=== PATIENT | male | born 1990 | race African-American/Black ===

== ENCOUNTER 2016-11-01 23:07 | Emergency (ER) | payer BC ==
[2016-11-02] MEDS ORDERED: Metoclopramide IV* 5 MG/ML 2 ML VIAL IV ONE (00:18)
[2016-11-02] MEDS ORDERED: Morphine INJ* 4 MG/ML 1 ML SYRINGE IV ONE (00:18)
[2016-11-02] MEDS ORDERED: NS 0.9% 1000 ML* 1,000 ML IV ONE (00:18)
[2016-11-02] MEDS ORDERED: LORazepam INJ* 2 MG/ML 1 ML VIAL IV PUSH ONE (00:19)
[2016-11-02 00:33] LABS: Hematocrit 48 % (42-52); Hemoglobin 15.9 g/dl (14.0-18.0); Mean Corpuscular HGB Conc 33 g/dl (31-36); Mean Corpuscular Hemoglobin 29 pg (27-31); Mean Corpuscular Volume 89 fL (80-94); Mean Platelet Volume 9 um3 (7.4-10.4); Red Blood Count 5.39 10^6/ul (4.0-5.4); Red Cell Distribution Width 14 % (10.5-15); White Blood Count 8.7 10^3/ul (3.5-10.8)
--- NOTE | 2016-11-02 00:52 | ED ---
Ray Marino SooYoung, scribed for Jose Bourne MD on 11/02/16 at 0019 . GI/ HPI - HPI Summary HPI Summary: A 25 y/o M presents to ED with c/o vomiting onset approx 2029. Associated sx: chills. Pert PMHx: cyclical vomiting syndrome, dx 04/27/2016. Last seen in ED on 04/29/2016. Mother states, pt has been previously given Ativan and Reglan which helped. PCP is Dr. Lopes. - History of Current Complaint Chief Complaint: EDNauseaVomitDiarrh Time Seen by Provider: 11/02/16 00:13 Stated Complaint: VOMITING Hx Obtained From: Patient, Family/Inspector [employer] Onset/Duration: Started Hours Ago - approx 2029, Still Present Timing: Intermittent Pain Intensity: 7 - out of 10 Associated Signs and Symptoms: Positive: Chills - Allergy/Home Medications Allergies/Adverse Reactions: Allergies Allergy/AdvReac Type Severity Reaction Status Date / Time No Known Allergies Allergy Verified 04/29/16 10:18 PMH/Surg Hx/FS Hx/Imm Hx Previously Healthy: No Endocrine/Hematology History: Denies: Hx Diabetes, Hx Thyroid Disease Cardiovascular History: Denies: Hx Congestive Heart Failure, Hx Hypertension Respiratory History: Reports: Hx Asthma Denies: Hx Chronic Obstructive Pulmonary Disease (COPD) GI History: Denies: Hx Ulcer History: Denies: Hx Renal Disease Psychiatric History: Reports: Hx Attention Deficit Hyperactivity Disorder Infectious Disease History: Denies: Hx Hepatitis, Hx Human Immunodeficiency Virus (HIV), Traveled Outside the [place] in Last 30 Days - Family History Known Family History: Positive: Unknown Family History: Pt is adopted. - Social History Occupation: Employed Full-time Lives: With Family Alcohol Use: Occasionally Alcohol Amount: "a few drinks once or twice a month" "I just drank too much last time" Hx Substance Use: Yes Substance Use Type: Reports: Sedatives Substance Use Comment - Amount & Last Used: pt tested positive for barbiturate Hx Tobacco Use: Yes Smoking Status (MU): Current Some Day Smoker Type: Cigarettes Amount Used/How Often: a couple per day Review of Systems Positive: Chills Positive: Vomiting All Other Systems Reviewed And Are Negative: Yes Physical Exam Triage Information Reviewed: Yes Vital Signs On Initial Exam: Initial Vitals Temp Pulse Resp BP Pulse Ox 96.7 F 53 18 153/89 100 11/01/16 23:13 11/01/16 23:13 11/01/16 23:13 11/01/16 23:13 11/01/16 23:13 Vital Signs Reviewed: Yes Appearance: Positive: Well-Appearing, Pain Distress - mild discomfort Skin: Positive: Warm Head/Face: Positive: Normal Head/Face Inspection Eyes: Positive: PAOLO ENT: Positive: Hearing grossly normal Neck: Positive: Supple Respiratory/Lung Sounds: Positive: Clear to Auscultation, Breath Sounds Present Cardiovascular: Positive: RRR Abdomen Description: Positive: Nontender, Soft. Negative: Distended, Guarding Bowel Sounds: Positive: Present Neurological: Positive: Sensory/Motor Intact, Alert, Oriented to Person Place, Time, Normal Gait Psychiatric: Positive: Affect/Mood Appropriate Diagnostics - Vital Signs Vital Signs Temp Pulse Resp BP Pulse Ox 11/01/16 23:13 96.7 F 53 18 153/89 100 - Laboratory Lab Results: Lab Results 11/02/16 Range/Units 00:24 WBC 8.7 (3.5-10.8) 10^3/ul RBC 5.39 (4.0-5.4) 10^6/ul Hgb 15.9 (14.0-18.0) g/dl Hct 48 (42-52) % MCV 89 (80-94) fL MCH 29 (27-31) pg MCHC 33 (31-36) g/dl RDW 14 (10.5-15) % Plt Count 201 (150-450) 10^3/ul MPV 9 (7.4-10.4) um3 Neut % (Auto) 66.6 (38-83) % Lymph % (Auto) 25.2 (25-47) % Carter % (Auto) 7.5 (1-9) % Eos % (Auto) 0.3 (0-6) % Baso % (Auto) 0.4 (0-2) % Absolute Neuts (auto) 5.8 (1.5-7.7) 10^3/ul Absolute Lymphs (auto) 2.2 (1.0-4.8) 10^3/ul Absolute Monos (auto) 0.7 (0-0.8) 10^3/ul Absolute Eos (auto) 0 (0-0.6) 10^3/ul Absolute Basos (auto) 0 (0-0.2) 10^3/ul Absolute Nucleated RBC 0.01 10^3/ul Nucleated RBC % 0.1 Result Diagrams: 11/02/16 00:24 11/02/16 00:24 Lab Statement: Any lab studies that have been ordered have been reviewed, and results considered in the medical decision making process. Re-Evaluation - Re-Evaluation First Eval Change: Improved - tolerating po GIGU Course/Dx - Course Course Of Treatment: Pt is a 25 y/o M presenting vomiting and chills onset approx 2029. Pert PMHx: cyclical vomiting syndrome, dx 04/27/2016. Last seen in ED on 04/29/2016. Pt given fluids, morphine, Reglan, Ativan in ED. D/C home with Reglan. - Diagnoses Provider Diagnoses: Nausea & vomiting Discharge - Discharge Plan Condition: Improved Disposition: HOME Prescriptions: Metoclopramide TAB* [Reglan TAB*] 10 mg PO Q6H PRN #10 tab PRN Reason: Nausea Patient Education Materials: Metoclopramide (By mouth), Acute Nausea and Vomiting (ED) Referrals: Ant Lopes MD [Primary Care Provider] - Additional Instructions: Please return to the ED if you experience new or worsening symptoms. The documentation as recorded by the Ray lerner SooYoung accurately reflects the service I personally performed and the decisions made by , Jose Bourne MD.
[2016-11-02 00:55] LABS: Albumin 4.9 g/dL (3.2-5.2); BUN/Creatinine Ratio 15.8 (8-20); Calcium 9.8 mg/dL (8.6-10.3); EGFR African American 117.7 (>60); EGFR Non-African American 91.5 (>60); Globulin 2.7 g/dL (2-4); Total Bilirubin 0.9 mg/dL (0.2-1.0); Total Protein 7.6 g/dL (6.4-8.9)
[2016-11-02 03:19] VITALS: BP 131/78
== END 2016-11-02 03:18 | disposition home or self-care (01) ==
LOC: ED 23:07
DX: R11.2 Nausea with vomiting, unspecified (principal); R68.83 Chills (without fever); J45.909 Unspecified asthma, uncomplicated; F90.9 Attention-deficit hyperactivity disorder, unspecified type; Z72.0 Tobacco use
CPT/HCPCS: 36415; 80053; 83605; 83690; 83735; 85025; 96361; 96374; 96375; 99283; J2060; J2270

== ENCOUNTER 2016-11-04 07:29 | Observation (INO) | payer BC ==
[2016-11-04] MEDS ORDERED: Famotidine IV* 10 MG/ML 2 ML (20 mg) IV ONE (07:42)
[2016-11-04] MEDS ORDERED: NS 0.9% 1000 ML* 2,000 ML IV ONE (07:42)
[2016-11-04] MEDS ORDERED: Metoclopramide IV* 5 MG/ML 2 ML VIAL IV ONE (07:42)
[2016-11-04] MEDS ORDERED: LORazepam INJ* 2 MG/ML 1 ML VIAL IV PUSH ONE (07:44)
[2016-11-04] MEDS ORDERED: PROCHLORPERAZINE INJ 5 MG/ML 2 ML VIAL IV ONE (08:07)
[2016-11-04 08:23] LABS: Hematocrit 47 % (42-52); Hemoglobin 15.8 g/dl (14.0-18.0); Mean Corpuscular HGB Conc 34 g/dl (31-36); Mean Corpuscular Hemoglobin 30 pg (27-31); Mean Corpuscular Volume 89 fL (80-94); Mean Platelet Volume 9 um3 (7.4-10.4); Red Blood Count 5.29 10^6/ul (4.0-5.4); Red Cell Distribution Width 14 % (10.5-15); White Blood Count 7.3 10^3/ul (3.5-10.8)
[2016-11-04 08:40] LABS: Albumin 4.4 g/dL (3.2-5.2); BUN/Creatinine Ratio 19.6 (8-20); C Reactive Protein 1.02 mg/L (< 5.00); Calcium 9.6 mg/dL (8.6-10.3); EGFR African American 116.4 (>60); EGFR Non-African American 90.5 (>60); Globulin 2.7 g/dL (2-4); Total Bilirubin 0.7 mg/dL (0.2-1.0); Total Protein 7.1 g/dL (6.4-8.9)
--- NOTE | 2016-11-04 08:40 | RAD ---
INDICATION: Epigastric abdominal pain. COMPARISON: Comparison is made with a prior KUB series from February 07, 2014. TECHNIQUE: Supine and upright views of the abdomen were obtained. FINDINGS: The small bowel and colon appear nondistended. No free intraperitoneal air is seen. No abnormal calcifications are seen. IMPRESSION: NO EVIDENCE FOR ACUTE FINDING.
[2016-11-04] MEDS ORDERED: Ondansetron INJ* 2 MG/ML VIAL IV ONE ×2 (10:19→11:56)
[2016-11-04] MEDS ORDERED: D5W 1/2 NS KCl 20 Meq 1000 ML* 1,000 ML IV SCH (12:00)
[2016-11-04] MEDS ORDERED: Ondansetron INJ* 2 MG/ML VIAL IV PRN (13:04)
--- NOTE | 2016-11-04 13:50 | ADMNOTE ---
Subjective Date of Service: 11/04/16 Interval History: ADMISSION HISTORY AND PHYSICAL EXAM: Allergies Allergy/AdvReac Type Severity Reaction Status Date / Time No Known Allergies Allergy Verified 04/29/16 10:18 Home Medications Medication Instructions Recorded Confirmed Type Albuterol Sulfate [Proair 1 puff INH Q6HR PRN 11/04/16 11/04/16 History Respiclick] Metoclopramide TAB* [Reglan TAB*] 10 mg PO Q6H PRN #10 tab 11/04/16 Rx HPI: Patient states he has had two days of abdominal pain and emesis before admission, still has it today. He has had many episodes over th past few years. He states metoclopramide works better than other anti-emetics. He also requested IV lorazepam for anxiety. Family History: Findings - adopted, does not know his family hx Social History: Findings - Former heavy drinker. Smokes cigarettes and marijuana. Lives with his mother. Works part-time at a restaurant. Past Medical History: Findings - asthma, uses albuterol inhaler PRN Review of Systems - Measurements Intake and Output: Intake and Output Last 24 Hours 11/02/16 11/03/16 11/04/16 11/05/16 06:59 06:59 06:59 06:59 Weight 79 lb 6.4 oz - Review of Systems Constitutional Symptoms: Negative: Weight Gain, Weight Loss, Weakness, Fatigue, Fever, Night Sweats, Unexplained Falls, Other Dermatology: Positive: Normal HEENT: Positive: Normal Eyes: Positive: Normal Thyroid: Positive: Normal Pulmonary: Positive: Asthma Cardiology: Positive: Normal Gastroenterology: Positive: Abdominal Pain, Nausea, Vomiting Genital - Urinary: Positive: Normal Musculoskeletal: Negative: Joint Pain, Joint Stiffness, Arthritis, Osteoporosis, Low Back Pain , Sciatica, Joint Deformities, Kyphoscoliosis, Other Endocrinology: Positive: Normal Hematologic/Lymphatic: Negative: Anemia, Easy Brusing, Hx Leukemia, Hx Lymphoma, Use of Anticoagulant, Use of Antiplatelet Drugs, Other Neurology: Positive: Normal Psychiatry: Positive: Normal Objective Active Medications: Potassium Chloride/Dextrose (D5w 1/2 Ns Kcl 20 Meq 1000 Ml*) 1,000 mls @ 50 mls /hr IV PER RATE ATIYA Last Admin: 11/04/16 13:08 Dose: 50 mls/hr Lorazepam (Ativan Inj*) 1 mg IV PUSH Q6H PRN PRN Reason: ANXIETY Metoclopramide HCl (Reglan Iv*) 5 mg IV Q6H ATIYA Ondansetron HCl (Zofran Inj*) 4 mg IV Q4H PRN PRN Reason: NAUSEA/VOMITING Vital Signs 11/04/16 11/04/16 12:03 12:09 Temperature 98.7 F Pulse Rate 55 58 Respiratory 18 Rate Blood Pressure 152/88 (mmHg) O2 Sat by Pulse 98 98 Oximetry Oxygen Devices in Use Now: None Appearance: Alert partly up in bed holding emesis basin. In fair spirits. Occ dry heaves. Ears/Nose/Mouth/Throat: Clear Oropharnyx, Mucous Membranes Moist Neck: NL Appearance and Movements; NL JVP, No Thyroid Enlargement, Masses Respiratory: Symmetrical Chest Expansion and Respiratory Effort, Clear to Auscultation, Clear to Percussion Cardiovascular: NL Sounds; No Murmurs; No JVD, RRR, No Edema, - Abdominal: NL Sounds; No Tenderness; No Distention, No Hepatosplenomegaly, - Extremities: No Edema, No Clubbing, Cyanosis, - Skin: No Rash or Ulcers, No Nodules or Sclerosis, - Neurological: Alert and Oriented x 3, NL Sensation Result Diagrams: 11/04/16 08:14 11/04/16 08:14 Assess/Plan/Problems-Billing Assessment: - Patient Problems (1) Intractable nausea and vomiting Current Visit: No Status: Acute Priority: High Onset Date: 02/10/14 Code (s): R11.2 - NAUSEA WITH VOMITING, UNSPECIFIED SNOMED Code(s): 908912982 Comment: Suspect cyclic vomiting. IV fluids, IV scheduled metoclopramide, PRN ondansetron. (2) Asthma Current Visit: Yes Status: Acute Code(s): J45.909 - UNSPECIFIED ASTHMA, UNCOMPLICATED SNOMED Code(s): 581588649 Comment: PRN albuterol ordered.
[2016-11-04] MEDS: D5W 1/2 NS KCl 20 Meq 1000 ML* 1,000 ML IV SCH (13:55)
[2016-11-04] MEDS: Metoclopramide IV* 5 MG/ML 2 ML VIAL IV SCH ×2 (13:55→20:01)
[2016-11-04] MEDS: LORazepam INJ* 2 MG/ML 1 ML VIAL IV PUSH PRN ×2 (14:07→20:12)
[2016-11-04 22:40] LABS: Urine Bilirubin Negative (Negative); Urine Glucose Negative (Negative); Urine Nitrite Negative (Negative)
[2016-11-05] MEDS: Metoclopramide IV* 5 MG/ML 2 ML VIAL IV SCH ×3 (02:52→12:07)
[2016-11-05] MEDS: D5W 1/2 NS KCl 20 Meq 1000 ML* 1,000 ML IV SCH (02:55)
--- NOTE | 2016-11-05 11:20 | DCNOTE ---
Subjective Date of Service: 11/05/16 Interval History: No emesis today. Tolerated clear liquid twell. No new c/o. Anxious to go home. Family History: Findings - adopted, does not know his family hx Social History: Findings - Former heavy drinker. Smokes cigarettes and marijuana. Lives with his mother. Works part-time at a restaurant. Past Medical History: Findings - asthma, uses albuterol inhaler PRN Objective Active Medications: Metoclopramide HCl (Reglan Tab*) 10 mg PO AC ATIYA Vital Signs 11/04/16 11/04/16 11/04/16 12:03 12:09 14:07 Temperature 98.7 F Pulse Rate 55 58 Respiratory 18 18 Rate Blood Pressure 152/88 (mmHg) O2 Sat by Pulse 98 98 Oximetry 11/04/16 11/04/16 11/04/16 15:07 15:09 16:20 Temperature 99.3 F 99.3 F Pulse Rate 73 92 Respiratory 18 20 22 Rate Blood Pressure 116/69 85/57 (mmHg) O2 Sat by Pulse 87 87 Oximetry 11/04/16 11/04/16 11/04/16 18:17 19:15 20:12 Temperature 98.8 F Pulse Rate 62 Respiratory 20 22 Rate Blood Pressure 131/69 96/49 (mmHg) O2 Sat by Pulse 100 Oximetry 11/04/16 11/04/16 11/05/16 21:12 23:28 05:57 Temperature 99.3 F 97.7 F Pulse Rate 96 68 Respiratory 22 16 16 Rate Blood Pressure 139/59 142/68 (mmHg) O2 Sat by Pulse 96 100 Oximetry Oxygen Devices in Use Now: None Appearance: Alert, sitting on the edge of his bed. In good spirits. Looks comfortable. Eyes: No Scleral Icterus Abdominal: NL Sounds; No Tenderness; No Distention, No Hepatosplenomegaly, - Neurological: Alert and Oriented x 3, NL Sensation Result Diagrams: 11/04/16 08:14 11/04/16 08:14 Assess/Plan/Problems-Billing Assessment: - Patient Problems (1) Intractable nausea and vomiting Current Visit: No Status: Acute Priority: High Onset Date: 02/10/14 Code (s): R11.2 - NAUSEA WITH VOMITING, UNSPECIFIED SNOMED Code(s): 850490907 Comment: Suspect cyclic vomiting. This episode resolved. Rx metoclopramide 10 mg tid PRN at home. (2) Asthma Current Visit: Yes Status: Acute Code(s): J45.909 - UNSPECIFIED ASTHMA, UNCOMPLICATED SNOMED Code(s): 402449177 Comment: PRN albuterol ordered. Status and Disposition: Discharge now. Fup Dr. Lopes.
[2016-11-05] MEDS ORDERED: Metoclopramide TAB* 10 MG PO SCH (11:30)
[2016-11-05 11:42] VITALS: BP 144/82
--- NOTE | 2016-11-08 10:47 | ED ---
Nino Marino Thomas, scribed for Dar Rizzo MD on 11/04/16 at 0811 . GI/ HPI - HPI Summary HPI Summary: Pt is a 25 y/o male presenting to the ED c/o N/V. His last visit to the ED was 3 days ago with similar Sx. Additionally c/o chills. He has extensive Hx of severe N/V with multiple episodes each year. Previously performed endoscopies, CT scans, and US were all negative for dz. The pt's PCP suspects abdominal migraine. Per his mother, Sx are relieved by a combination of IV fluids, Reglan , and Ativan. Per his mother, pt took Zofran earlier today but was unable to keep it down. Per his mother Sx are not relieved by Reglan alone. The pt last ate yesterday. SHx: daily marijuana use - History of Current Complaint Chief Complaint: EDNauseaVomitDiarrh Time Seen by Provider: 11/04/16 07:31 Stated Complaint: VOMITING, NAUSEA Hx Obtained From: Patient, Family/Customer Relations Representative - mother Onset/Duration: Still Present, Worse Since Timing: Constant Current Severity: Moderate Pain Intensity: 5 Associated Signs and Symptoms: Positive: Nausea, Vomiting Alleviating Factor(s): Nothing - Allergy/Home Medications Allergies/Adverse Reactions: Allergies Allergy/AdvReac Type Severity Reaction Status Date / Time No Known Allergies Allergy Verified 04/29/16 10:18 Home Medications: Home Medications Albuterol Sulfate [Proair Respiclick] 1 puff INH Q6HR PRN 11/04/16 [History Confirmed 11/04/16] PMH/Surg Hx/FS Hx/Imm Hx Previously Healthy: No Endocrine/Hematology History: Denies: Hx Diabetes, Hx Thyroid Disease Cardiovascular History: Denies: Hx Congestive Heart Failure, Hx Hypertension Respiratory History: Reports: Hx Asthma Denies: Hx Chronic Obstructive Pulmonary Disease (COPD) GI History: Denies: Hx Ulcer History: Denies: Hx Renal Disease Psychiatric History: Reports: Hx Attention Deficit Hyperactivity Disorder Infectious Disease History: No Infectious Disease History: Denies: Hx Hepatitis, Hx Human Immunodeficiency Virus (HIV), Traveled Outside the [place] in Last 30 Days - Family History Known Family History: Positive: Unknown Family History: Pt is adopted. - Social History Alcohol Use: Occasionally Alcohol Amount: "a few drinks once or twice a month" "I just drank too much last time" Hx Substance Use: Yes Substance Use Type: Reports: Marijuana - daily, Sedatives Substance Use Comment - Amount & Last Used: pt tested positive for barbiturate Hx Tobacco Use: Yes Smoking Status (MU): Current Some Day Smoker Type: Cigarettes Amount Used/How Often: a couple per day Review of Systems Positive: Chills Eyes: Negative ENT: Negative Cardiovascular: Negative Respiratory: Negative Positive: Vomiting, Nausea Genitourinary: Negative Musculoskeletal: Negative Skin: Negative Neurological: Negative Psychological: Normal All Other Systems Reviewed And Are Negative: Yes Physical Exam - Summary Physical Exam Summary: VITAL SIGNS: Reviewed. GENERAL: Patient is a well-developed and nourished male who is lying comfortable in the stretcher. Patient is not in any acute respiratory distress. HEAD AND FACE: Normocephalic and atraumatic. EYES: PERRLA, EOMI x 2, No injected conjunctiva. EARS: Hearing grossly intact. Ear canals and tympanic membranes are WNL. MOUTH: Oropharynx within normal limits. NECK: Supple, trachea is midline, no adenopathy, no JVD. CHEST: Symmetric, no tenderness at palpation LUNGS: Clear to auscultation bilaterally. No wheezing or crackles. CVS: RRR, S1 and S2 present, no murmurs or gallops appreciated. ABDOMEN: Soft, non-tender. No signs of distention. Positive bowel sounds. No rebound no guarding, and no masses palpated. No abdominal bruit or pulsations. EXTREMITIES: FROM in all major joints, no edema, no cyanosis or clubbing. NEURO: Alert and oriented x 3. No acute neurological deficits. Speech is normal. SKIN: Dry and warm Triage Information Reviewed: Yes Vital Signs On Initial Exam: Initial Vitals Temp Pulse Resp BP Pulse Ox 97 F 56 16 152/88 99 11/04/16 07:30 11/04/16 07:30 11/04/16 07:30 11/04/16 07:30 11/04/16 07:30 Vital Signs Reviewed: Yes Diagnostics - Vital Signs Vital Signs Temp Pulse Resp BP Pulse Ox 11/04/16 07:30 97 F 56 16 152/88 99 - Laboratory Lab Results: Lab Results 11/04/16 11/04/16 Range/Units 08:14 08:14 WBC 7.3 (3.5-10.8) 10^3/ul RBC 5.29 (4.0-5.4) 10^6/ul Hgb 15.8 (14.0-18.0) g/dl Hct 47 (42-52) % MCV 89 (80-94) fL MCH 30 (27-31) pg MCHC 34 (31-36) g/dl RDW 14 (10.5-15) % Plt Count 183 (150-450) 10^3/ul MPV 9 (7.4-10.4) um3 Neut % (Auto) 57.1 (38-83) % Lymph % (Auto) 32.5 (25-47) % Swisher % (Auto) 9.0 (1-9) % Eos % (Auto) 0.7 (0-6) % Baso % (Auto) 0.7 (0-2) % Absolute Neuts (auto) 4.2 (1.5-7.7) 10^3/ul Absolute Lymphs (auto) 2.4 (1.0-4.8) 10^3/ul Absolute Monos (auto) 0.7 (0-0.8) 10^3/ul Absolute Eos (auto) 0.1 (0-0.6) 10^3/ul Absolute Basos (auto) 0 (0-0.2) 10^3/ul Absolute Nucleated RBC 0.01 10^3/ul Nucleated RBC % 0.1 Sodium 138 (133-145) mmol/L Potassium 4.0 (3.5-5.0) mmol/L Chloride 107 (101-111) mmol/L Carbon Dioxide 27 (22-32) mmol/L Anion Gap 4 (2-11) mmol/L BUN 20 (6-24) mg/dL Creatinine 1.02 (0.67-1.17) mg/dL Est GFR ( Amer) 116.4 (>60) Est GFR (Non-Af Amer) 90.5 (>60) BUN/Creatinine Ratio 19.6 (8-20) Glucose 118 H (70-100) mg/dL Calcium 9.6 (8.6-10.3) mg/dL Total Bilirubin 0.70 (0.2-1.0) mg/dL AST 18 (13-39) U/L ALT 28 (7-52) U/L Alkaline Phosphatase 58 (34-104) U/L C-Reactive Protein 1.02 (< 5.00) mg/L Total Protein 7.1 (6.4-8.9) g/dL Albumin 4.4 (3.2-5.2) g/dL Globulin 2.7 (2-4) g/dL Albumin/Globulin Ratio 1.6 (1-3) Amylase 47 (29-103) U/L Lipase 26 (11.0-82.0) U/L Result Diagrams: 11/04/16 08:14 11/04/16 08:14 Lab Statement: Any lab studies that have been ordered have been reviewed, and results considered in the medical decision making process. - Radiology XR Abdomen Xray Interpretation: No Acute Changes - No evidence for acute finding. Radiology Interpretation Completed By: Radiologist Re-Evaluation - Re-Evaluation First Eval Re-Evaluation Time: 11:35 Change: Unchanged Comment: Pt was cleared for discharge but he resumed vomiting, so he will not be discharged. GIGU Course/Dx - Course Assessment/Plan: The pt is a 25 y/o male presenting to the ED c/o N/V. His last visit to the ED was 3 days ago with similar Sx. He additionally c/o chills. He has extensive history of severe N/V with multiple episodes each year. Previously performed endoscopies, CT scans, and US were all negative for dz. The pt's PCP suspects abdominal migraine. Per his mother, Sx are relieved by a combination of IV fluids, Reglan, and Ativan. Per his mother, pt took Zofran earlier today but was unable to keep it down. Per his mother Sx are not relieved by Reglan alone. The patient reports daily marijuana use. Test results were within normal limit except glucose 118. In the ED course the patient reported no abdominal pain. Because the bloodwork was within normal limits, there was no need for imaging. The patient was given a couple liters of IV fluids. The patient was given Zofran, Reglan, and Ativan, which is the usual cocktail that works for his cyclic vomiting per his mother. The patient was observed for 4 hours and the nausea and vomiting did not stop. Because he was unable to tolerate PO intake due to intractable vomiting, the patient will be admitted to the hospital. The patients case was discussed with Dr. Grande, who will accept the patients admission. The patient is hemodynamically stable and alert & oriented x 3. - Diagnoses Differential Diagnoses - Male: Constipation, Colitis, Dehydration, Gastroenteritis (Bacterial), Gastroenteritis (Viral) Provider Diagnoses: Cyclic vomiting syndrome, Intractable vomiting - Physician Notifications Discussed Care Of Patient With: Jac Grande Time Discussed With Above Provider: 11:40 Instructed by Provider To: Other - Agrees to admit Discharge - Discharge Plan Condition: Improved Disposition: ADMITTED TO [facility] The documentation as recorded by the Nino lerner Thomas accurately reflects the service I personally performed and the decisions made by , Dar Rizzo MD.
--- NOTE | 2016-11-13 15:12 | DS ---
CC: Chandler Lopes MD * DISCHARGE SUMMARY: DATE OF ADMISSION: 11/04/16 DATE OF DISCHARGE: 11/05/16 HISTORY OF PRESENT ILLNESS: This 25-year-old man was admitted for an episode of cyclic vomiting syndrome. He had had 2 days of abdominal pain and emesis before admission and was still having it. He was not able to keep any medications down at home. He did state that when he could get it either p.o. or IV that metoclopramide worked better than other antiemetics. He also requests IV lorazepam for anxiety. The patient had no significant laboratory abnormalities. He was given intravenous fluids and symptomatic treatment, mainly with metoclopramide. I note that on admission, his BUN was 20, creatinine 1.02, potassium was 4.0. Labs were not repeated. The patient gradually recovered. He stopped having emesis and abdominal pain and was able to tolerate a reasonable amount of diet. FINAL DIAGNOSES: 1. Cyclic vomiting syndrome. 2. Asthma. DISCHARGE MEDICATIONS: 1. Albuterol inhaler 1 puff every 6 hours p.r.n. 2. Metoclopramide 10 mg t.i.d. p.r.n. [id number]/[facility] #: [id number] MTDD
== END 2016-11-05 12:20 | disposition home or self-care (01) ==
LOC: ED 07:29 → MEDTELE 11:46
PROVIDERS: ADMIT Internal Medicine; ATTEND Internal Medicine
DX: G43.A0 Cyclical vomiting, in migraine, not intractable (principal); J45.909 Unspecified asthma, uncomplicated
CPT/HCPCS: 36415; 74020; 80053; 81003; 82150; 83690; 85025; 86140; 96374; 96375; 99284; G0378; J0780; J2060; J2405

== ENCOUNTER 2017-06-26 05:56 | Emergency (ER) | payer BC ==
[2017-06-26] MEDS ORDERED: NS 0.9% 1000 ML* 2,000 ML IV ONE (06:20)
[2017-06-26] MEDS ORDERED: Morphine INJ* 4 MG/ML 1 ML CARPUJECT IV ONE (06:20)
[2017-06-26] MEDS ORDERED: Ketorolac INJ* 30 MG/ML 1 ML VIAL IV ONE (06:20)
[2017-06-26] MEDS ORDERED: Pantoprazole IV* 40 MG IV ONE (06:20)
[2017-06-26] MEDS ORDERED: Metoclopramide IV* 5 MG/ML 2 ML VIAL IV ONE (06:20)
[2017-06-26] MEDS ORDERED: diPHENhydraMINE IV* 50 MG/ML 1 ml VIAL (BENADRYL) IV ONE (06:21)
[2017-06-26 06:46] LABS: ABS Basophils 0.1 10^3/ul (0-0.2); ABS Eosinophils 0 10^3/ul (0-0.6); ABS Lymphocytes 2.8 10^3/ul (1.0-4.8); ABS Monocytes 0.7 10^3/ul (0-0.8); ABS Neutrophils 7.2 10^3/ul (1.5-7.7); ABS Nucleated RBC 0 10^3/ul; Eosinophil % 0.3 % (0-6); Hematocrit 50 % (42-52); Hemoglobin 17.3 g/dl (14.0-18.0); Lymphocyte % 26.4 % (25-47); Mean Corpuscular HGB Conc 35 g/dl (31-36); Mean Corpuscular Hemoglobin 31 pg (27-31); Mean Corpuscular Volume 89 fL (80-94); Mean Platelet Volume 8 um3 (7.4-10.4); Nucleated Red Blood Cells % 0; Platelet Count 284 10^3/ul (150-450); Red Blood Count 5.63 10^6/ul (4.0-5.4); Red Cell Distribution Width 14 % (10.5-15); White Blood Count 10.7 10^3/ul (3.5-10.8)
[2017-06-26 07:00] LABS: EGFR Non-African American 85.8 (>60)
[2017-06-26 08:16] VITALS: BP 126/76
--- NOTE | 2017-06-27 21:18 | ED ---
Gwendolyn Marino Gabriel, scribbetty for Nia Peña MD on 06/26/17 at 0628 . Abdominal Pain/Male - HPI Summary HPI Summary: This patient is a 26 year old M presenting to [facility] accompanied by his mother with a chief complaint of vomiting since 0100. The patient rates the pain 7/10 in severity. Patient reports ABD pain and diaphoresis. Patient has had episodes like this previously and been diagnosed with cyclical vomiting and abdominal migraines. - History of Current Complaint Chief Complaint: EDAbdPain Stated Complaint: ABD PAIN/VOMITING Time Seen by Provider: 06/26/17 06:20 Hx Obtained From: Patient, Family/[place] Onset/Duration: Lasting Hours, Still Present Timing: Constant Severity Initially: Moderate Severity Currently: Moderate Pain Intensity: 7 Pain Scale Used: 0-10 Numeric Location: Diffuse Radiates: No Associated Signs And Symptoms: Positive: Diaphoresis, Vomiting - Allergies/Home Medications Allergies/Adverse Reactions: Allergies Allergy/AdvReac Type Severity Reaction Status Date / Time No Known Allergies Allergy Verified 04/29/16 10:18 PMH/Surg Hx/FS Hx/Imm Hx Endocrine/Hematology History: Denies: Hx Diabetes, Hx Thyroid Disease Cardiovascular History: Denies: Hx Congestive Heart Failure, Hx Hypertension Respiratory History: Reports: Hx Asthma Denies: Hx Chronic Obstructive Pulmonary Disease (COPD) GI History: Reports: Other GI Disorders - cyclical vomiting and abdominal migraines Denies: Hx Ulcer History: Denies: Hx Renal Disease Musculoskeletal History: Denies: Hx Arthritis, Hx Osteoporosis Sensory History: Denies: Hx Cataracts, Hx Contacts or Glasses, Hx Glaucoma, Hx Hearing Aid Opthamlomology History: Denies: Hx Cataracts, Hx Contacts or Glasses, Hx Glaucoma Psychiatric History: Reports: Hx Attention Deficit Hyperactivity Disorder Infectious Disease History: No Infectious Disease History: Denies: Hx Hepatitis, Hx Human Immunodeficiency Virus (HIV), Traveled Outside the [place] in Last 30 Days - Family History Known Family History: Positive: Unknown Family History: Pt is adopted. - Social History Alcohol Use: Occasionally Alcohol Amount: "a few drinks once or twice a month" "I just drank too much last time" Hx Substance Use: Yes Substance Use Type: Reports: Marijuana - daily, Sedatives Substance Use Comment - Amount & Last Used: pt tested positive for barbiturate Hx Tobacco Use: Yes Smoking Status (MU): Current Some Day Smoker Type: Cigarettes Amount Used/How Often: a couple per day Review of Systems Positive: Skin Diaphoresis Positive: Abdominal Pain, Vomiting All Other Systems Reviewed And Are Negative: Yes Physical Exam - Summary Physical Exam Summary: VITAL SIGNS: Reviewed. GENERAL: Patient is a well-developed and nourished male who is lying comfortable in the stretcher. Patient is not in any acute respiratory distress. HEAD AND FACE: No signs of trauma. No ecchymosis, hematomas or skull depressions. No sinus tenderness. EYES: PERRLA, EOMI x 2, No injected conjunctiva, no nystagmus. EARS: Hearing grossly intact. Ear canals and tympanic membranes are within normal limits. MOUTH: Oropharynx within normal limits. NECK: Supple, trachea is midline, no adenopathy, no JVD, no carotid bruit, no c- spine tenderness, neck with full ROM. CHEST: Symmetric, no tenderness at palpation LUNGS: Clear to auscultation bilaterally. No wheezing or crackles. CVS: Regular rate and rhythm, S1 and S2 present, no murmurs or gallops appreciated. ABDOMEN: Soft, non-tender. No signs of distention. No rebound no guarding, and no masses palpated. Bowel sounds are normal. EXTREMITIES: FROM in all major joints, no edema, no cyanosis or clubbing. NEURO: Alert and oriented x 3. No acute neurological deficits. Speech is normal and follows commands. SKIN: diaphoretic Triage Information Reviewed: Yes Vital Signs On Initial Exam: Initial Vitals Temp Pulse Resp BP Pulse Ox 95.3 F 65 18 147/95 100 06/26/17 06:03 06/26/17 06:03 06/26/17 06:03 06/26/17 06:03 06/26/17 06:03 Vital Signs Reviewed: Yes Diagnostics - Vital Signs Vital Signs Temp Pulse Resp BP Pulse Ox 06/26/17 06:03 95.3 F 65 18 147/95 100 - Laboratory Lab Results: Lab Results 06/26/17 06/26/17 06/26/17 Range/Units 06:30 06:30 06:30 WBC 10.7 (3.5-10.8) 10^3/ul RBC 5.63 H (4.0-5.4) 10^6/ul Hgb 17.3 (14.0-18.0) g/dl Hct 50 (42-52) % MCV 89 (80-94) fL MCH 31 (27-31) pg MCHC 35 (31-36) g/dl RDW 14 (10.5-15) % Plt Count 284 (150-450) 10^3/ul MPV 8 (7.4-10.4) um3 Neut % (Auto) 66.6 (38-83) % Lymph % (Auto) 26.4 (25-47) % Murray % (Auto) 6.1 (1-9) % Eos % (Auto) 0.3 (0-6) % Baso % (Auto) 0.6 (0-2) % Absolute Neuts (auto) 7.2 (1.5-7.7) 10^3/ul Absolute Lymphs (auto) 2.8 (1.0-4.8) 10^3/ul Absolute Monos (auto) 0.7 (0-0.8) 10^3/ul Absolute Eos (auto) 0 (0-0.6) 10^3/ul Absolute Basos (auto) 0.1 (0-0.2) 10^3/ul Absolute Nucleated RBC 0 10^3/ul Nucleated RBC % 0 Sodium 136 (133-145) mmol/L Potassium 4.2 (3.5-5.0) mmol/L Chloride 98 L (101-111) mmol/L Carbon Dioxide 27 (22-32) mmol/L Anion Gap 11 (2-11) mmol/L BUN 17 (6-24) mg/dL Creatinine 1.06 (0.67-1.17) mg/dL Est GFR ( Amer) 110.4 (>60) Est GFR (Non-Af Amer) 85.8 (>60) BUN/Creatinine Ratio 16.0 (8-20) Glucose 155 H (70-100) mg/dL Lactic Acid 2.0 (0.5-2.0) mmol/L Calcium 10.5 H (8.6-10.3) mg/dL Total Bilirubin 0.60 (0.2-1.0) mg/dL AST 31 (13-39) U/L ALT 84 H (7-52) U/L Alkaline Phosphatase 74 (34-104) U/L C-Reactive Protein 2.17 (< 5.00) mg/L Total Protein 8.3 (6.4-8.9) g/dL Albumin 5.4 H (3.2-5.2) g/dL Globulin 2.9 (2-4) g/dL Albumin/Globulin Ratio 1.9 (1-3) Amylase 103 (29-103) U/L Lipase 134 H (11.0-82.0) U/L Result Diagrams: 06/26/17 06:30 06/26/17 06:30 Lab Statement: Any lab studies that have been ordered have been reviewed, and results considered in the medical decision making process. Abdominal Pain Fem Course/Dx - Course Assessment/Plan: This patient is a 26 year old M presenting to [facility] accompanied by his mother with a chief complaint of vomiting since 0100. The patient rates the pain 7/10 in severity. Patient reports ABD pain and diaphoresis. Patient has had episodes like this previously and been diagnosed with cyclical vomiting and abdominal migraines. Patient is signed out to Dr. Rizzo, pending disposition, awaiting labs. - Diagnoses Provider Diagnoses: Nausea and vomiting Discharge - Discharge Plan Condition: Stable Disposition: HOME Discharge Disposition Comment: Pt will be signed out to Dr. Rizzo Prescriptions: Metoclopramide TAB* [Reglan TAB*] 10 mg PO TID PRN #15 tab PRN Reason: Nausea Patient Education Materials: Acute Nausea and Vomiting (ED) Referrals: Ant Lopes MD [Primary Care Provider] - 3 Days Additional Instructions: Follow up with Dr. Lopes in three days. Return to the emergency department for any new or worsening symptoms. The documentation as recorded by the Gwendolyn lerner Gabriel accurately reflects the service I personally performed and the decisions made by , Nia Peña MD.
--- NOTE | 2017-06-28 18:46 | ED ---
Nino Marino Thomas, scribed for Dar Rizzo MD on 06/26/17 at 0737 . Progress - Progress Note Progress Note: The patient is a sign out from Dr. Peña, pending labs. I evaluated the patient at 07:31. He is feeling better and is sleeping comfortably. PHYSICAL EXAM: VITAL SIGNS: Reviewed. GENERAL: Patient is a well-developed and nourished male who is sleeping comfortable in the stretcher. Patient is not in any acute respiratory distress. HEAD AND FACE: Normocephalic and atraumatic. EYES: PERRLA, EOMI x 2, No injected conjunctiva. EARS: Hearing grossly intact. Ear canals and tympanic membranes are WNL. MOUTH: Oropharynx within normal limits. NECK: Supple, trachea is midline, no adenopathy, no JVD. CHEST: Symmetric, no tenderness at palpation LUNGS: Clear to auscultation bilaterally. No wheezing or crackles. CVS: RRR, S1 and S2 present, no murmurs or gallops appreciated. ABDOMEN: Soft, non-tender. No signs of distention. Positive bowel sounds. No rebound no guarding, and no masses palpated. No abdominal bruit or pulsations. EXTREMITIES: FROM in all major joints, no edema, no cyanosis or clubbing. NEURO: Alert and oriented x 3. No acute neurological deficits. Speech is normal. SKIN: Dry and warm ASSESSMENT AND PLAN: The patient is a sign out from Dr. Peña. The patient came here with cyclic vomiting syndrome. After the patient was medicated, he feels better. Therefore, the patient will be discharged home to follow up with primary care. Condition is stable. Course/Dx - Diagnoses Provider Diagnoses: Nausea and vomiting The documentation as recorded by the Nino lerner Thomas accurately reflects the service I personally performed and the decisions made by Matthias morales Walter, MD.
== END 2017-06-26 08:15 | disposition home or self-care (01) ==
LOC: ED 05:56
DX: R11.2 Nausea with vomiting, unspecified (principal)
CPT/HCPCS: 36415; 80053; 82150; 83605; 83690; 85025; 86140; 96374; 96375; 99284; J1200; J1885; J2270; J2765

== ENCOUNTER 2017-06-28 09:41 | Emergency (ER) | payer BC ==
[2017-06-28] MEDS ORDERED: Morphine INJ* 4 MG/ML 1 ML CARPUJECT IV ONE (10:44)
[2017-06-28] MEDS ORDERED: Al Hydrox/Mg Hydrox/Simet LIQ* 30 ML UDC PO ONE ×2 (10:44→13:43)
[2017-06-28] MEDS ORDERED: NS 0.9% 1000 ML* 1,000 ML IV ONE (10:44)
[2017-06-28] MEDS ORDERED: LORazepam INJ* 2 MG/ML 1 ML VIAL IV PUSH ONE (10:46)
[2017-06-28] MEDS ORDERED: Morphine INJ* 2 MG/ML 1 ML CARPUJECT ONE (11:12)
[2017-06-28 11:14] LABS: ABS Basophils 0 10^3/ul (0-0.2); ABS Eosinophils 0 10^3/ul (0-0.6); ABS Lymphocytes 1.8 10^3/ul (1.0-4.8); ABS Monocytes 0.6 10^3/ul (0-0.8); ABS Neutrophils 5.7 10^3/ul (1.5-7.7); ABS Nucleated RBC 0 10^3/ul; Eosinophil % 0.6 % (0-6); Hematocrit 49 % (42-52); Hemoglobin 16.7 g/dl (14.0-18.0); Lymphocyte % 21.9 % (25-47); Mean Corpuscular HGB Conc 34 g/dl (31-36); Mean Corpuscular Hemoglobin 30 pg (27-31); Mean Corpuscular Volume 88 fL (80-94); Mean Platelet Volume 8 um3 (7.4-10.4); Nucleated Red Blood Cells % 0.1; Platelet Count 229 10^3/ul (150-450); Red Cell Distribution Width 14 % (10.5-15); White Blood Count 8.2 10^3/ul (3.5-10.8)
[2017-06-28 11:28] LABS: EGFR Non-African American 97.4 (>60)
--- NOTE | 2017-06-28 11:55 | RAD ---
Indication: Pancreatitis symptoms. Uncontrolled vomiting. Elevated LFTs. LEFT upper quadrant pain. Comparison: September 26, 2015 CT. Technique: Supine view of the abdomen. Report: Clear lung bases. Unremarkable bowel gas pattern. Small volume of stool at the hepatic flexure of the colon. Negative for suspicious calcifications. Unremarkable soft tissue contours. IMPRESSION: No abdominal pelvic pathologic process evident.
--- NOTE | 2017-06-28 11:57 | RAD ---
Indication: Pancreatitis symptoms. Uncontrolled vomiting. Elevated LFTs. LEFT upper quadrant pain. Comparison: Abdomen radiograph of the same date and September 26, 2015 CT. Technique: RIGHT upper quadrant ultrasound. Report: Appropriate direction flow documented in the portal and hepatic veins. 16.4 cm liver is normal in echogenicity. Negative for focal hepatic lesions. Negative for intrahepatic biliary dilatation. 4.6 mm common bile duct. Adequate distended gallbladder with normal 2.7 mm wall is without pathologic finding. Negative for sonographic Ybarra's sign. Unremarkable well visualized pancreas. Negative for ascites. 10.5 cm RIGHT kidney is unremarkable. IMPRESSION: Negative RIGHT upper quadrant ultrasound. Negative for gallbladder pathology, biliary dilatation, or peripancreatic inflammatory change.
--- NOTE | 2017-06-28 12:56 | ED ---
Nausea/Vomiting/Diarrhea HPI - HPI Summary HPI Summary: Patient is an otherwise healthy 26-year-old male with a long history of probable cyclic vomiting syndrome who presents for the second time in 3 days for persistent vomiting not well controlled with his at home Reglan. He has been seen by his primary and GI physician in the past with an endoscopy, abdominal x-ray, CT abdomen and pelvis without any findings. As of date, there has not been an ultrasound performed. Last visit 2 days ago his a LT was slightly elevated at 84. Lipase 134. Never been diagnosed with pancreatitis. Drinks occasionally, moderate to heavy marijuana use, moderate tobacco smoker. Takes no medications for any reason until cyclic vomiting returns. He has taken Zofran in the past without relief. Ativan and morphine in the ED usually with relief, however when discharged home, vomiting begins again. He denies any recent illness, fevers, sweats, chills. Mother at bedside. - History of Current Complaint Chief Complaint: EDAbdPain Stated Complaint: N/V SINCE 06/26 Time Seen by Provider: 06/28/17 10:13 Hx Obtained From: Patient Onset/Duration: Sudden Onset Timing: Constant Severity Initially: Moderate Severity Currently: Moderate Pain Intensity: 8 Pain Scale Used: 0-10 Numeric Location: Discrete At: LUQ, Epigastric Character: Burning Aggravating Factor(s): Nothing Alleviating Factor(s): Vomiting Vomiting Frequency: Every 15-60 minutes Nausea/Vomiting Duration: 24-36 hours Vomiting Characteristics: Retching, Bilious Diarrhea Presence: No - Risk Factors Influenza Risk Factors: Negative Surgical Obstruction Risk Factor(s): Bilious Emesis - Allergies/Home Medications Allergies/Adverse Reactions: Allergies Allergy/AdvReac Type Severity Reaction Status Date / Time No Known Allergies Allergy Verified 06/28/17 09:44 PMH/Surg Hx/FS Hx/Imm Hx Previously Healthy: Yes Endocrine/Hematology History: Denies: Hx Diabetes, Hx Thyroid Disease Cardiovascular History: Denies: Hx Congestive Heart Failure, Hx Hypertension Respiratory History: Reports: Hx Asthma Denies: Hx Chronic Obstructive Pulmonary Disease (COPD) GI History: Reports: Other GI Disorders - cyclical vomiting and abdominal migraines Denies: Hx Ulcer History: Denies: Hx Renal Disease Musculoskeletal History: Denies: Hx Arthritis, Hx Osteoporosis Sensory History: Denies: Hx Cataracts, Hx Contacts or Glasses, Hx Glaucoma, Hx Hearing Aid Opthamlomology History: Denies: Hx Cataracts, Hx Contacts or Glasses, Hx Glaucoma Psychiatric History: Reports: Hx Attention Deficit Hyperactivity Disorder - Immunization History Hx Pertussis Vaccination: No Immunizations Up to Date: Unable to Obtain/Confirm Infectious Disease History: No Infectious Disease History: Denies: Hx Hepatitis, Hx Human Immunodeficiency Virus (HIV), Traveled Outside the [place] in Last 30 Days - Family History Known Family History: Positive: Unknown Family History: Pt is adopted. - Social History Occupation: Unemployed Lives: With Family Alcohol Use: Occasionally Alcohol Amount: "a few drinks once or twice a month" Hx Substance Use: Yes Substance Use Type: Reports: Marijuana, Sedatives Substance Use Comment - Amount & Last Used: pt tested positive for barbiturate Hx Tobacco Use: Yes Smoking Status (MU): Light Every Day Tobacco Smoker Type: Cigarettes Amount Used/How Often: a couple per day Review of Systems - ROS Summary Review of Systems Summary: Constitutional: The patient denies fever, PARISI, sweats or chills. HEENT: Head: The patient denies headaches or dizziness. Eyes: The patient denies diplopia, blurry vision, eye pain, eye discharge, photophobia. Throat: The patient denies sore throats or hoarseness. Cardiovascular: The patient denies chest pain, palpitations, syncope, night cramps, or orthostasis. Respiratory: The patient denies cough, sputum production, hemoptysis, dyspnea, wheezing. Gastrointestinal: The patient denies odynophagia, dysphagia, hematemesis, melenemesis. Endorses epigastric abdominal pain, nausea, vomiting. Denies constipation or diarrhea. Genitourinary: Patient denies dysuria, hematuria, or pyuria. Patient denies back pain. Denies vaginal discharge, vaginal bleeding. Denies other urinary symptoms. Endocrine: The patient denies polydipsia, polyuria, or polyphagia. Muscles: The patient denies myalgia, strain or weakness. Joints: The patient denies arthralgia and/or arthritis. Neurologic: The patient denies headache, loss of consciousness, or seizure. Constitutional: Negative Negative: Fever, Chills, Fatigue, Skin Diaphoresis Eyes: Negative ENT: Negative Cardiovascular: Negative Respiratory: Negative Positive: Abdominal Pain, Vomiting, Nausea Genitourinary: Negative Positive: no symptoms reported, see HPI Musculoskeletal: Negative Psychological: Normal All Other Systems Reviewed And Are Negative: Yes Physical Exam - Summary Physical Exam Summary: Appearance: WDW, comfortable, pleasant, alert Skin: Soft dry skin, no lesions. Nailbeds pink with no cyanosis or clubbing. No petechia noted. Eyes: PAOLO, EOMI, Conjunctiva pink with no redness or exudates. Mouth: Dentition without lesions. Moist mucosa Neck: Full range of motion. Palpable thyroid. Trachea at midline. No lymphadenopathy. Pulm: Chest symmetrical expansion. No deformities on posterior chest wall. Lungs clear to auscultation and percussion, without adventitious sounds. CV: No JVD. No deformities on anterior chest wall. Heart sounds. RRR. Normal S1 and single S2. No S3, S4, rubs, or murmurs. Carotids 2+ bilaterally without bruits. . exam not performed GI: Bowel sounds WNL in all 4 quadrants. Pain on light palpation to the left upper quadrant and epigastrically. Negative Ybarra's. Psoas and obturator not performed. No pain at McBurney's point. Musculoskeletal: Flexion and extension of neck without limitations. ROM WNL in all extremities. No deformities noted. Pulses +2 bilaterally. Neuro: Motor strength is 5/5 in upper and lower extremities bilaterally. A&OX3 Psych: Logical, coherent Triage Information Reviewed: Yes Vital Signs On Initial Exam: Initial Vitals Temp Pulse Resp BP Pulse Ox 98.6 F 82 16 156/84 100 06/28/17 09:44 06/28/17 09:44 06/28/17 09:44 06/28/17 09:44 06/28/17 09:44 Vital Signs Reviewed: Yes Appearance: Positive: Well-Appearing, Well-Nourished Skin: Positive: Warm, Skin Color Reflects Adequate Perfusion Head/Face: Positive: Normal Head/Face Inspection Eyes: Positive: EOMI, PAOLO Neck: Positive: Supple, No Lymphadenopathy Respiratory/Lung Sounds: Positive: Clear to Auscultation, Breath Sounds Present Cardiovascular: Positive: RRR, Pulses are Symmetrical in both Upper and Lower Extremities Abdomen Description: Positive: Other: - Tenderness in the epigastric and left upper quadrant region on light palpation, no guarding present Bowel Sounds: Positive: Present Musculoskeletal: Positive: Strength/ROM Intact Neurological: Positive: Speech Normal Psychiatric: Positive: Normal AVPU Assessment: Alert Diagnostics - Vital Signs Vital Signs Temp Pulse Resp BP Pulse Ox 06/28/17 11:30 66 139/78 99 06/28/17 11:25 16 06/28/17 11:00 56 148/131 100 06/28/17 10:30 57 149/86 100 06/28/17 10:23 79 149/93 99 06/28/17 10:22 95 100 06/28/17 09:44 98.6 F 82 16 156/84 100 - Laboratory Lab Results: Lab Results 06/28/17 06/28/17 06/28/17 Range/Units 11:05 11:05 11:05 WBC 8.2 (3.5-10.8) 10^3/ul RBC 5.50 H (4.0-5.4) 10^6/ul Hgb 16.7 (14.0-18.0) g/dl Hct 49 (42-52) % MCV 88 (80-94) fL MCH 30 (27-31) pg MCHC 34 (31-36) g/dl RDW 14 (10.5-15) % Plt Count 229 (150-450) 10^3/ul MPV 8 (7.4-10.4) um3 Neut % (Auto) 69.8 (38-83) % Lymph % (Auto) 21.9 L (25-47) % Gilliam % (Auto) 7.2 (1-9) % Eos % (Auto) 0.6 (0-6) % Baso % (Auto) 0.5 (0-2) % Absolute Neuts (auto) 5.7 (1.5-7.7) 10^3/ul Absolute Lymphs (auto) 1.8 (1.0-4.8) 10^3/ul Absolute Monos (auto) 0.6 (0-0.8) 10^3/ul Absolute Eos (auto) 0 (0-0.6) 10^3/ul Absolute Basos (auto) 0 (0-0.2) 10^3/ul Absolute Nucleated RBC 0 10^3/ul Nucleated RBC % 0.1 Sodium 135 (133-145) mmol/L Potassium 3.7 (3.5-5.0) mmol/L Chloride 100 L (101-111) mmol/L Carbon Dioxide 26 (22-32) mmol/L Anion Gap 9 (2-11) mmol/L BUN 15 (6-24) mg/dL Creatinine 0.95 (0.67-1.17) mg/dL Est GFR ( Amer) 125.3 (>60) Est GFR (Non-Af Amer) 97.4 (>60) BUN/Creatinine Ratio 15.8 (8-20) Glucose 125 H (70-100) mg/dL Lactic Acid 1.4 (0.5-2.0) mmol/L Calcium 9.8 (8.6-10.3) mg/dL Magnesium 2.1 (1.9-2.7) mg/dL Total Bilirubin 1.70 H (0.2-1.0) mg/dL AST 20 (13-39) U/L ALT 50 (7-52) U/L Alkaline Phosphatase 64 (34-104) U/L C-Reactive Protein 1.28 (< 5.00) mg/L Total Protein 7.2 (6.4-8.9) g/dL Albumin 4.7 (3.2-5.2) g/dL Globulin 2.5 (2-4) g/dL Albumin/Globulin Ratio 1.9 (1-3) Amylase 48 (29-103) U/L Lipase 24 (11.0-82.0) U/L Result Diagrams: 06/28/17 11:05 06/28/17 11:05 Lab Statement: Any lab studies that have been ordered have been reviewed, and results considered in the medical decision making process. Naus/Vom/Diarrhea Course/Dx - Course Course Of Treatment: During the course of treatment, patient is evaluated for left upper quadrant and epigastric pain associated with nausea and vomiting 3 days. He has been diagnosed on multiple occasions for cyclical vomiting syndrome. At home Zofran and Ativan without relief. On last visit his a LFT is noted to be elevated at 84 and lipase at 134, however ultrasound of the gallbladder was not performed. Today his bilirubin is 1.70, lipase at 24 and a ALT is within normal range at 50. I decided to obtain an ultrasound of the gallbladder to assess for pancreatitis symptoms and elevated LFTs. I have also obtained an abdomen/KUB to assess for a localized ileus of the small intestine and a colon cutoff sign to assess for functional spasm of the colon secondary to pancreatic inflammation. Impression: No abdominal pelvic pathologic process evident. Small amount of stool at the hepatic flexure of the colon. Unremarkable bowel gas pattern. Ultrasound gallbladder impression: Negative right upper quadrant ultrasound. Negative for gallbladder pathology, biliary dilatation, or. Pancreatic inflammatory change. I have discussed at length with patient and mother that I believe this to be cyclic vomiting as labs are unremarkable as well as imaging. I have encouraged a trial of decreased or cessation of marijuana use to assess the benefits, however I am unable to prove a direct correlation between cyclic vomiting and marijuana use. During the course of treatment he is given morphine and Ativan with relief of all symptoms. 2 L normal saline given. He is resting comfortably. As prescription , he is given Ativan by mouth liquid and Zofran for relief. Reglan at home. He is to take Zofran for at least one day every 6 hours to prevent a possible vagal stimulation causing the cyclic vomiting. At first onset of symptoms, he is to take by mouth liquid Ativan. And is able to supplement with Reglan if no improvement. He is okay with this plan and will be discharged back into the care of his PCP and GI physician. - Differential Dx/Diagnosis Provider Diagnoses: Cyclic vomiting syndrome Is Visit Related: No Condition At Discharge: Stable Discharge - Discharge Plan Condition: Stable Disposition: HOME Prescriptions: Lorazepam INTESNOL CONC.(NF) [Lorazepam Intensol (NF)] 2 mg PO Q6H #30 ml MDD 8 Ondansetron ODT TAB* [Zofran 4 MG Odt TAB*] 4 mg PO Q6H PRN #12 tab.odt MDD 4 PRN Reason: Nausea Patient Education Materials: Cyclic Vomiting Syndrome (ED) Referrals: Ant Lopes MD [Primary Care Provider] - Additional Instructions: Please follow-up with GI Please follow-up with your PCP as scheduled on Friday Take Ativan at first onset of any nausea May take Zofran up to 4 times a day as preventative Drink plenty of fluids Rest
[2017-06-28] MEDS ORDERED: Ondansetron ODT TAB* 4 MG SL ONE (13:43)
[2017-06-28 15:02] VITALS: BP 132/67
== END 2017-06-28 15:09 | disposition home or self-care (01) ==
LOC: ED 09:41
DX: G43.A0 Cyclical vomiting, in migraine, not intractable (principal); F17.210 Nicotine dependence, cigarettes, uncomplicated
CPT/HCPCS: 36415; 74018; 76705; 80053; 82150; 83605; 83690; 83735; 85025; 86140; 96361; 96374; 96375; 96376; 99284; A9270-GY; J2060; J2270

== ENCOUNTER 2017-07-01 15:22 | Emergency (ER) | payer BC ==
[2017-07-01 17:27] VITALS: BP 121/70
[2017-07-01] MEDS ORDERED: Lidocaine 1% MPF* 2 ML VIAL INJ ONE (18:03)
--- NOTE | 2017-07-01 18:05 | UC ---
Ear Complaint HPI - HPI Summary HPI Summary: Pt presents with left ear pain since yesterday. He tells me that he was seen yesterday by someone at [place] and dx'd with otitis externa and given cipro HC ear drops and told to follow up if needed. He is here today with continued pain. Denies fever, chills, drainage, or decreased hearing. - History of Current Complaint Chief Complaint: UCEar Stated Complaint: EAR PAIN Time Seen by Provider: 07/01/17 17:53 Hx Obtained From: Patient Onset/Duration: Gradual Onset Severity Initially: Moderate Severity Currently: Moderate Pain Intensity: 6 Pain Scale Used: 0-10 Numeric - Allergies/Home Medications Allergies/Adverse Reactions: Allergies Allergy/AdvReac Type Severity Reaction Status Date / Time No Known Allergies Allergy Verified 07/01/17 17:27 Home Medications: Home Medications Ciprofloxacin 0.3% OPTH.JAMES* [Cipro 0.3% Opth*] 1 drop BOTH EARS QID 07/01/17 [ History Confirmed 07/01/17] PMH/Surg Hx/FS Hx/Imm Hx Respiratory History: Asthma GI/ History: Gastroesophageal Reflux - Surgical History Surgical History: None - Family History Known Family History: Positive: Unknown Family History: Pt is adopted. - Social History Alcohol Use: Occasionally Alcohol Amount: "a few drinks once or twice a month" Substance Use Type: Marijuana, Sedatives Substance Use Comment - Amount & Last Used: pt tested positive for barbiturate Smoking Status (MU): Light Every Day Tobacco Smoker Type: Cigarettes Amount Used/How Often: a couple per day - Immunization History Most Recent Influenza Vaccination: 2012 Most Recent Tetanus Shot: unknown Most Recent Pneumonia Vaccination: never Review of Systems Constitutional: Negative Skin: Negative Eyes: Negative ENT: Ear Ache Respiratory: Negative Cardiovascular: Negative Gastrointestinal: Negative Neurological: Negative Psychological: Negative All Other Systems Reviewed And Are Negative: Yes Physical Exam Triage Information Reviewed: Yes Appearance: Well-Appearing, No Pain Distress, Well-Nourished Vital Signs: Initial Vital Signs Temp 98.2 F 07/01/17 17:23 Pulse 96 07/01/17 17:23 Resp 16 07/01/17 17:23 BP 121/70 07/01/17 17:23 Pulse Ox 100 07/01/17 17:23 Vital Signs Reviewed: Yes Eyes: Positive: Conjunctiva Clear. Negative: Conjunctiva Inflamed, Discharge ENT: Positive: Hearing grossly normal, Pharynx normal, TMs normal, Uvula midline , Other - Left ear canal with mild edema and white/yellow purulent material. No tragus or auricular pain. No mandibular pain.. Negative: Pharyngeal erythema, Nasal congestion, Nasal drainage, TM bulging, TM dull, TM red, Tonsillar swelling, Tonsillar exudate, Hoarse voice, Sinus tenderness Neck: Positive: Supple, Nontender, No Lymphadenopathy Respiratory: Positive: Lungs clear, Normal breath sounds, No respiratory distress, No accessory muscle use Cardiovascular: Positive: RRR, No Murmur, Pulses Normal Neurological: Positive: Alert Psychological: Positive: Age Appropriate Behavior Skin: Negative: rashes Ear Complaint Course/Dx - Course Course Of Treatment: Left ear otitis externa currently being treated. Advised to continue treatment and try OTC Ran drops for pain. 3 drops of 1% lidocaine instilled into left ear at visit today. - Differential Dx/Diagnosis Provider Diagnoses: Left ear pain Discharge - Discharge Plan Condition: Stable Disposition: HOME Patient Education Materials: Otitis Externa (DC) Referrals: Ant Lopes MD [Primary Care Provider] - Additional Instructions: If you develop a fever, shortness of breath, chest pain, new or worsening symptoms - please call your PCP or go to the ED. 1) Continue with antibiotic ear drops as instructed 2) May try over the counter RAN'S earache drops for pain relief
== END 2017-07-01 18:20 | disposition home or self-care (01) ==
LOC: UCEAST 15:22
DX: H92.02 Otalgia, left ear (principal); J45.909 Unspecified asthma, uncomplicated; K21.9 Gastro-esophageal reflux disease without esophagitis; F17.210 Nicotine dependence, cigarettes, uncomplicated
CPT/HCPCS: 99211; G0463

== ENCOUNTER 2017-07-03 12:42 | Emergency (ER) | payer BC ==
[2017-07-03 14:16] LABS: ABS Basophils 0 10^3/ul (0-0.2); ABS Eosinophils 0 10^3/ul (0-0.6); ABS Lymphocytes 1.2 10^3/ul (1.0-4.8); ABS Monocytes 0.6 10^3/ul (0-0.8); ABS Neutrophils 6.9 10^3/ul (1.5-7.7); ABS Nucleated RBC 0 10^3/ul; Eosinophil % 0.3 % (0-6); Hematocrit 47 % (42-52); Hemoglobin 15.9 g/dl (14.0-18.0); Lymphocyte % 13.8 % (25-47); Mean Corpuscular HGB Conc 34 g/dl (31-36); Mean Corpuscular Hemoglobin 30 pg (27-31); Mean Corpuscular Volume 88 fL (80-94); Mean Platelet Volume 9 um3 (7.4-10.4); Nucleated Red Blood Cells % 0; Platelet Count 258 10^3/ul (150-450); Red Blood Count 5.32 10^6/ul (4.0-5.4); Red Cell Distribution Width 13 % (10.5-15); White Blood Count 8.8 10^3/ul (3.5-10.8)
[2017-07-03 14:53] LABS: EGFR Non-African American 103.7 (>60)
[2017-07-03] MEDS: NS 0.9% 1000 ML* 1,000 ML IV ONE (15:26)
[2017-07-03] MEDS: Metoclopramide IV* 5 MG/ML 2 ML VIAL IV ONE (15:37)
[2017-07-03] MEDS: HYDROmorphone INJ* 1 MG/ML CARPUJECT SYRINGE IV ONE (15:38)
[2017-07-03] MEDS: LORazepam INJ* 2 MG/ML 1 ML VIAL IV ONE (15:41)
[2017-07-03 18:57] VITALS: BP 129/69
--- NOTE | 2017-07-03 21:37 | ED ---
Gamal Marino Jennifer, scribed for Matteo Jc MD on 07/03/17 at 1501 . Abdominal Pain/Male - HPI Summary HPI Summary: The patient is a 26 year old male who returns to the ED for nausea and vomiting with abdominal pain today. He had a previous endoscopy, which showed negative results, but the symptoms have been worsening. His mother reports the patient has eaten only two-three meals in seven days. - History of Current Complaint Chief Complaint: EDAbdPain Stated Complaint: N/V/ABD PAIN Time Seen by Provider: 07/03/17 14:44 Hx Obtained From: Family/Packaging Inspector - Mother Onset/Duration: Sudden Onset, Still Present, Worse Since Timing: Constant Severity Initially: Moderate Severity Currently: Moderate Pain Intensity: 8 Pain Scale Used: 0-10 Numeric Aggravating Factor(s): Nothing Alleviating Factor(s): Nothing Associated Signs And Symptoms: Positive: Nausea, Vomiting - Allergies/Home Medications Allergies/Adverse Reactions: Allergies Allergy/AdvReac Type Severity Reaction Status Date / Time No Known Allergies Allergy Verified 07/01/17 17:27 PMH/Surg Hx/FS Hx/Imm Hx Endocrine/Hematology History: Denies: Hx Diabetes, Hx Thyroid Disease Cardiovascular History: Denies: Hx Congestive Heart Failure, Hx Hypertension Respiratory History: Reports: Hx Asthma Denies: Hx Chronic Obstructive Pulmonary Disease (COPD) GI History: Reports: Other GI Disorders - cyclical vomiting and abdominal migraines Denies: Hx Ulcer History: Denies: Hx Renal Disease Musculoskeletal History: Denies: Hx Arthritis, Hx Osteoporosis Sensory History: Denies: Hx Cataracts, Hx Contacts or Glasses, Hx Glaucoma, Hx Hearing Aid Opthamlomology History: Denies: Hx Cataracts, Hx Contacts or Glasses, Hx Glaucoma Psychiatric History: Reports: Hx Attention Deficit Hyperactivity Disorder Infectious Disease History: No Infectious Disease History: Denies: Hx Hepatitis, Hx Human Immunodeficiency Virus (HIV), Traveled Outside the [place] in Last 30 Days - Family History Known Family History: Positive: Unknown - Pt is adopted Family History: Pt is adopted. - Social History Alcohol Use: Occasionally Alcohol Amount: "a few drinks once or twice a month" Hx Substance Use: Yes Substance Use Type: Reports: Marijuana, Sedatives Substance Use Comment - Amount & Last Used: pt tested positive for barbiturate Hx Tobacco Use: Yes Smoking Status (MU): Light Every Day Tobacco Smoker Type: Cigarettes Amount Used/How Often: a couple per day Review of Systems Negative: Fever Positive: Abdominal Pain, Vomiting, Nausea All Other Systems Reviewed And Are Negative: Yes Physical Exam - Summary Physical Exam Summary: Appearance: The patient is in moderate distress. Skin: The skin is warm and dry and skin color reflects adequate perfusion. HEENT: ~The head is normocephalic and atraumatic. The pupils are equal and reactive. The conjunctivae are clear and without drainage. ~Nares are patent and without drainage. ~Mouth reveals moist mucous membranes and the throat is without erythema and exudate. ~The external ears are intact. The ear canals are patent and without drainage. The tympanic membranes are intact. Neck: the neck is supple with full range of motion and non-tender. There are no carotid bruits. ~There is no neck vein distension. Respiratory: Chest is non-tender. ~Lungs are clear to auscultation and breath sounds are symmetrical and equal. Cardiovascular: Heart is regular rate and rhythm. ~There is no murmur or rub auscultated. ~~There is no peripheral edema and pulses are symmetrical and equal. Abdomen: The abdomen is soft and non-tender. ~There are normal bowel sounds heard in all four quadrants and there is no organomegaly palpated. Musculoskeletal: There is no back tenderness noted. ~Extremities are non-tender with full range of motion. ~There is good capillary refill. ~There is no peripheral edema or calf tenderness elicited. Neurological: Patient is alert and oriented to person, place and time. ~The patient has symmetrical motor strength in all four extremities. ~Cranial nerves are grossly intact. Deep tendon reflexes are symmetrical and equal in all four extremities. Psychiatric: The patient has an appropriate affect and does not exhibit any anxiety or depression. Triage Information Reviewed: Yes Vital Signs On Initial Exam: Initial Vitals Temp Pulse Resp BP Pulse Ox 96.9 F 104 17 145/73 100 07/03/17 12:45 07/03/17 12:45 07/03/17 12:45 07/03/17 12:45 07/03/17 12:45 Vital Signs Reviewed: Yes Diagnostics - Vital Signs Vital Signs Temp Pulse Resp BP Pulse Ox 07/03/17 13:57 98.8 F 67 20 150/82 100 07/03/17 12:45 96.9 F 104 17 145/73 100 - Laboratory Lab Results: Lab Results 07/03/17 07/03/17 07/03/17 Range/Units 14:03 14:03 14:03 WBC 8.8 (3.5-10.8) 10^3/ul RBC 5.32 (4.0-5.4) 10^6/ul Hgb 15.9 (14.0-18.0) g/dl Hct 47 (42-52) % MCV 88 (80-94) fL MCH 30 (27-31) pg MCHC 34 (31-36) g/dl RDW 13 (10.5-15) % Plt Count 258 (150-450) 10^3/ul MPV 9 (7.4-10.4) um3 Neut % (Auto) 78.4 (38-83) % Lymph % (Auto) 13.8 L (25-47) % [place] % (Auto) 7.1 (1-9) % Eos % (Auto) 0.3 (0-6) % Baso % (Auto) 0.4 (0-2) % Absolute Neuts (auto) 6.9 (1.5-7.7) 10^3/ul Absolute Lymphs (auto) 1.2 (1.0-4.8) 10^3/ul Absolute Monos (auto) 0.6 (0-0.8) 10^3/ul Absolute Eos (auto) 0 (0-0.6) 10^3/ul Absolute Basos (auto) 0 (0-0.2) 10^3/ul Absolute Nucleated RBC 0 10^3/ul Nucleated RBC % 0 Sodium 137 (133-145) mmol/L Potassium 4.0 (3.5-5.0) mmol/L Chloride 102 (101-111) mmol/L Carbon Dioxide 27 (22-32) mmol/L Anion Gap 8 (2-11) mmol/L BUN 11 (6-24) mg/dL Creatinine 0.90 (0.67-1.17) mg/dL Est GFR ( Amer) 133.3 (>60) Est GFR (Non-Af Amer) 103.7 (>60) BUN/Creatinine Ratio 12.2 (8-20) Glucose 126 H (70-100) mg/dL Lactic Acid 1.5 (0.5-2.0) mmol/L Calcium 10.1 (8.6-10.3) mg/dL Total Bilirubin 0.70 (0.2-1.0) mg/dL AST 16 (13-39) U/L ALT 35 (7-52) U/L Alkaline Phosphatase 66 (34-104) U/L Total Protein 7.5 (6.4-8.9) g/dL Albumin 4.5 (3.2-5.2) g/dL Globulin 3.0 (2-4) g/dL Albumin/Globulin Ratio 1.5 (1-3) Result Diagrams: 07/03/17 14:03 07/03/17 14:03 Lab Statement: Any lab studies that have been ordered have been reviewed, and results considered in the medical decision making process. Abdominal Pain Fem Course/Dx - Course Course Of Treatment: Mr. Chester presented again with his symptoms of cyclic vomiting syndrome. His labs were OK and he was treated symptomatically with good improvement. He has a referral to [facility] to see if they can add anything to his plight. - Diagnoses Provider Diagnoses: Cyclic vomiting syndrome Discharge - Discharge Plan Condition: Stable Disposition: HOME Patient Education Materials: Cyclic Vomiting Syndrome (ED) Referrals: Ant Lopes MD [Primary Care Provider] - 3 Days Additional Instructions: Follow up with your primary care physician in three days. Return to the emergency department for any new or worsening symptoms. The documentation as recorded by the Gamal lerner Jennifer accurately reflects the service I personally performed and the decisions made by , Matteo Jc MD.
== END 2017-07-03 18:55 | disposition home or self-care (01) ==
LOC: ED 12:42
DX: G43.A0 Cyclical vomiting, in migraine, not intractable (principal); F17.210 Nicotine dependence, cigarettes, uncomplicated
CPT/HCPCS: 36415; 80053; 83605; 85025; 96361; 96374; 96375; 99282; J1170; J2060; J2765

== ENCOUNTER 2018-01-30 18:01 | Emergency (ER) | payer BC ==
[2018-01-30 18:09] VITALS: BP 129/75
[2018-01-30] MEDS ORDERED: Albuterol 2.5 MG/3 ML NEB.SOL* (0.083%) INH ONE (18:19)
--- NOTE | 2018-01-30 18:19 | UC ---
Respiratory Complaint HPI - HPI Summary HPI Summary: Pt is a 27 y/o M c/o productive cough lasting for ~1 week. Patient reports pain described as CP and is located in his central chest. Assoc. Sx: Productive cough (blood in sputum), Sore throat, CP, wheezing. Denies: fever, chills, SOB. Patient reports that nothing makes his symptoms better or worse. - History of Current Complaint Chief Complaint: UCRespiratory Stated Complaint: COUGH Time Seen by Provider: 01/30/18 18:12 Hx Obtained From: Patient Onset/Duration: Gradual Onset, Lasting Weeks, Still Present Timing: Constant Severity Currently: None Pain Intensity: 0 Pain Scale Used: 0-10 Numeric Character: Cough: Productive, Sputum Description: - "blood in sputum" Aggravating Factors: Nothing Alleviating Factors: Nothing Associated Signs And Symptoms: Positive: Wheezing. Negative: Fever, Chills - Allergies/Home Medications Allergies/Adverse Reactions: Allergies Allergy/AdvReac Type Severity Reaction Status Date / Time No Known Allergies Allergy Verified 01/30/18 18:09 PMH/Surg Hx/FS Hx/Imm Hx Endocrine History: Other Other Endocrine History: NEG: DM Cardiovascular History: Other Other Cardiovascular History: NEG: CAD, HTN Respiratory History: Asthma - Surgical History Surgical History: None - Family History Known Family History: Positive: Unknown - pt is adopted Family History: Pt is adopted. - Social History Occupation: Employed Full-time Lives: With Family Alcohol Use: Occasionally Alcohol Amount: "a few drinks once or twice a month" Substance Use Type: Marijuana, Sedatives Substance Use Comment - Amount & Last Used: occasionally Smoking Status (MU): Light Every Day Tobacco Smoker Type: Cigarettes Amount Used/How Often: a couple per day - Immunization History Most Recent Influenza Vaccination: 2012 Most Recent Tetanus Shot: unknown Most Recent Pneumonia Vaccination: never Review of Systems Constitutional: Other - NEG: fever, chills ENT: Sore Throat Respiratory: Cough, Other - POS: Wheezing NEG: SOB Cardiovascular: Chest Pain All Other Systems Reviewed And Are Negative: Yes Physical Exam - Summary Physical Exam Summary: Appearance: Well-appearing, Well-nourished Skin: Warm, Dry, No rash Eyes: Normal, PERRL, EOMI, sclera anicteric ENT: Normal, No lymphadenopathy Neck: Supple, nontender Respiratory: Bilateral expiratory wheezes. Cardiovascular: S1, S2, no murmur, no rub, no gallop Abdomen: Soft, nontender, no organomegaly Bowel sounds: Present Musculoskeletal: Normal, Strength/ROM Intact, no edema, pulses symmetrical Neurological: Normal, A&Ox3, cranial nerves II-XII WNL, follows commands, gait not tested, sensation intact to pin and light touch Psychiatric: affect normal, behavior appropriate, dressed appropriately, judgment intact Triage Information Reviewed: Yes Vital Signs: Initial Vital Signs Temp 98.9 F 01/30/18 18:04 Pulse 80 01/30/18 18:04 Resp 16 01/30/18 18:04 BP 129/75 01/30/18 18:04 Pulse Ox 100 01/30/18 18:04 Vital Signs Reviewed: Yes UC Diagnostic Evaluation - Laboratory O2 Sat by Pulse Oximetry: 100 - Radiology Xray Interpretation: No Acute Changes - IMPRESSION: Hyperinflation; no infiltrates. No change from previous, 2011. Radiology Interpretation Completed By: ED Physician - ED physician reviewed this radiology report. Respiratory Course/Dx - Course Course Of Treatment: Provider saw pt in room and ordered a CXR; Results: NEG. Pt will be D/C home with a Dx of exacerbation of asthma. Discharge - Sign-Out/Discharge Documenting (check all that apply): Patient Departure All imaging exams completed and their final reports reviewed: Yes - Discharge Plan Condition: Good Disposition: HOME Prescriptions: Azithromycin TAB* [Zithromax TAB (Z-MIGUEL ANGEL) 250 mg #6 tabs] 2 tab PO .TODAY, THEN 1 DAILY #1 miguel angel Fluticasone-Salmeterol 500-50* [Advair Diskus 500-50*] 1 puff INH BID #1 diskus Montelukast Sodium TAB* [Singulair 10 MG TAB*] 10 mg PO DAILY #30 tab Patient Education Materials: Asthma (ED), Acute Bronchitis (ED), How to Use a Nebulizer (ED), Bronchospasm (ED) Referrals: Ant Lopes MD [Primary Care Provider] - 2 Days Additional Instructions: RETURN TO THE EMERGENCY DEPARTMENT FOR CHANGING OR WORSENING SYMPTOMS - Attestation Statements Document Initiated by Scribe: Yes Documenting Scribe: Twan Wilkerson Provider For Whom Scribe is Documenting (Include Credential): Robb Amaya MD. Scribe Attestation: Twan Marino, scribed for Robb Amaya MD. on 01/30/18 at 1903.
--- NOTE | 2018-01-30 18:49 | RAD ---
INDICATION: Cough and wheezing. COMPARISON: Comparison is made with a prior chest x-ray study from April 06, 2012. TECHNIQUE: Dual-energy PA and lateral views of the chest were obtained. FINDINGS: The heart is within normal limits in size. Mediastinal and hilar contours appear within normal limits. The lungs are hyperinflated and clear. No pleural effusion is seen. IMPRESSION: NO EVIDENCE FOR ACTIVE CARDIOPULMONARY DISEASE. R0
== END 2018-01-30 19:15 | disposition home or self-care (01) ==
LOC: UCEAST 18:01
DX: J45.901 Unspecified asthma with (acute) exacerbation (principal); F17.210 Nicotine dependence, cigarettes, uncomplicated
CPT/HCPCS: 71046; 99212; G0463

== ENCOUNTER 2018-04-13 02:34 | Emergency (ER) | payer BC ==
--- NOTE | 2018-04-13 02:46 | ED ---
Abdominal Pain/Male - HPI Summary HPI Summary: The pt is a 27 y/o male presenting to [facility] accompanied by his mother c/o acute on chronic abd pain worsened at 21:00 hrs yesterday night. He notes nausea, vomiting, weakness and chills. The pain is rated 8/10 in severity. He reports similar sx in June 2017. His caregiver reports that Zofran is ineffective against the sx. As per the nurse's notes, the mother reports that the pt has been taking Ativan but recently ran out of them. He also took Xanax before coming to the ED. Home Medications Medication Instructions Recorded Confirmed Type Albuterol inh POWDER (NF) [Proair 1 puff INH Q6HR PRN 11/04/16 07/03/17 History Respiclick] Lorazepam INTESNOL CONC.(NF) 2 mg PO Q6H #30 ml MDD 8 06/28/17 07/03/17 Rx [Lorazepam Intensol (NF)] Azithromycin TAB* [Zithromax TAB 2 tab PO .TODAY, THEN 1 DAILY #1 01/30/18 Rx (Z-MIGUEL ANGEL) 250 mg #6 tabs] miguel angel Fluticasone-Salmeterol 500-50* 1 puff INH BID #1 diskus 01/30/18 Rx [Advair Diskus 500-50*] Montelukast Sodium TAB* [Singulair 10 mg PO DAILY #30 tab 01/30/18 Rx 10 MG TAB*] - History of Current Complaint Chief Complaint: EDAbdPain Stated Complaint: VOMITNIG AND WEAKNESS Hx Obtained From: Patient, Family/Aviation Safety Inspector Onset/Duration: Still Present, Worse Since - 21:00 hrs yesterday Severity Initially: Severe Severity Currently: Severe Pain Intensity: 8 Pain Scale Used: 0-10 Numeric Associated Signs And Symptoms: Positive: Nausea, Vomiting - Allergies/Home Medications Allergies/Adverse Reactions: Allergies Allergy/AdvReac Type Severity Reaction Status Date / Time No Known Allergies Allergy Verified 04/13/18 02:41 PMH/Surg Hx/FS Hx/Imm Hx Previously Healthy: No Endocrine/Hematology History: Denies: Hx Diabetes, Hx Thyroid Disease Cardiovascular History: Denies: Hx Congestive Heart Failure, Hx Hypertension Respiratory History: Reports: Hx Asthma Denies: Hx Chronic Obstructive Pulmonary Disease (COPD) GI History: Reports: Other GI Disorders - cyclical vomiting and abdominal migraines Denies: Hx Ulcer History: Denies: Hx Renal Disease Musculoskeletal History: Denies: Hx Arthritis, Hx Osteoporosis Sensory History: Denies: Hx Cataracts, Hx Contacts or Glasses, Hx Glaucoma, Hx Hearing Aid Opthamlomology History: Denies: Hx Cataracts, Hx Contacts or Glasses, Hx Glaucoma Psychiatric History: Reports: Hx Attention Deficit Hyperactivity Disorder - Cancer History Cancer Type, Location and Year: None reported - Surgical History Surgery Procedure, Year, and Place: None reported Infectious Disease History: No Infectious Disease History: Denies: Hx Hepatitis, Hx Human Immunodeficiency Virus (HIV), Traveled Outside the [place] in Last 30 Days - Family History Known Family History: Positive: Unknown - pt is adopted - Social History Occupation: Employed Full-time Lives: With Family Alcohol Use: Occasionally Alcohol Amount: "a few drinks once or twice a month" Hx Substance Use: Yes Substance Use Type: Reports: Marijuana, Sedatives Substance Use Comment - Amount & Last Used: occasionally Hx Tobacco Use: Yes Smoking Status (MU): Light Every Day Tobacco Smoker Type: Cigarettes Amount Used/How Often: a couple per day Review of Systems Positive: Chills Positive: Abdominal Pain, Vomiting, Nausea Positive: Weakness All Other Systems Reviewed And Are Negative: Yes Physical Exam - Summary Physical Exam Summary: Appearance: Well-appearing, Well-nourished, lying in bed comfortable Skin: Warm, dry, no obvious rash Eyes: sclera anicteric, no conjunctival pallor ENT: mucous membranes moist Neck: deferred Respiratory: No signs of respiratory distress Cardiovascular: Appears well perfused, pulses are nml Abdomen: deferred Musculoskeletal: Moving all 4 extremities without obvious discomfort Neurological: Awake and alert, mentation is normal, speech is fluent and appropriate Psychiatric: affect is normal, does not appear anxious or depressed Triage Information Reviewed: Yes Vital Signs On Initial Exam: Initial Vitals Temp Pulse Resp BP Pulse Ox 96.7 F 61 20 110/88 100 04/13/18 02:40 04/13/18 02:40 04/13/18 02:40 04/13/18 02:40 04/13/18 02:40 Vital Signs Reviewed: Yes Diagnostics - Vital Signs Vital Signs Temp Pulse Resp BP Pulse Ox 04/13/18 02:40 96.7 F 61 20 110/88 100 - Laboratory Lab Statement: Any lab studies that have been ordered have been reviewed, and results considered in the medical decision making process. Abdominal Pain Fem Course/Dx - Course Course Of Treatment: A 27 year-old M with a PMHx of cyclic emesis presents to the ED with a CC of acute on chronic abd pain worsened at 21:00 hrs one day ago. He notes nausea, vomiting, weakness and chills. A physical exam is unremarkable. In the ED course, pt was given Lorzepam 1 mg IV, Metoclopramide 10 mg IV and N.s 0.9 % 2000 ml which improved the symptoms. Patient will be discharged with a final Dx of cyclic vomiting syndrome. Pt is agreeable with this plan. Allergies noted. - Diagnoses Provider Diagnoses: Cyclic vomiting syndrome Discharge - Sign-Out/Discharge Documenting (check all that apply): Patient Departure - DC - Discharge Plan Condition: Improved Disposition: HOME Prescriptions: Metoclopramide TAB* [Reglan TAB*] 10 mg PO Q6H PRN #20 tab PRN Reason: Nausea Patient Education Materials: Cyclic Vomiting Syndrome (ED) Referrals: Ant Lopes MD [Primary Care Provider] - - Attestation Statements Document Initiated by Scribe: Yes Documenting Scribe: Sharyn Shea Provider For Whom Scribe is Documenting (Include Credential): Dr. Matteo Muro MD Scribe Attestation: Sharyn Marino scribed for Dr. Matteo Muro MD on 04/13/18 at 0554.
[2018-04-13] MEDS ORDERED: LORazepam INJ* 2 MG/ML 1 ML VIAL IV PUSH ONE (03:07)
[2018-04-13] MEDS ORDERED: Metoclopramide IV* 5 MG/ML 2 ML VIAL IV ONE (03:07)
[2018-04-13] MEDS: NS 0.9% 1000 ML* 2,000 ML IV ONE (03:21)
[2018-04-13 05:11] VITALS: BP 148/80
== END 2018-04-13 05:51 | disposition home or self-care (01) ==
LOC: ED 02:34
DX: G43.A0 Cyclical vomiting, in migraine, not intractable (principal); J45.909 Unspecified asthma, uncomplicated; F17.210 Nicotine dependence, cigarettes, uncomplicated
CPT/HCPCS: 96361; 96374; 96375; 99282; J2060; J2765

== ENCOUNTER 2018-04-16 13:32 | Emergency (ER) | payer BC ==
[2018-04-16] MEDS ORDERED: NS 0.9% 1000 ML* 1,000 ML IV ONE ×2 (13:48→15:42)
[2018-04-16] MEDS ORDERED: Metoclopramide IV* 5 MG/ML 2 ML VIAL IV ONE (13:48)
[2018-04-16] MEDS ORDERED: LORazepam INJ* 2 MG/ML 1 ML VIAL IV PUSH ONE ×2 (13:49→17:05)
--- NOTE | 2018-04-16 13:58 | ED ---
GI/ HPI - HPI Summary HPI Summary: This patient is a 27 year old M presenting to [facility] accompanied by his mother with a chief complaint of n/v for the last 2 days. Pt states he has cyclical vomiting syndrome/ABD migraine and the only thing that helps it is IV Reglan and Ativan. The patient rates the pain 6/10 in severity. Patient reports ABD pain. Pt has been seen in the ED for this issue 2 days ago. Although his mother states he has not had an episode since last June. He has been seen by GI many times and had multiple scans and upper endoscopies. Pt smokes marijuana daily, he was informed that this could be causing his sx, he states that has been told this before. - History of Current Complaint Chief Complaint: EDNauseaVomitDiarrh Time Seen by Provider: 04/16/18 13:42 Stated Complaint: VOMITING Hx Obtained From: Patient Onset/Duration: Started Days Ago, Still Present Timing: Constant Severity: Moderate Current Severity: Moderate Pain Intensity: 6 Location of Pain: Diffuse Associated Signs and Symptoms: Positive: Nausea, Vomiting - Additional Pertinent History Primary Care Physician: KASH - Allergy/Home Medications Allergies/Adverse Reactions: Allergies Allergy/AdvReac Type Severity Reaction Status Date / Time No Known Allergies Allergy Verified 04/16/18 13:39 Home Medications: Home Medications Amphetamine/Dextroamph ER(NF) [Adderal XR (NF)] 20 mg PO DAILY 04/16/18 [ History Confirmed 04/16/18] PMH/Surg Hx/FS Hx/Imm Hx Endocrine/Hematology History: Denies: Hx Diabetes, Hx Thyroid Disease Cardiovascular History: Denies: Hx Congestive Heart Failure, Hx Hypertension Respiratory History: Reports: Hx Asthma Denies: Hx Chronic Obstructive Pulmonary Disease (COPD) GI History: Reports: Other GI Disorders - cyclical vomiting and abdominal migraines Denies: Hx Ulcer History: Denies: Hx Renal Disease Musculoskeletal History: Denies: Hx Arthritis, Hx Osteoporosis Sensory History: Denies: Hx Cataracts, Hx Contacts or Glasses, Hx Glaucoma, Hx Hearing Aid Opthamlomology History: Denies: Hx Cataracts, Hx Contacts or Glasses, Hx Glaucoma Psychiatric History: Reports: Hx Attention Deficit Hyperactivity Disorder - Cancer History Cancer Type, Location and Year: None reported - Surgical History Surgery Procedure, Year, and Place: None reported Infectious Disease History: No Infectious Disease History: Denies: Hx Hepatitis, Hx Human Immunodeficiency Virus (HIV), Traveled Outside the [place] in Last 30 Days - Family History Known Family History: Positive: Unknown - pt is adopted Family History: Pt is adopted. - Social History Alcohol Use: Occasionally Alcohol Amount: "a few drinks once or twice a month" Hx Substance Use: Yes Substance Use Type: Reports: Marijuana, Sedatives Substance Use Comment - Amount & Last Used: occasionally Hx Tobacco Use: Yes Smoking Status (MU): Light Every Day Tobacco Smoker Type: Cigarettes Amount Used/How Often: a couple per day Review of Systems Negative: Fever Positive: Abdominal Pain, Vomiting, Nausea All Other Systems Reviewed And Are Negative: Yes Physical Exam - Summary Physical Exam Summary: GENERAL: Patient is a well-developed and nourished M who is lying comfortable in the stretcher. Patient is not in any acute respiratory distress. HEAD AND FACE: Normocephalic EYES: PERRLA, EOMI x 2. EARS: Hearing grossly intact. MOUTH: Oropharynx within normal limits. NECK: Supple, trachea is midline, no adenopathy, no JVD, no carotid bruit. CHEST: Symmetric, no tenderness at palpation LUNGS: Clear to auscultation bilaterally. No wheezing or crackles. CVS: Regular rate and rhythm, S1 and S2 present, no murmurs or gallops appreciated. ABDOMEN: Soft, TTP in the epigastrium. Negative mcburney's point. NEgatie lira 's sign. Bowel sounds are normal. No abdominal abnormal pulsations. EXTREMITIES: Full ROM in all major joints, no edema, no cyanosis or clubbing. NEURO: Alert and oriented x 3. No acute neurological deficits. Speech is normal and follows commands. SKIN: Dry and warm Triage Information Reviewed: Yes Vital Signs On Initial Exam: Initial Vitals Temp Pulse Resp BP Pulse Ox 97.6 F 53 26 146/81 100 04/16/18 13:36 04/16/18 13:36 04/16/18 13:36 04/16/18 13:36 04/16/18 13:36 Vital Signs Reviewed: Yes Diagnostics - Vital Signs Vital Signs Temp Pulse Resp BP Pulse Ox 04/16/18 13:36 97.6 F 53 26 146/81 100 - Laboratory Result Diagrams: 04/16/18 14:10 04/16/18 14:10 Lab Statement: Any lab studies that have been ordered have been reviewed, and results considered in the medical decision making process. Re-Evaluation - Re-Evaluation First Eval Re-Evaluation Time: 15:42 Change: Unchanged Comment: Pt is still vomiting. His mother left and wont be back for an hour and she is his ride home. Second Eval Re-Evaluation Time: 16:50 Change: Improved Comment: Pt has improved with medications. GIGU Course/Dx - Course Assessment/Plan: This patient is a 27 year old M presenting to [facility] accompanied by his mother with a chief complaint of n/v for the last 2 days. Dx cyclical vomiting. In the ED course the patient was given IV fluids, reglan , and Ativan. Patient will be discharged with prescription for Reglan and Benadryl and follow up from Dr. Lopes. The patient is agreeable with this plan. - Diagnoses Provider Diagnoses: Cyclical vomiting syndrome Discharge - Sign-Out/Discharge Documenting (check all that apply): Patient Departure - Discharge Plan Condition: Stable Disposition: HOME Prescriptions: diPHENhydraMINE PO* [Benadryl PO 25 MG TAB*] 25 mg PO Q6H PRN #20 tab PRN Reason: Agitation Metoclopramide TAB* [Reglan TAB*] 10 mg PO Q8H #15 tab Patient Education Materials: Cyclic Vomiting Syndrome (ED) Referrals: Ant Lopes MD [Primary Care Provider] - Additional Instructions: Follow up with your primary care physician in 1-3 days. RETURN TO THE EMERGENCY DEPARTMENT FOR CHANGING OR WORSENING SYMPTOMS. - Billing Disposition and Condition Condition: STABLE Disposition: Home - Attestation Statements Document Initiated by Scribe: Yes Documenting Scribe: Robert Snow Provider For Whom Francisco is Documenting (Include Credential): Alex Olmedo MD Scribe Attestation: Robert Marino , scribed for Alex Olmedo MD on 04/16/18 at 1843. Scribe Documentation Reviewed: Yes Provider Attestation: The documentation as recorded by the Robert lerner accurately reflects the service I personally performed and the decisions made by me, Alex Olmedo MD Status of Scribe Document: Viewed
[2018-04-16 14:36] LABS: ABS Basophils 0 10^3/ul (0-0.2); ABS Eosinophils 0.1 10^3/ul (0-0.6); ABS Monocytes 0.6 10^3/ul (0-0.8); ABS Neutrophils 5.1 10^3/ul (1.5-7.7); ABS Nucleated RBC 0 10^3/ul; Eosinophil % 1.1 %; Hematocrit 46 % (42-52); Hemoglobin 16.1 g/dl (14.0-18.0); Lymphocyte % 25.3 %; Mean Corpuscular HGB Conc 35 g/dl (31-36); Mean Corpuscular Hemoglobin 30 pg (27-31); Mean Corpuscular Volume 87 fL (80-94); Mean Platelet Volume 8.7 fL (7.4-10.4); Nucleated Red Blood Cells % 0.2; Platelet Count 224 10^3/ul (150-450); Red Blood Count 5.31 10^6/ul (4.00-5.40); Red Cell Distribution Width 14 % (10.5-15); White Blood Count 7.9 10^3/ul (3.5-10.8)
[2018-04-16] MEDS ORDERED: Ondansetron INJ* 2 MG/ML VIAL IV ONE (15:42)
[2018-04-16 17:45] VITALS: BP 148/73
== END 2018-04-16 17:43 | disposition home or self-care (01) ==
LOC: ED 13:32
DX: G43.A0 Cyclical vomiting, in migraine, not intractable (principal); F17.210 Nicotine dependence, cigarettes, uncomplicated; F90.9 Attention-deficit hyperactivity disorder, unspecified type
CPT/HCPCS: 36415; 80053; 83605; 83690; 83735; 85025; 86140; 96361; 96374; 96375; 99282; J2060; J2405; J2765

== ENCOUNTER 2018-04-18 10:34 | Emergency (ER) | payer BC ==
[2018-04-18 10:48] VITALS: BP 159/98
[2018-04-18] MEDS ORDERED: Ondansetron INJ* 2 MG/ML VIAL IV ONE (10:49)
[2018-04-18] MEDS ORDERED: NS 0.9% 1000 ML* 1,000 ML IV ONE (10:50)
[2018-04-18] MEDS ORDERED: Metoclopramide IV* 5 MG/ML 2 ML VIAL IV SLOW PU ONE (10:51)
[2018-04-18] MEDS ORDERED: Metoclopramide IV* 5 MG/ML 2 ML VIAL ONE (10:53)
[2018-04-18] MEDS ORDERED: LORazepam INJ* 2 MG/ML 1 ML VIAL IV PUSH ONE ×2 (11:42→12:18)
--- NOTE | 2018-04-18 12:33 | UC ---
Abdominal Pain Male HPI - HPI Summary HPI Summary: 27 y/o male with h/o cyclic vomiting, has been seen mulitple times in past with 2 recent visits, patient has had full evaluation by GI without results, believed t obe related to marjuiana intake for chronic pain. last epidsode other then current episode. - History of Current Complaint Chief Complaint: UCAbdominalPain Stated Complaint: VOMITTING Time Seen by Provider: 04/18/18 11:36 Hx Obtained From: Patient Onset/Duration: Sudden Onset Severity Initially: Moderate Severity Currently: Moderate Pain Intensity: 8 Pain Scale Used: 0-10 Numeric Aggravating Factor(s): Food, Movement - Allergies/Home Medications Allergies/Adverse Reactions: Allergies Allergy/AdvReac Type Severity Reaction Status Date / Time No Known Allergies Allergy Verified 04/18/18 10:51 PMH/Surg Hx/FS Hx/Imm Hx Previously Healthy: No - prior episodes - Surgical History Surgical History: None Surgery Procedure, Year, and Place: None reported - Family History Known Family History: Positive: Unknown - pt is adopted Family History: Pt is adopted. - Social History Alcohol Use: Occasionally Alcohol Amount: "a few drinks once or twice a month" Substance Use Type: Marijuana, Sedatives Substance Use Comment - Amount & Last Used: occasionally Smoking Status (MU): Light Every Day Tobacco Smoker Type: Cigarettes Amount Used/How Often: a couple per day - Immunization History Most Recent Influenza Vaccination: 2012 Most Recent Tetanus Shot: unknown Most Recent Pneumonia Vaccination: never Review of Systems All Other Systems Reviewed And Are Negative: Yes Gastrointestinal: Positive: Abdominal Pain, Vomiting, Nausea Is Patient Immunocompromised?: No Physical Exam Triage Information Reviewed: Yes Appearance: Well-Nourished, Pain Distress - mild Vital Signs: Initial Vital Signs Temp 98.4 F 04/18/18 10:43 Pulse 50 04/18/18 10:43 Resp 20 04/18/18 10:43 BP 159/98 04/18/18 10:43 Pulse Ox 100 04/18/18 10:43 Vital Signs Reviewed: Yes Eyes: Positive: Conjunctiva Clear Respiratory: Positive: Chest non-tender, Lungs clear, Normal breath sounds, No respiratory distress, No accessory muscle use Cardiovascular: Positive: RRR, No Murmur Abdomen Description: Positive: No Organomegaly, Soft, Other: - mild tenderness epigastric area with deep palpation. Negative: CVA Tenderness (R), CVA Tenderness (L), Distended, Guarding, Hepatomegaly, McBurney's Point Tenderness Bowel Sounds: Positive: Present Musculoskeletal Exam: Normal Musculoskeletal: Positive: Other: - normal gait Neurological Exam: Normal Psychological Exam: Normal Abd Pain Male Course/Dx - Course Course Of Treatment: h/o cyclic vomiting, patient given reglan, ativan, relieved symptoms, pt complaining of anxiety being in room, d/c'd home with scopolamine patch for help with symptoms, follow up with PCP. - Differential Dx/Clinical Impression Provider Diagnosis: Vomiting Discharge - Sign-Out/Discharge Documenting (check all that apply): Patient Departure All imaging exams completed and their final reports reviewed: No Studies - Discharge Plan Condition: Good Disposition: HOME Prescriptions: Scopolamine 1.5 mg* PATCH* [Transderm-Scop 1.5 mg Patch*] 1 patch TRANSDERM Q72H #7 patch Patient Education Materials: Acute Nausea and Vomiting (ED) Referrals: Ant Lopes MD [Primary Care Provider] - Additional Instructions: - scopolamine patch every 3 days to help control nausea/ vomiting - Increase fluid intake to prevent dehydration - Go to ER with return of symptoms for work up - Billing Disposition and Condition Condition: GOOD Disposition: Home
== END 2018-04-18 12:50 | disposition home or self-care (01) ==
LOC: UCEAST 10:34
DX: R11.10 Vomiting, unspecified (principal); R10.13 Epigastric pain; F17.210 Nicotine dependence, cigarettes, uncomplicated
CPT/HCPCS: 96361; 96374; 96375; 99212; G0463; J2060; J2765

== ENCOUNTER 2018-04-18 18:16 | Emergency (ER) | payer BC ==
[2018-04-18 18:22] VITALS: BP 149/94
== END 2018-04-18 21:08 | disposition left against medical advice (07) ==
LOC: ED 18:16
DX: R11.2 Nausea with vomiting, unspecified (principal); R10.9 Unspecified abdominal pain; Z53.21 Procedure and treatment not carried out due to patient leaving prior to being seen by health care provider

== ENCOUNTER 2018-08-04 13:57 | Emergency (ER) | payer BC ==
[2018-08-04 14:04] VITALS: BP 128/89
--- NOTE | 2018-08-04 14:30 | UC ---
Abdominal Pain Male HPI - HPI Summary HPI Summary: 27 yo male presents accompanied by mother. They tell me that pt has a long standing history of cyclic vomiting and abdominal pain. He has about 4-5 episodes a year. He has been seen multiple times in the ED and by GI for this with a negative workup each time. This morning pt woke and developed an abdominal "migraine" and vomiting as per his usual symptoms. Mom says that he is usually given an IV of saline, reglan, and sometimes ativan and these significantly improve his symptoms. Denies recent illness, fever, chills, SOB, chest pain, diarrhea. - History of Current Complaint Chief Complaint: UCGI Stated Complaint: ABD PAIN, VOMITTING Time Seen by Provider: 08/04/18 14:29 Hx Obtained From: Patient, Family/Heater Engineer Helper Onset/Duration: Sudden Onset Severity Initially: Moderate Severity Currently: Moderate Pain Intensity: 3 Pain Scale Used: 0-10 Numeric - Allergies/Home Medications Allergies/Adverse Reactions: Allergies Allergy/AdvReac Type Severity Reaction Status Date / Time No Known Allergies Allergy Verified 08/04/18 14:03 Home Medications: Home Medications LORazepam [Ativan 1 MG TAB] 1 tab PO ONCE PRN 08/04/18 [History Confirmed ] PMH/Surg Hx/FS Hx/Imm Hx - Additional Past Medical History Additional PMH: Cyclic vomiting - Surgical History Surgical History: None Surgery Procedure, Year, and Place: None reported - Family History Known Family History: Positive: Unknown - pt is adopted Family History: Pt is adopted. - Social History Lives: With Family Alcohol Use: Occasionally Alcohol Amount: "a few drinks once or twice a month" Substance Use Type: Marijuana, Sedatives Substance Use Comment - Amount & Last Used: occasionally Smoking Status (MU): Light Every Day Tobacco Smoker Type: Cigarettes Amount Used/How Often: a couple per day Household Exposure Type: Cigarettes - Immunization History Most Recent Influenza Vaccination: 2013 Most Recent Tetanus Shot: unknown Most Recent Pneumonia Vaccination: never Review of Systems All Other Systems Reviewed And Are Negative: Yes Constitutional: Positive: Negative Skin: Positive: Negative Respiratory: Positive: Negative Cardiovascular: Positive: Negative Gastrointestinal: Positive: Abdominal Pain, Vomiting, Nausea Genitourinary: Positive: Negative Neurovascular: Positive: Negative Neurological: Positive: Negative Psychological: Positive: Negative Physical Exam - Summary Physical Exam Summary: GENERAL: Vomiting. SKIN: No rashes, sores, lesions, or open wounds. NECK: Supple. Nontender. No lymphadenopathy. CHEST: CTAB. No r/r/w. No accessory muscle use. Breathing comfortably and in no distress. CV: RRR. Without m/r/g. Pulses intact. Cap refill <2seconds ABDOMEN: Soft. Generalized tenderness without point tenderness. No distention or guarding. Bowel sounds present NEURO: Alert. PSYCH: Age appropriate behavior. Triage Information Reviewed: Yes Vital Signs: Initial Vital Signs Temp 96.5 F 08/04/18 14:00 Pulse 52 08/04/18 14:00 Resp 18 08/04/18 14:00 BP 128/89 08/04/18 14:00 Pulse Ox 100 08/04/18 14:00 Vital Signs Reviewed: Yes Re-Evaluation - Re-Evaluation First Eval Re-Evaluation Time: 16:01 Change: Improved Comment: No more vomiting and only mild abdominal discomfort. Feels much better and wishes to go home Abd Pain Male Course/Dx - Course Course Of Treatment: In the clinic pt was given an IV of NS, reglan, and ativan. He had no more episodes of vomiting and his pain significantly improved. He is asking to go home and says he feels much better. - Differential Dx/Clinical Impression Provider Diagnosis: Cyclic vomiting syndrome Discharge - Sign-Out/Discharge Documenting (check all that apply): Patient Departure All imaging exams completed and their final reports reviewed: No Studies - Discharge Plan Condition: Stable Disposition: HOME Patient Education Materials: Cyclic Vomiting Syndrome (ED) Referrals: Ant Lopes MD [Primary Care Provider] - Additional Instructions: If you develop a fever, shortness of breath, chest pain, new or worsening symptoms - please call your PCP or go to the ED. - Billing Disposition and Condition Condition: STABLE Disposition: Home
[2018-08-04] MEDS ORDERED: NS 0.9% 1000 ML** 1,000 ML IV ONE (14:33)
[2018-08-04] MEDS ORDERED: LORazepam INJ* 2 MG/ML 1 ML VIAL IV PUSH ONE (14:34)
[2018-08-04] MEDS ORDERED: Metoclopramide IV* 5 MG/ML 2 ML VIAL IV ONE (14:34)
== END 2018-08-04 16:03 | disposition home or self-care (01) ==
LOC: UCEAST 13:57
DX: G43.A0 Cyclical vomiting, in migraine, not intractable (principal); F17.210 Nicotine dependence, cigarettes, uncomplicated; R10.9 Unspecified abdominal pain
CPT/HCPCS: 96360; 96374; 96376; 99211; G0463; J2060; J2765

== ENCOUNTER 2018-09-28 19:54 | Emergency (ER) | payer BC ==
[2018-09-28 20:15] VITALS: BP 116/91
[2018-09-28] MEDS ORDERED: Metoclopramide IV* 5 MG/ML 2 ML VIAL IV ONE (20:28)
[2018-09-28] MEDS ORDERED: NS 0.9% 1000 ML** 1,000 ML IV ONE (20:29)
--- NOTE | 2018-09-28 20:34 | UC ---
UC General HPI - HPI Summary HPI Summary: 27-year-old male comes in with chief complaint of sudden onset of fever chills body aches sore throat nausea vomiting cramping abdominal pain that started this morning. Every time he eats he throws up. Not eating decreases the vomiting. Patient does have a history history of cyclic vomiting syndrome. Patient has a hard time deciding whether or not this is cyclic vomiting syndrome. He's worried he has the flu. - History of Current Complaint Chief Complaint: UCGI Stated Complaint: VOMITING, AND COUGH Time Seen by Provider: 09/28/18 20:21 Pain Intensity: 7 - Allergy/Home Medications Allergies/Adverse Reactions: Allergies Allergy/AdvReac Type Severity Reaction Status Date / Time No Known Allergies Allergy Verified 09/28/18 20:15 Home Medications: Home Medications Simethicone [Gas-X] 1 cap PO ONCE PRN 09/28/18 [History Confirmed 09/28/18] PMH/Surg Hx/FS Hx/Imm Hx Previously Healthy: Yes Other GI/ History: CYCLIC VOMITING - Surgical History Surgical History: None Surgery Procedure, Year, and Place: None reported - Family History Known Family History: Positive: Unknown - pt is adopted Family History: Pt is adopted. - Social History Alcohol Use: Occasionally Alcohol Amount: "a few drinks once or twice a month" Substance Use Type: Marijuana Substance Use Comment - Amount & Last Used: occasionally Smoking Status (MU): Current Some Day Smoker Type: Cigarettes Amount Used/How Often: a couple per day Household Exposure Type: Cigarettes - Immunization History Most Recent Influenza Vaccination: 2013 Most Recent Tetanus Shot: unknown Most Recent Pneumonia Vaccination: never Review of Systems All Other Systems Reviewed And Are Negative: Yes Constitutional: Positive: Fever, Chills Skin: Positive: Negative Eyes: Positive: Negative ENT: Positive: Sore Throat Respiratory: Positive: Negative Cardiovascular: Positive: Negative Gastrointestinal: Positive: Abdominal Pain, Vomiting, Nausea Genitourinary: Positive: Negative Motor: Positive: Negative Neurovascular: Positive: Negative Musculoskeletal: Positive: Myalgia Neurological: Positive: Headache Psychological: Positive: Negative Is Patient Immunocompromised?: No Physical Exam Triage Information Reviewed: Yes Appearance: No Pain Distress, Well-Nourished, Ill-Appearing - MILD Vital Signs: Initial Vital Signs Temp 97.1 F 09/28/18 20:10 Pulse 53 09/28/18 20:10 Resp 16 09/28/18 20:10 BP 116/91 09/28/18 20:10 Pulse Ox 100 09/28/18 20:10 Vital Signs Reviewed: Yes Eye Exam: Normal Eyes: Positive: Conjunctiva Clear ENT: Positive: Pharyngeal erythema, TMs normal Neck: Positive: Supple Respiratory: Positive: Lungs clear, Normal breath sounds, No respiratory distress Cardiovascular: Positive: RRR Abdomen Description: Positive: Other: - MILD DIFFUSE TENDERNESS. NO RLQ TENDERNESS. Bowel Sounds: Positive: Present Musculoskeletal: Positive: Strength Intact, ROM Intact Neurological: Positive: Alert, Muscle Tone Normal Psychological Exam: Normal Psychological: Positive: Normal Response To Family, Age Appropriate Behavior Skin Exam: Normal Course/Dx - Course Course Of Treatment: In clinic the patient improved with IV fluids, Reglan 10 mg IV, and Ativan 1 mg IV. Rapid strep and influenza's were negative. Abdominal pain was diffuse and cramping and intermittent. Plan is to follow-up with primary care doctor go the emergency department if any worsening. - Diagnoses Provider Diagnosis: Nausea & vomiting, Abdominal pain Discharge - Sign-Out/Discharge Documenting (check all that apply): Patient Departure All imaging exams completed and their final reports reviewed: No Studies - Discharge Plan Condition: Stable Disposition: HOME Patient Education Materials: Acute Nausea and Vomiting (ED), Acute Abdominal Pain (DC) Referrals: Ant Lopes MD [Primary Care Provider] - Additional Instructions: FOLLOW UP WITH YOUR DOCTOR IF NOT COMPLETELY IMPROVED. GO TO THE EMERGENCY DEPARTMENT IF YOUR CONDITION WORSENS OR ANY QUESTIONS OR CONCERNS. - Billing Disposition and Condition Condition: STABLE Disposition: Home
[2018-09-28 20:57] LABS: Influenza A Molecular NEGATIVE (Negative); Influenza B Molecular NEGATIVE (Negative)
[2018-09-28] MEDS ORDERED: Lorazepam PYXIS KEY PRN (21:26)
[2018-09-28] MEDS ORDERED: LORazepam INJ* 2 MG/ML 1 ML VIAL IV PUSH ONE (21:26)
[2018-09-28] MEDS ORDERED: Lorazepam PYXIS KEY ONE (21:39)
== END 2018-09-28 22:02 | disposition home or self-care (01) ==
LOC: UCEAST 19:54
DX: R11.2 Nausea with vomiting, unspecified (principal); R10.84 Generalized abdominal pain; F17.210 Nicotine dependence, cigarettes, uncomplicated
CPT/HCPCS: 87651; 96361; 96365; 96376; 99211; G0463; J2060; J2765

== ENCOUNTER → 2018-09-30 03:57 | Emergency (ER) | payer BC ==
[~2018-09-30 03:57] MED LIST: Famotidine TAB* 20 MG PO ONE; Haloperidol INJ IV/IM* 5 MG/ML AMP IV SLOW PU ONE; NS 0.9% 1000 ML** 1,000 ML IV ONE; Pantoprazole IV* 40 MG IV ONE; diPHENhydraMINE IV* 50 MG/ML 1 ml VIAL (BENADRYL) IV ONE
--- NOTE | 2018-09-30 04:20 | ED ---
GI/ HPI - HPI Summary HPI Summary: Pt is a 27 y/o male who presents to the ED c/o N/V. 2 days ago he began to have N/V and epigastric pain. Pt denies any fever. Pain is rated a 9/10 in severity and is described as stabbing. Symptoms are made worse with a cold shower. He has been diagnosed with cyclic vomiting syndrome. Pt uses marijuana daily, but hasnt used in the past few days. He has seen a GI physician in the past, and it was believed the vomiting was possibly due to a vagus nerve issue. Prior endoscopy has been normal. - History of Current Complaint Chief Complaint: EDNauseaVomitDiarrh Time Seen by Provider: 09/30/18 04:06 Stated Complaint: NAUSEA/VOMITING/ABD PAIN PER PT Hx Obtained From: Patient Onset/Duration: Started Days Ago - 2, Still Present Timing: Constant Current Severity: Severe Pain Intensity: 9 Location of Pain: Epigastric Associated Signs and Symptoms: Positive: Nausea, Vomiting - Additional Pertinent History Primary Care Physician: KASH - Allergy/Home Medications Allergies/Adverse Reactions: Allergies Allergy/AdvReac Type Severity Reaction Status Date / Time No Known Allergies Allergy Verified 09/30/18 04:05 PMH/Surg Hx/FS Hx/Imm Hx Endocrine/Hematology History: Denies: Hx Diabetes, Hx Thyroid Disease Cardiovascular History: Denies: Hx Congestive Heart Failure, Hx Hypertension Respiratory History: Reports: Hx Asthma Denies: Hx Chronic Obstructive Pulmonary Disease (COPD) GI History: Reports: Other GI Disorders - cyclical vomiting and abdominal migraines Denies: Hx Ulcer History: Denies: Hx Renal Disease Musculoskeletal History: Denies: Hx Arthritis, Hx Osteoporosis Sensory History: Denies: Hx Cataracts, Hx Contacts or Glasses, Hx Glaucoma, Hx Hearing Aid Opthamlomology History: Denies: Hx Cataracts, Hx Contacts or Glasses, Hx Glaucoma Psychiatric History: Reports: Hx Attention Deficit Hyperactivity Disorder - Cancer History Cancer Type, Location and Year: None reported - Surgical History Surgery Procedure, Year, and Place: None reported Infectious Disease History: No Infectious Disease History: Denies: Hx Hepatitis, Hx Human Immunodeficiency Virus (HIV), Traveled Outside the [place] in Last 30 Days - Family History Known Family History: Positive: Unknown - pt is adopted - Social History Alcohol Use: Occasionally Alcohol Amount: "a few drinks once or twice a month" Hx Substance Use: Yes Substance Use Type: Reports: Marijuana Substance Use Comment - Amount & Last Used: daily Hx Tobacco Use: Yes Smoking Status (MU): Current Some Day Smoker Type: Cigarettes Amount Used/How Often: a couple per day Review of Systems Negative: Fever Positive: Abdominal Pain, Vomiting, Nausea All Other Systems Reviewed And Are Negative: Yes Physical Exam - Summary Physical Exam Summary: Appearance: well appearing, mild pain distress, harsh wretching Skin: warm, dry, reflects adequate perfusion Head/face: normal Eyes: EOMI, PAOLO ENT: mucous membranes moist Neck: supple, non-tender Respiratory: CTA, breath sounds present Cardiovascular: RRR, pulses symmetrical Abdomen: non-tender, soft Bowel Sounds: decreased Musculoskeletal: normal, strength/ROM intact Neuro: normal, sensory motor intact, A&Ox3 Triage Information Reviewed: Yes Vital Signs On Initial Exam: Initial Vitals Temp Pulse Resp BP Pulse Ox 97.7 F 66 16 147/83 99 09/30/18 04:00 09/30/18 04:00 09/30/18 04:00 09/30/18 04:00 09/30/18 04:00 Vital Signs Reviewed: Yes Diagnostics - Vital Signs Vital Signs Temp Pulse Resp BP Pulse Ox 09/30/18 04:00 97.7 F 66 16 147/83 99 - Laboratory Result Diagrams: 09/30/18 04:33 09/30/18 04:33 Lab Statement: Any lab studies that have been ordered have been reviewed, and results considered in the medical decision making process. Re-Evaluation - Re-Evaluation First Eval Re-Evaluation Time: 05:31 Change: Improved Comment: Pt feels much better. GIGU Course/Dx - Course Course Of Treatment: 27-year-old male with history of cyclic vomiting syndrome who also happens to be a daily user of marijuana presents with recurrent nausea and vomiting. He is treated here with IV hydration, Haldol/Benadryl with rapid improvement. He is also given GI protection with PPI and H2 delmer. He'll be started on Reglan and is counseled to discontinue marijuana use. He'll follow- up with GI and his family doctor. - Diagnoses Differential Diagnoses - Male: Other - Cyclic vomiting syndrome, cannabis abuse , gastroparesis, GI motility issue Provider Diagnoses: Cyclic vomiting syndrome, Cannabis abuse, Cannabis hyperemesis syndrome concurrent with and due to cannabis abuse Discharge - Sign-Out/Discharge Documenting (check all that apply): Patient Departure - Discharge Patient Received Moderate/Deep Sedation with Procedure: No - Discharge Plan Condition: Improved Disposition: HOME Prescriptions: Famotidine TAB* [Pepcid 20 MG TAB*] 20 mg PO BID #30 tab Metoclopramide HCl [Metoclopramide HCl Odt] 10 mg PO TID #40 tab.rapdis Sucralfate TAB* [Carafate*] 1 gm PO QID #60 tab Patient Education Materials: Cannabis Abuse (ED), Cyclic Vomiting Syndrome (ED) Forms: *Work Release Referrals: Ant Lopes MD [Primary Care Provider] - Additional Instructions: Discontinue marijuana. Talk to her doctor about treating her stress with medications or other techniques. You may need to see GI doctor or acyclic vomiting clinic outside of the area. Talk to her doctor about this. Return with persistent vomiting, pain, fever, worse or other concerns. What is cannabinoid hyperemesis syndrome? Cannabinoid hyperemesis syndrome (CHS) is a condition that leads to repeated and severe bouts of vomiting. It is rare and only occurs in daily long-term users of marijuana. Marijuana has several active substances. These include THC and related chemicals. These substances bind to molecules found in the brain. That causes the drug high and other effects that users feel. Your digestive tract also has a number of molecules that bind to THC and related substances. So marijuana also affects the digestive tract. For example, the drug can change the time it takes the stomach to empty. It also affects the esophageal sphincter. Thats the tight band of muscle that opens and closes to let food from the esophagus into the stomach. Long-term marijuana use can change the way the affected molecules respond and lead to the symptoms of CHS. Marijuana is the most widely used illegal drug in the [place] Young adults are the most frequent users. A small number of these people develop CHS. It often only happens in people who have regularly used marijuana for several years. Often CHS affects those who use the drug at least once a day. What causes cannabinoid hyperemesis syndrome? Marijuana has very complex effects on the body. Experts are still trying to learn exactly how it causes CHS in some people. In the brain, marijuana often has the opposite effect of CHS. It helps prevent nausea and vomiting. The drug is also good at stopping such symptoms in people having chemotherapy. But in the digestive tract, marijuana seems to have the opposite effect. It actually makes you more likely to have nausea and vomiting. With the first use of marijuana, the signals from the brain may be more important. That may lead to anti-nausea effects at first. But with repeated use of marijuana, certain receptors in the brain may stop responding to the drug in the same way. That may cause the repeated bouts of vomiting found in people with CHS. It still isnt clear why some heavy marijuana users get the syndrome, but others don't. What are the symptoms of cannabinoid hyperemesis syndrome? People with CHS suffer from repeated bouts of vomiting. In between these episodes are times without any symptoms. Healthcare providers often divide these symptoms into 3 stages: the prodromal phase, the hyperemetic phase, and the recovery phase. Prodromal phase. During this phase, the main symptoms are often chef saucier nausea and belly (abdominal) pain. Some people also develop a fear of vomiting. Most people keep normal eating patterns during this time. Some people use more marijuana because they think it will help stop the nausea. This phase may last for months or years. Hyperemetic phase. Symptoms during this time may include: Ongoing nausea Repeated episodes of vomiting Belly pain Decreased food intake and weight loss Symptoms of fluid loss (dehydration) During this phase, vomiting is often intense and overwhelming. Many people take a lot of hot showers during the day. They find that doing so eases their nausea. (That may be because of how the hot temperature affects a part of the brain called the hypothalamus. This part of the brain effects both temperature regulation and vomiting.) People often first seek medical care during this phase. The hyperemetic phase may continue until the person completely stops using marijuana. Then the recovery phrase starts. Recovery phase. During this time, symptoms go away. Normal eating is possible again. This phase can last days or months. Symptoms often come back if the person tries marijuana again. How is cannabinoid hyperemesis syndrome diagnosed? Many health problems can cause repeated vomiting. To make a diagnosis, your healthcare provider will ask you about your symptoms and your past health. He or she will also do a physical exam, including an exam of your belly. Your healthcare provider may also need more tests to rule out other causes of the vomiting. Thats especially the case for ones that may signal a health emergency. Based on your other symptoms, these tests might include: Blood tests for anemia and infection Tests for electrolytes Tests for pancreas and liver enzymes, to check these organs test Urine analysis, to test for infection or other urinary causes Drug screen, to test for drug-related causes of vomiting X-rays of the belly, to check for things such as a blockage Upper endoscopy, to view the stomach and esophagus for possible causes of vomiting Head CT scan, if a nervous system cause of vomiting seems likely Abdominal CT scan, to check for health problems that might need surgery CHS was only recently discovered. So some healthcare providers may not know about it. As a result, they may not spot it for many years. They often confuse CHS with cyclical vomiting disorder. That is a health problem that causes similar symptoms. A specialist trained in diseases of the digestive tract ( tax specialist) might make the diagnosis. You may have CHS if you have all of these: Long-term weekly and daily marijuana use Belly pain Severe, repeated nausea and vomiting You feel better after taking a hot shower There is no single test that confirms this diagnosis. Only improvement after quitting marijuana confirms the diagnosis. How is cannabinoid hyperemesis syndrome treated? If you have had severe vomiting, you might need to stay in the hospital for a short time. During the hyperemesis phase, you might need these treatments: IV (intravenous) fluid replacement for dehydration Medicines to help decrease vomiting Pain medicine Proton-pump inhibitors, to treat stomach inflammation Frequent hot showers In a small sample of people with CHS, rubbing capsaicin cream on the belly helped decrease pain and nausea. The chemicals in the cream have the same effect as a hot shower Symptoms often ease after a day or 2 unless marijuana is used before this time. To fully get better, you need to stop using marijuana all together. Some people may get help from drug rehab programs to help them quit. Cognitive behavioral therapy or family therapy can also help. If you stop using marijuana, your symptoms should not come back. What are possible complications of cannabinoid hyperemesis syndrome? Very severe, prolonged vomiting may lead to dehydration. It may also lead to electrolyte problems in your blood. If untreated, these can cause rare complications such as: Muscle spasms or weakness Seizures Kidney failure Heart rhythm abnormalities Shock In very rare cases, brain swelling (cerebral edema) Your healthcare team will quickly work to fix any dehydration or electrolyte problems. Doing so can help prevent these problems. What can I do to prevent cannabinoid hyperemesis syndrome? You can prevent CHS by not using marijuana in any form. You may not want to believe that marijuana may be the underlying cause of your symptoms. That may be because you have used it for many years without having any problems. The syndrome may take several years to develop. The drug may help prevent nausea in new users who dont use it often. But people with CHS need to completely stop using it. If they dont, their symptoms will likely come back. Quitting marijuana may lead to other health benefits, such as: Better lung function Improved memory and thinking skills Better sleep Decreased risk for depression and anxiety When should I call my healthcare provider? Call your healthcare provider if you have had severe vomiting for a day or more. Amezcua points about cannabinoid hyperemesis syndrome CHS is a condition that leads to repeated and severe bouts of vomiting. It results from long-term use of marijuana. Most people self-treat using hot showers to help reduce their symptoms. Some people with CHS may not be diagnosed for several years. Admitting to your healthcare provider that you use marijuana daily can speed up the diagnosis. You might need to stay in the hospital to treat dehydration from CHS. Symptoms start to go away within a day or 2 after stopping marijuana use. Symptoms almost always come back if you use marijuana again. - Billing Disposition and Condition Condition: IMPROVED Disposition: Home - Attestation Statements Document Initiated by Francisco: Yes Documenting Sukhibe: Rocio Gonzales Provider For Whom Francisco is Documenting (Include Credential): Rm Castellon MD Scribe Attestation: Rocio Marino, scribed for Rm Castellon MD on 09/30/18 at 0607. Scribe Documentation Reviewed: Yes Provider Attestation: The documentation as recorded by the Rocio lerner accurately reflects the service I personally performed and the decisions made by me, Rm Castellon MD Status of Scribe Document: Viewed
[2018-09-30 04:43] LABS: ABS Lymphocytes 1.9 10^3/ul (1.0-4.8); ABS Monocytes 0.8 10^3/ul (0-0.8); ABS Neutrophils 3.6 10^3/ul (1.5-7.7); Eosinophil % 0.2 %; Hematocrit 48 % (42-52); Hemoglobin 16.5 g/dL (14.0-18.0); Lymphocyte % 29.8 %; Mean Corpuscular HGB Conc 34 g/dL (31-36); Mean Corpuscular Hemoglobin 30 pg (27-31); Mean Corpuscular Volume 86 fL (80-94); Mean Platelet Volume 8.6 fL (7.4-10.4); Nucleated Red Blood Cells % 0.1; Platelet Count 227 10^3/uL (150-450); Red Blood Count 5.55 10^6 /uL (4.18-5.48); Red Cell Distribution Width 14 % (10.5-15); White Blood Count 6.3 10^3/uL (3.5-10.8)
[2018-09-30 05:00] LABS: Albumin/Globulin Ratio 1.9 (1-3); BUN/Creatinine Ratio 24.4 (8-20); EGFR African American 124.4 (>60); EGFR Non-African American 102.8 (>60); Globulin 2.6 g/dL (2-4); Total Bilirubin 1.4 mg/dL (0.2-1.0); Total Protein 7.6 g/dL (6.4-8.9)
[2018-09-30 05:44] VITALS: BP 118/63
== END | disposition home or self-care (01) ==
LOC: ED 03:57
DX: G43.A0 Cyclical vomiting, in migraine, not intractable (principal); F12.19 Cannabis abuse with unspecified cannabis-induced disorder; J45.909 Unspecified asthma, uncomplicated; F90.9 Attention-deficit hyperactivity disorder, unspecified type; Z72.0 Tobacco use
CPT/HCPCS: 36415; 80053; 83690; 85025; 96374; 96375; 99284; A9270-GY; J1200; J1630

== ENCOUNTER 2018-09-30 17:43 | Emergency (ER) | payer BC ==
[2018-09-30] MEDS ORDERED: Al Hydrox/Mg Hydrox/Simet LIQ* 30 ML UDC PO ONE ×2 (18:25→21:49)
[2018-09-30] MEDS ORDERED: Lidocaine 2% VISCOUS* 15 ML UDC PO ONE ×2 (18:25→21:49)
[2018-09-30] MEDS ORDERED: NS 0.9% 1000 ML** 1,000 ML IV ONE ×2 (18:39→19:39)
[2018-09-30] MEDS ORDERED: Metoclopramide IV* 5 MG/ML 2 ML VIAL IV ONE (18:39)
[2018-09-30] MEDS ORDERED: Morphine 4 MG/ML VIAL (1 ml) 4 MG/ML VIAL IV ONE (18:39)
[2018-09-30 19:14] LABS: ABS Lymphocytes 1.9 10^3/ul (1.0-4.8); ABS Monocytes 0.8 10^3/ul (0-0.8); ABS Neutrophils 3.2 10^3/ul (1.5-7.7); Eosinophil % 0.3 %; Hematocrit 46 % (42-52); Hemoglobin 15.6 g/dL (14.0-18.0); Lymphocyte % 31.1 %; Mean Corpuscular HGB Conc 34 g/dL (31-36); Mean Corpuscular Hemoglobin 30 pg (27-31); Mean Corpuscular Volume 87 fL (80-94); Mean Platelet Volume 8.3 fL (7.4-10.4); Nucleated Red Blood Cells % 0.1; Platelet Count 207 10^3/uL (150-450); Red Blood Count 5.25 10^6 /uL (4.18-5.48); Red Cell Distribution Width 14 % (10.5-15)
[2018-09-30] MEDS ORDERED: Iohexol 300* (CONTRAST) 10 ML SDV IV ONE (19:14)
[2018-09-30 19:31] LABS: ALT 17 U/L (7-52); AST 11 U/L (13-39); Albumin 4.5 g/dL (3.2-5.2); Alkaline Phosphatase 58 U/L (34-104); Anion Gap 8 mmol/L (2-11); BUN/Creatinine Ratio 22.5 (8-20); Blood Urea Nitrogen 18 mg/dL (6-24); C Reactive Protein < 1.00 mg/L (<8.01); CO2 Carbon Dioxide 23 mmol/L (22-32); Calcium 9.2 mg/dL (8.6-10.3); Chloride 105 mmol/L (101-111); EGFR African American 142.5 (>60); EGFR Non-African American 117.8 (>60); Globulin 2.3 g/dL (2-4); Glucose 90 mg/dL (70-100); Potassium 3.6 mmol/L (3.5-5.0); Sodium 136 mmol/L (135-145); Total Protein 6.8 g/dL (6.4-8.9)
--- NOTE | 2018-09-30 19:53 | ED ---
Abdominal Pain/Male - HPI Summary HPI Summary: Patient complains of epigastric pain, nausea or vomiting, decreased by mouth intake, chills3 days. Patient was evaluated here for same this a.m., states increase in pain, increase in lightheadedness. History of similar symptoms times years, occurring 2-3 times a year. Endoscopy evaluation 2 years ago unremarkable. Patient has also been diagnosed with cyclical vomiting syndrome. Denies fever, cough, sore throat, CP, SOB, diarrhea, change in urine, penile or testicular symptoms. Medical history is cyclical vomiting syndrome. Abdominal surgical history is none. Denies EtOH, or recreational drug use. - History of Current Complaint Chief Complaint: EDNauseaVomitDiarrh Stated Complaint: "STOMACH PAIN" PER PT Time Seen by Provider: 09/30/18 18:22 Hx Obtained From: Patient, Family/Dye Reel Operator Helper Onset/Duration: Gradual Onset, Lasting Days Timing: Constant Severity Initially: Moderate Severity Currently: Severe Pain Intensity: 9 Pain Scale Used: 0-10 Numeric Location: Epigastric Radiates: No Character: Sharp Aggravating Factor(s): Food, Movement Alleviating Factor(s): Nothing Associated Signs And Symptoms: Positive: Decreased Appetite, Nausea, Vomiting - Allergies/Home Medications Allergies/Adverse Reactions: Allergies Allergy/AdvReac Type Severity Reaction Status Date / Time No Known Allergies Allergy Verified 09/30/18 17:48 Home Medications: Home Medications Albuterol Sulfate [Albuterol Sulfate Hfa] 2 puff INH Q4H PRN 09/30/18 [History Confirmed 09/30/18] PMH/Surg Hx/FS Hx/Imm Hx Endocrine/Hematology History: Denies: Hx Diabetes, Hx Thyroid Disease Cardiovascular History: Denies: Hx Congestive Heart Failure, Hx Hypertension Respiratory History: Reports: Hx Asthma Denies: Hx Chronic Obstructive Pulmonary Disease (COPD) GI History: Reports: Other GI Disorders - cyclical vomiting and abdominal migraines Denies: Hx Ulcer History: Denies: Hx Renal Disease Musculoskeletal History: Denies: Hx Arthritis, Hx Osteoporosis Sensory History: Denies: Hx Cataracts, Hx Contacts or Glasses, Hx Glaucoma, Hx Hearing Aid Opthamlomology History: Denies: Hx Cataracts, Hx Contacts or Glasses, Hx Glaucoma Psychiatric History: Reports: Hx Attention Deficit Hyperactivity Disorder - Cancer History Cancer Type, Location and Year: None reported - Surgical History Surgery Procedure, Year, and Place: None reported Infectious Disease History: No Infectious Disease History: Denies: Hx Hepatitis, Hx Human Immunodeficiency Virus (HIV), Traveled Outside the [place] in Last 30 Days - Family History Known Family History: Positive: Unknown - pt is adopted - Social History Alcohol Use: Occasionally Alcohol Amount: "a few drinks once or twice a month" Hx Substance Use: Yes Substance Use Type: Reports: Marijuana Substance Use Comment - Amount & Last Used: daily Hx Tobacco Use: Yes Smoking Status (MU): Current Some Day Smoker Type: Cigarettes Amount Used/How Often: a couple per day Review of Systems Constitutional: Negative Eyes: Negative ENT: Negative Cardiovascular: Negative Respiratory: Negative Positive: Abdominal Pain, Vomiting, Nausea Genitourinary: Negative Musculoskeletal: Negative Skin: Negative Neurological: Negative Psychological: Normal All Other Systems Reviewed And Are Negative: Yes Physical Exam - Summary Physical Exam Summary: Abdomen tender diffusely, worse in epigastric quadrant. Lung sounds clear to auscultation bilaterally. RRR. Triage Information Reviewed: Yes Vital Signs On Initial Exam: Initial Vitals Temp Pulse Resp BP Pulse Ox 99.6 F 70 17 125/99 97 09/30/18 17:45 09/30/18 17:45 09/30/18 17:45 09/30/18 17:45 09/30/18 17:45 Vital Signs Reviewed: Yes Appearance: Positive: Well-Appearing Skin: Positive: Warm Head/Face: Positive: Normal Head/Face Inspection Eyes: Positive: Normal Neck: Positive: Supple Respiratory/Lung Sounds: Positive: Clear to Auscultation Cardiovascular: Positive: Normal Abdomen Description: Positive: Other: Musculoskeletal: Positive: Normal Neurological: Positive: Normal Psychiatric: Positive: Normal AVPU Assessment: Alert Diagnostics - Vital Signs Vital Signs Temp Pulse Resp BP Pulse Ox 09/30/18 19:00 64 98 09/30/18 18:51 16 09/30/18 18:33 58 164/96 100 09/30/18 17:45 99.6 F 70 17 125/99 97 - Laboratory Lab Results: Lab Results 09/30/18 09/30/18 Range/Units 19:03 19:03 WBC 6.0 (3.5-10.8) 10^3/uL RBC 5.25 (4.18-5.48) 10^6 /uL Hgb 15.6 (14.0-18.0) g/dL Hct 46 (42-52) % MCV 87 (80-94) fL MCH 30 (27-31) pg MCHC 34 (31-36) g/dL RDW 14 (10.5-15) % Plt Count 207 (150-450) 10^3/uL MPV 8.3 (7.4-10.4) fL Neut % (Auto) 54.5 % Lymph % (Auto) 31.1 % [place] % (Auto) 13.8 % Eos % (Auto) 0.3 % Baso % (Auto) 0.3 % Absolute Neuts (auto) 3.2 (1.5-7.7) 10^3/ul Absolute Lymphs (auto) 1.9 (1.0-4.8) 10^3/ul Absolute Monos (auto) 0.8 (0-0.8) 10^3/ul Absolute Eos (auto) 0.0 (0-0.6) 10^3/ul Absolute Basos (auto) 0.0 (0-0.2) 10^3/ul Absolute Nucleated RBC 0.0 10^3/ul Nucleated RBC % 0.1 Sodium 136 (135-145) mmol/L Potassium 3.6 (3.5-5.0) mmol/L Chloride 105 (101-111) mmol/L Carbon Dioxide 23 (22-32) mmol/L Anion Gap 8 (2-11) mmol/L BUN 18 (6-24) mg/dL Creatinine 0.80 (0.67-1.17) mg/dL Est GFR ( Amer) 142.5 (>60) Est GFR (Non-Af Amer) 117.8 (>60) BUN/Creatinine Ratio 22.5 H (8-20) Glucose 90 (70-100) mg/dL Calcium 9.2 (8.6-10.3) mg/dL Total Bilirubin 1.70 H (0.2-1.0) mg/dL AST 11 L (13-39) U/L ALT 17 (7-52) U/L Alkaline Phosphatase 58 (34-104) U/L C-Reactive Protein < 1.00 (<8.01) mg/L Total Protein 6.8 (6.4-8.9) g/dL Albumin 4.5 (3.2-5.2) g/dL Globulin 2.3 (2-4) g/dL Albumin/Globulin Ratio 2.0 (1-3) Lipase < 10 L (11.0-82.0) U/L Result Diagrams: 09/30/18 19:03 09/30/18 19:03 Lab Statement: Any lab studies that have been ordered have been reviewed, and results considered in the medical decision making process. Abdominal Pain Male Course/Dx - Course Course Of Treatment: Patient complains of epigastric pain, nausea or vomiting, decreased by mouth intake, chills3 days. Patient was evaluated here for same this a.m., states increase in pain, increase in lightheadedness. History of similar symptoms times years, occurring 2-3 times a year. Endoscopy evaluation 2 years ago unremarkable. Patient has also been diagnosed with cyclical vomiting syndrome. Denies fever, cough, sore throat, CP, SOB, diarrhea, change in urine, penile or testicular symptoms. Medical history is cyclical vomiting syndrome. Abdominal surgical history is none. Denies EtOH, or recreational drug use. Physical exam:Abdomen tender diffusely, worse in epigastric quadrant. Lung sounds clear to auscultation bilaterally. RRR. No recent imaging. Vital signs within normal limits. Bili 1.7. History of elevated bilirubin per prior charts. Labs otherwise unremarkable. Ultrasound gallbladder unremarkable. - Diagnoses Provider Diagnoses: Epigastric pain, Nausea & vomiting Discharge - Sign-Out/Discharge Documenting (check all that apply): Patient Departure Patient Received Moderate/Deep Sedation with Procedure: No - Discharge Plan Condition: Stable Disposition: HOME Patient Education Materials: Epigastric Pain (ED), Acute Nausea and Vomiting ( ED) Referrals: Ant Lopes MD [Primary Care Provider] - Additional Instructions: Follow-up with your primary care doctor appointment this Friday. Take Reglan with Benadryl 50 mg. Return to the ED for any new or worsening symptoms. - Billing Disposition and Condition Condition: STABLE Disposition: Home
[2018-09-30] MEDS ORDERED: oxyCODONE TAB* 5 MG TAB PO ONE (22:07)
[2018-09-30] MEDS ORDERED: Metoclopramide TAB* 10 MG PO ONE (22:07)
[2018-09-30 22:52] VITALS: BP 137/80
== END 2018-09-30 22:40 | disposition home or self-care (01) ==
LOC: ED 17:43
DX: R10.13 Epigastric pain (principal); R11.2 Nausea with vomiting, unspecified; F17.210 Nicotine dependence, cigarettes, uncomplicated; J45.909 Unspecified asthma, uncomplicated
CPT/HCPCS: 36415; 74177; 76705; 80053; 83690; 85025; 86140; 96361; 96374; 96375; 99284; A9270-GY; J2270; J2765; Q9967

== ENCOUNTER 2019-01-21 17:51 | Emergency (ER) | payer SELFPAY ==
[2019-01-21] MEDS ORDERED: Lorazepam PYXIS KEY PRN (18:02)
[2019-01-21] MEDS ORDERED: LORazepam INJ* 2 MG/ML 1 ML VIAL IV PUSH ONE (18:02)
[2019-01-21] MEDS ORDERED: Metoclopramide IV* 5 MG/ML 2 ML VIAL IV ONE (18:02)
[2019-01-21] MEDS ORDERED: NS 0.9% 1000 ML** 1,000 ML IV ONE ×2 (18:03→19:39)
[2019-01-21 18:05] VITALS: BP 148/81
[2019-01-21] MEDS ORDERED: LORazepam INJ* 2 MG/ML 1 ML VIAL ONE (18:12)
[2019-01-21] MEDS ORDERED: Lorazepam PYXIS KEY ONE (18:12)
--- NOTE | 2019-01-21 18:33 | UC ---
Nausea/Vomiting/Diarrhea HPI - HPI Summary HPI Summary: 28-year-old male comes in with a chief complaint of nausea and vomiting. Patient has a long-standing history of abdominal migraines and this is what this feels like. Gets diffuse abdominal cramping. Vomited multiple times. Mouth feels dry. No fevers measured. - History of Current Complaint Chief Complaint: UCGI Stated Complaint: VOMITING Time Seen by Provider: 01/21/19 17:56 Pain Intensity: 7 - Allergies/Home Medications Allergies/Adverse Reactions: Allergies Allergy/AdvReac Type Severity Reaction Status Date / Time No Known Allergies Allergy Verified 01/21/19 18:02 PMH/Surg Hx/FS Hx/Imm Hx Previously Healthy: Yes - ABDOMINAL MIGRAINE - Surgical History Surgical History: None Surgery Procedure, Year, and Place: None reported - Family History Known Family History: Positive: Unknown - pt is adopted - Social History Alcohol Use: Occasionally Alcohol Amount: "a few drinks once or twice a month" Substance Use Type: Marijuana Substance Use Comment - Amount & Last Used: 2 x per week Smoking Status (MU): Current Some Day Smoker Type: Cigarettes Amount Used/How Often: a couple per day Household Exposure Type: Cigarettes - Immunization History Most Recent Influenza Vaccination: 2013 Most Recent Tetanus Shot: unknown Most Recent Pneumonia Vaccination: never Review of Systems All Other Systems Reviewed And Are Negative: Yes Constitutional: Positive: Negative Skin: Positive: Negative Eyes: Positive: Negative ENT: Positive: Other - SEE HPI Respiratory: Positive: Negative Cardiovascular: Positive: Negative Gastrointestinal: Positive: Abdominal Pain, Vomiting Genitourinary: Positive: Negative Motor: Positive: Negative Neurovascular: Positive: Negative Musculoskeletal: Positive: Negative Neurological: Positive: Negative Psychological: Positive: Negative Is Patient Immunocompromised?: No Physical Exam Triage Information Reviewed: Yes Appearance: No Pain Distress, Well-Nourished, Ill-Appearing - MILD Vital Signs: Initial Vital Signs Temp 99.1 F 01/21/19 18:03 Pulse 56 01/21/19 18:03 Resp 18 01/21/19 18:03 BP 148/81 01/21/19 18:03 Pulse Ox 100 01/21/19 18:03 Vital Signs Reviewed: Yes Eye Exam: Normal Eyes: Positive: Conjunctiva Clear ENT: Positive: Other - Oral mucosa slightly dry. Neck: Positive: Supple Respiratory: Positive: No respiratory distress Abdomen Description: Positive: Nontender, Soft Bowel Sounds: Positive: Present Musculoskeletal: Positive: Strength Intact, ROM Intact Neurological: Positive: Alert, Muscle Tone Normal Psychological: Positive: Normal Response To Family, Age Appropriate Behavior Skin Exam: Normal Naus/Vom/Diarrhea Course/Dx - Course Course Of Treatment: Patient was given normal saline 1 L Reglan 10 mg IV and Ativan 1 mg IV in clinic he did improve. I ordered Zofran for another liter of fluid however the patient and his mother decided like to go home. Plans follow-up primary care doctor go to emergency room if worse requests or concerns. - Differential Dx/Diagnosis Provider Diagnosis: Nausea & vomiting, Dehydration Condition At Discharge: Stable Discharge ED - Sign-Out/Discharge Documenting (check all that apply): Patient Departure All imaging exams completed and their final reports reviewed: No Studies - Discharge Plan Condition: Stable Disposition: HOME Patient Education Materials: Dehydration (ED), Acute Nausea and Vomiting (ED) Referrals: Ant Lopes MD [Primary Care Provider] - Additional Instructions: FOLLOW UP WITH YOUR DOCTOR IF NOT COMPLETELY IMPROVED. GO TO THE EMERGENCY DEPARTMENT IF YOUR CONDITION WORSENS; PAIN, FEVER, DEHYDRATION, YOU FEEL ILL OR ANY QUESTIONS OR CONCERNS. - Billing Disposition and Condition Condition: STABLE Disposition: Home
[2019-01-21] MEDS ORDERED: Ondansetron INJ* 2 MG/ML VIAL IV ONE (19:40)
== END 2019-01-21 19:55 | disposition home or self-care (01) ==
LOC: UCEAST 17:51
DX: E86.0 Dehydration (principal); F17.210 Nicotine dependence, cigarettes, uncomplicated
CPT/HCPCS: 96360; 96374; 96375; 99211; G0463; J2060; J2765

== ENCOUNTER 2019-01-23 10:20 | Emergency (ER) | payer OTHER ==
[2019-01-23] MEDS ORDERED: Metoclopramide IV* 5 MG/ML 2 ML VIAL IV SLOW PU ONE (10:48)
[2019-01-23] MEDS ORDERED: diPHENhydraMINE IV* 50 MG/ML 1 ml VIAL (BENADRYL) IV ONE (10:48)
[2019-01-23] MEDS ORDERED: NS 0.9% 1000 ML** 1,000 ML BOLUS ONE ×2 (10:48→12:09)
[2019-01-23] MEDS ORDERED: Lorazepam PYXIS KEY PRN (10:49)
[2019-01-23] MEDS ORDERED: LORazepam INJ* 2 MG/ML 1 ML VIAL IV PUSH ONE (10:49)
--- NOTE | 2019-01-23 11:05 | UC ---
Abdominal Pain Male HPI - HPI Summary HPI Summary: 28 yo male with hx cyclic vomiting presents here for the second time in 72 hours with epigastric pain , nausea/vomitng and dry heaves No recent EtOH no URI ot UTI symptoms These are his typical symptoms - History of Current Complaint Chief Complaint: UCGI Stated Complaint: VOMITING Time Seen by Provider: 01/23/19 10:23 Hx Obtained From: Patient, Family/Cms Expert - MOM Onset/Duration: Gradual Onset, Lasting Days Timing: Constant Severity Initially: Moderate Severity Currently: Moderate Pain Intensity: 7 Pain Scale Used: 0-10 Numeric Location: Epigastric Radiates: No Character: Cramping Aggravating Factor(s): Nothing Alleviating Factor(s): Nothing Associated Signs And Symptoms: Positive: Nausea, Vomiting. Negative: Diaphoresis, Fever, Cough, Chest Pain, Dizzy, Back Pain, Constipation, Blood in Stool, Urinary Symptoms, Decreased Appetite, Diarrhea, Penile Discharge - Allergies/Home Medications Allergies/Adverse Reactions: Allergies Allergy/AdvReac Type Severity Reaction Status Date / Time No Known Allergies Allergy Verified 01/23/19 10:36 Home Medications: Home Medications Omeprazole CAP (NF) [Prilosec CAP* 20 MG] 20 mg PO DAILY 01/23/19 [History Confirmed 01/23/19] PMH/Surg Hx/FS Hx/Imm Hx Previously Healthy: Yes GI/ History: Other Other GI/ History: cyclic vomiting syndrome - Surgical History Surgical History: None Surgery Procedure, Year, and Place: None reported - Family History Known Family History: Positive: Unknown - pt is adopted - Social History Alcohol Use: Occasionally Alcohol Amount: "a few drinks once or twice a month" Substance Use Type: Marijuana Substance Use Comment - Amount & Last Used: 2 x per week Smoking Status (MU): Current Some Day Smoker Type: Cigarettes Amount Used/How Often: a couple per day Household Exposure Type: Cigarettes - Immunization History Most Recent Influenza Vaccination: 2013 Most Recent Tetanus Shot: unknown Most Recent Pneumonia Vaccination: never Review of Systems All Other Systems Reviewed And Are Negative: Yes Constitutional: Positive: Negative Skin: Positive: Negative Eyes: Positive: Negative ENT: Positive: Negative Respiratory: Positive: Negative Cardiovascular: Positive: Negative Gastrointestinal: Positive: Abdominal Pain, Nausea Genitourinary: Positive: Negative Motor: Positive: Negative Neurovascular: Positive: Negative Musculoskeletal: Positive: Negative Neurological: Positive: Negative Psychological: Positive: Negative Physical Exam Triage Information Reviewed: Yes Appearance: Well-Appearing, No Pain Distress, Thin Vital Signs: Initial Vital Signs Temp 97.9 F 01/23/19 10:27 Pulse 63 01/23/19 10:27 Resp 20 01/23/19 10:27 BP 143/76 01/23/19 10:27 Pulse Ox 99 01/23/19 10:27 Vital Signs Reviewed: Yes Eyes: Positive: Conjunctiva Clear ENT: Positive: Hearing grossly normal. Negative: Nasal congestion, Nasal drainage, Trismus, Muffled voice, Hoarse voice Dental Exam: Normal Neck: Positive: Supple, Nontender, No Lymphadenopathy Respiratory: Positive: Lungs clear, Normal breath sounds, No respiratory distress, No accessory muscle use Cardiovascular: Positive: RRR, No Murmur Abdomen Description: Positive: Nontender, No Organomegaly, Soft. Negative: CVA Tenderness (R), CVA Tenderness (L) Bowel Sounds: Positive: Present Musculoskeletal: Positive: ROM Intact, No Edema Neurological: Positive: Alert Psychological Exam: Normal Skin Exam: Normal Re-Evaluation - Re-Evaluation First Eval Re-Evaluation Time: 12:56 Change: Improved - sleeping, no dry heaves or vomiting here Abd Pain Male Course/Dx - Differential Dx/Clinical Impression Provider Diagnosis: Acute vomiting Discharge ED - Sign-Out/Discharge Documenting (check all that apply): Patient Departure All imaging exams completed and their final reports reviewed: No Studies - Discharge Plan Condition: Stable Disposition: HOME Prescriptions: Promethazine TAB* [Phenergan TAB*] 25 mg PO Q6H PRN #20 tab PRN Reason: Nausea Patient Education Materials: Acute Nausea and Vomiting (ED) Referrals: Jennifer Lawson DO [Primary Care Provider] - 2 Days - Billing Disposition and Condition Condition: STABLE Disposition: Home
[2019-01-23] MEDS ORDERED: Lorazepam PYXIS KEY ONE (11:14)
[2019-01-23 13:51] VITALS: BP 128/60
== END 2019-01-23 13:45 | disposition home or self-care (01) ==
LOC: UCEAST 10:20
DX: R11.2 Nausea with vomiting, unspecified (principal); R10.13 Epigastric pain; Z72.0 Tobacco use
CPT/HCPCS: 96360; 96361; 96374; 96376; 99212; G0463; J1200; J2060; J2765

== ENCOUNTER 2019-01-25 08:10 | Emergency (ER) | payer OTHER ==
[2019-01-25] MEDS ORDERED: Metoclopramide IV* 5 MG/ML 2 ML VIAL IV ONE (08:31)
[2019-01-25] MEDS ORDERED: Lorazepam PYXIS KEY PRN (08:31)
[2019-01-25] MEDS ORDERED: NS 0.9% 1000 ML** 1,000 ML IV ONE (08:31)
[2019-01-25] MEDS ORDERED: LORazepam INJ* 2 MG/ML 1 ML VIAL IV PUSH ONE (08:31)
[2019-01-25 09:17] LABS: ABS Lymphocytes 2.4 10^3/ul (1.0-4.8); ABS Monocytes 0.6 10^3/ul (0-0.8); Eosinophil % 0.4 %; Hematocrit 46 % (42-52); Hemoglobin 15.9 g/dL (14.0-18.0); Lymphocyte % 34.3 %; Mean Corpuscular HGB Conc 35 g/dL (31-36); Mean Corpuscular Hemoglobin 30 pg (27-31); Mean Corpuscular Volume 87 fL (80-94); Mean Platelet Volume 8.7 fL (7.4-10.4); Nucleated Red Blood Cells % 0.1; Platelet Count 217 10^3/uL (150-450); Red Blood Count 5.22 10^6 /uL (4.18-5.48); Red Cell Distribution Width 13 % (10-15)
[2019-01-25 09:30] LABS: Albumin 4.6 g/dL (3.2-5.2); Albumin/Globulin Ratio 2.1 (1-3); BUN/Creatinine Ratio 22.4 (8-20); Calcium 9.1 mg/dL (8.6-10.3); EGFR African American 111.9 (>60); EGFR Non-African American 92.5 (>60); Globulin 2.2 g/dL (2-4); Potassium 3.3 mmol/L (3.5-5.0); Total Bilirubin 0.8 mg/dL (0.2-1.0); Total Protein 6.8 g/dL (6.4-8.9)
--- NOTE | 2019-01-25 10:13 | ED ---
Abdominal Pain/Female - HPI Summary HPI Summary: Patient is a 28-year-old male who presents emergency department for nausea and vomiting but returned this morning. Patient was seen in the emergency department and demanding care numerous times several years for nausea and vomiting. Patient notes he smokes THC on a regular basis. Patient has seen GI specialist in the past and has had negative Scopes per pt.'s mother. Sxs are moderate in severity. No current modifying factors. - History of Current Complaint Chief Complaint: EDNauseaVomitDiarrh Stated Complaint: VOMITING AND PER PT Time Seen by Provider: 01/25/19 08:23 Hx Obtained From: Patient, Family/Junior Software Developer Pain Intensity: 8 Allergies/Adverse Reactions: Allergies Allergy/AdvReac Type Severity Reaction Status Date / Time No Known Allergies Allergy Verified 01/23/19 10:36 PMH/Surg Hx/FS Hx/Imm Hx Previously Healthy: Yes Endocrine/Hematology History: Denies: Hx Diabetes, Hx Thyroid Disease Cardiovascular History: Denies: Hx Congestive Heart Failure, Hx Hypertension Respiratory History: Reports: Hx Asthma Denies: Hx Chronic Obstructive Pulmonary Disease (COPD) GI History: Reports: Other GI Disorders - cyclical vomiting and abdominal migraines Denies: Hx Ulcer History: Denies: Hx Renal Disease Musculoskeletal History: Denies: Hx Arthritis, Hx Osteoporosis Sensory History: Denies: Hx Cataracts, Hx Contacts or Glasses, Hx Glaucoma, Hx Hearing Aid Opthamlomology History: Denies: Hx Cataracts, Hx Contacts or Glasses, Hx Glaucoma Psychiatric History: Reports: Hx Attention Deficit Hyperactivity Disorder - Cancer History Cancer Type, Location and Year: None reported - Surgical History Surgery Procedure, Year, and Place: None reported Infectious Disease History: No Infectious Disease History: Denies: Hx Hepatitis, Hx Human Immunodeficiency Virus (HIV), Traveled Outside the [place] in Last 30 Days - Family History Known Family History: Positive: Unknown - pt is adopted, Non-Contributory - Social History Occupation: Employed Full-time Lives: With Family Alcohol Use: Occasionally Alcohol Amount: "a few drinks once or twice a month" Hx Substance Use: Yes Substance Use Type: Reports: Marijuana Substance Use Comment - Amount & Last Used: 2 x per week Hx Tobacco Use: Yes Smoking Status (MU): Current Some Day Smoker Type: Cigarettes Amount Used/How Often: a couple per day Review of Systems Constitutional: Negative Negative: Fever, Chills Cardiovascular: Negative Respiratory: Negative Positive: Abdominal Pain, Vomiting, Nausea. Negative: Diarrhea Neurological: Negative All Other Systems Reviewed And Are Negative: Yes Physical Exam Triage Information Reviewed: Yes Vital Signs On Initial Exam: Initial Vitals Temp Pulse Resp BP Pulse Ox 97.6 F 61 18 136/100 100 01/25/19 08:12 01/25/19 08:12 01/25/19 08:12 01/25/19 08:12 01/25/19 08:12 Vital Signs Reviewed: Yes Appearance: Positive: Well-Appearing - Pt. lying in bed in NAD. Mother present. Skin: Positive: Warm, Dry Head/Face: Positive: Normal Head/Face Inspection Eyes: Positive: Normal, EOMI Neck: Positive: Supple Respiratory/Lung Sounds: Positive: Clear to Auscultation, Breath Sounds Present Cardiovascular: Positive: Normal, RRR Abdomen Description: Positive: Other: - Abd. is soft with mild pain on palpation over epigastrium. No guarding or rebound tenderness. Musculoskeletal: Positive: Normal, Strength/ROM Intact Neurological: Positive: Normal, CN Intact II-III Psychiatric: Positive: Affect/Mood Appropriate Diagnostics - Vital Signs Vital Signs Temp Pulse Resp BP Pulse Ox 01/25/19 09:00 52 99 01/25/19 08:39 20 01/25/19 08:32 62 100 01/25/19 08:12 97.6 F 61 18 136/100 100 - Laboratory Lab Results: Lab Results 01/25/19 01/25/19 Range/Units 08:48 08:48 WBC 7.0 (3.5-10.8) 10^3/uL RBC 5.22 (4.18-5.48) 10^6 /uL Hgb 15.9 (14.0-18.0) g/dL Hct 46 (42-52) % MCV 87 (80-94) fL MCH 30 (27-31) pg MCHC 35 (31-36) g/dL RDW 13 (10-15) % Plt Count 217 (150-450) 10^3/uL MPV 8.7 (7.4-10.4) fL Neut % (Auto) 56.7 % Lymph % (Auto) 34.3 % [place] % (Auto) 8.3 % Eos % (Auto) 0.4 % Baso % (Auto) 0.3 % Absolute Neuts (auto) 4.0 (1.5-7.7) 10^3/ul Absolute Lymphs (auto) 2.4 (1.0-4.8) 10^3/ul Absolute Monos (auto) 0.6 (0-0.8) 10^3/ul Absolute Eos (auto) 0.0 (0-0.6) 10^3/ul Absolute Basos (auto) 0.0 (0-0.2) 10^3/ul Absolute Nucleated RBC 0.0 10^3/ul Nucleated RBC % 0.1 Sodium 140 (135-145) mmol/L Potassium 3.3 L (3.5-5.0) mmol/L Chloride 106 (101-111) mmol/L Carbon Dioxide 22 (22-32) mmol/L Anion Gap 12 H (2-11) mmol/L BUN 22 (6-24) mg/dL Creatinine 0.98 (0.67-1.17) mg/dL Est GFR ( Amer) 111.9 (>60) Est GFR (Non-Af Amer) 92.5 (>60) BUN/Creatinine Ratio 22.4 H (8-20) Glucose 112 H (70-100) mg/dL Calcium 9.1 (8.6-10.3) mg/dL Total Bilirubin 0.80 (0.2-1.0) mg/dL AST 13 (13-39) U/L ALT 12 (7-52) U/L Alkaline Phosphatase 65 (34-104) U/L Total Protein 6.8 (6.4-8.9) g/dL Albumin 4.6 (3.2-5.2) g/dL Globulin 2.2 (2-4) g/dL Albumin/Globulin Ratio 2.1 (1-3) Lipase 27 (11.0-82.0) U/L Result Diagrams: 01/25/19 08:48 01/25/19 08:48 Lab Statement: Any lab studies that have been ordered have been reviewed, and results considered in the medical decision making process. Abdominal Pain Fem Course/Dx - Course Course Of Treatment: Patient presenting with intractable vomiting. He is afebrile with a benign abdominal exam. Patient was given IV fluids, Ativan and Reglan. On reexamination patient is resting comfortably. He is tolerating crackers and water. Blood work is unremarkable. Patient prescribed Phenergan yesterday and advised him to take as directed for nausea and vomiting. To call family doctor today for close follow-up appointment. Return to the ER symptoms change or worsen. Patient advised to avoid smoking marijuana. Patient understands and agrees with plan. - Diagnoses Differential Diagnosis: Positive: Gall Bladder Disease, Hepatitis, Irritable Bowel Syndrome, Pancreatitis, Peptic Ulcer Disease Provider Diagnoses: Cyclical vomiting Discharge ED - Sign-Out/Discharge Documenting (check all that apply): Patient Departure Patient Received Moderate/Deep Sedation with Procedure: No - Discharge Plan Condition: Improved Disposition: HOME Patient Education Materials: Cyclic Vomiting Syndrome (ED) Forms: *Work Release Referrals: Jennifer Lawson DO [Primary Care Provider] - Additional Instructions: Schedule a follow up appointment with your PCP as soon as possible Take antivomiting medication you were prescribed yesterday as directed Avoid smoking marijuana Return to ER if symptoms change or worsen - Billing Disposition and Condition Condition: IMPROVED Disposition: Home
[2019-01-25 11:15] VITALS: BP 144/94
== END 2019-01-25 11:13 | disposition home or self-care (01) ==
LOC: ED 08:10
DX: G43.A0 Cyclical vomiting, in migraine, not intractable (principal); R10.9 Unspecified abdominal pain; F90.9 Attention-deficit hyperactivity disorder, unspecified type; J45.909 Unspecified asthma, uncomplicated; Z72.0 Tobacco use; Z79.899 Other long term (current) drug therapy
CPT/HCPCS: 36415; 80053; 83690; 85025; 96361; 96374; 96375; 99282; J2060; J2765

== ENCOUNTER 2019-03-28 02:50 | Emergency (ER) | payer BC, OTHER ==
[2019-03-28] MEDS ORDERED: NS 0.9% 1000 ML** 1,000 ML IV ONE (02:56)
[2019-03-28] MEDS ORDERED: Ondansetron INJ* 2 MG/ML VIAL IV ONE (02:56)
[2019-03-28 03:14] LABS: ABS Basophils 0.1 10^3/ul (0-0.2); ABS Lymphocytes 1.6 10^3/ul (1.0-4.8); ABS Monocytes 0.5 10^3/ul (0-0.8); ABS Neutrophils 8.1 10^3/ul (1.5-7.7); Eosinophil % 0.3 %; Hematocrit 48 % (42-52); Hemoglobin 16.3 g/dL (14.0-18.0); Lymphocyte % 15.4 %; Mean Corpuscular HGB Conc 34 g/dL (31-36); Mean Corpuscular Hemoglobin 30 pg (27-31); Mean Corpuscular Volume 89 fL (80-94); Mean Platelet Volume 8.7 fL (7.4-10.4); Platelet Count 215 10^3/uL (150-450); Red Blood Count 5.42 10^6 /uL (4.18-5.48); Red Cell Distribution Width 14 % (10-15); White Blood Count 10.3 10^3/uL (3.5-10.8)
--- NOTE | 2019-03-28 03:17 | ED ---
Abdominal Pain/Male - HPI Summary HPI Summary: This patient is a 28 year old M presenting to ED with a chief complaint of nausea and vomiting since 6 hours ago. Patient also reports abdominal pain. Patient had pizza for dinner last night. He is not having diarrhea. Patient reports this happens every few months (cyclical vomiting) and he states the only thing that helps is anti-nausea medicine and Ativan. Patient took Reglan and Ativan at home and they did not help this time. Patient occasionally uses alcohol, tobacco, and marijuana, but has not used any today. The patient rates the pain 7/10 in severity. Symptoms aggravated by nothing. Symptoms alleviated by nothing. Patient denies fever. - History of Current Complaint Chief Complaint: EDNauseaVomitDiarrh Stated Complaint: NAUSEA PER PT Time Seen by Provider: 03/28/19 02:56 Hx Obtained From: Patient Onset/Duration: Sudden Onset, Lasting Hours - Since 6 hours [employer] [place], Still Present Timing: Constant Severity Initially: Moderate Severity Currently: Moderate Pain Intensity: 7 Pain Scale Used: 0-10 Numeric Location: Diffuse Aggravating Factor(s): Nothing Alleviating Factor(s): Nothing Associated Signs And Symptoms: Positive: Nausea, Vomiting. Negative: Fever, Diarrhea - Allergies/Home Medications Allergies/Adverse Reactions: Allergies Allergy/AdvReac Type Severity Reaction Status Date / Time No Known Allergies Allergy Verified 03/28/19 03:32 Home Medications: Home Medications Metoclopramide TAB* [Reglan TAB*] 10 mg PO Q6H PRN 03/28/19 [History Confirmed 03/28/19] PMH/Surg Hx/FS Hx/Imm Hx Endocrine/Hematology History: Denies: Hx Diabetes, Hx Thyroid Disease Cardiovascular History: Denies: Hx Congestive Heart Failure, Hx Hypertension Respiratory History: Reports: Hx Asthma Denies: Hx Chronic Obstructive Pulmonary Disease (COPD) GI History: Reports: Other GI Disorders - cyclical vomiting and abdominal migraines Denies: Hx Ulcer History: Denies: Hx Renal Disease Musculoskeletal History: Denies: Hx Arthritis, Hx Osteoporosis Sensory History: Denies: Hx Cataracts, Hx Contacts or Glasses, Hx Glaucoma, Hx Hearing Aid Opthamlomology History: Denies: Hx Cataracts, Hx Contacts or Glasses, Hx Glaucoma Psychiatric History: Reports: Hx Attention Deficit Hyperactivity Disorder - Cancer History Cancer Type, Location and Year: None reported - Surgical History Surgery Procedure, Year, and Place: None reported Infectious Disease History: No Infectious Disease History: Denies: Hx Hepatitis, Hx Human Immunodeficiency Virus (HIV), Traveled Outside the [place] in Last 30 Days - Family History Known Family History: Positive: Unknown - pt is adopted - Social History Alcohol Use: Occasionally Alcohol Amount: "a few drinks once or twice a month" Hx Substance Use: Yes Substance Use Type: Reports: Marijuana Substance Use Comment - Amount & Last Used: 2 x per week Hx Tobacco Use: Yes Smoking Status (MU): Current Some Day Smoker Type: Cigarettes Amount Used/How Often: a couple per day Review of Systems - ROS Summary Review of Systems Summary: Home Medications Medication Instructions Recorded Confirmed Type Amphetamine/Dextroamph ER(NF) 20 mg PO DAILY 04/16/18 09/30/18 History [Adderal XR (NF)] LORazepam [Ativan 1 MG TAB] 1 mg PO DAILY 08/04/18 09/30/18 History Albuterol Sulfate [Albuterol 2 puff INH Q4H PRN 09/30/18 09/30/18 History Sulfate Hfa] Omeprazole CAP (NF) [Prilosec CAP* 20 mg PO DAILY 01/23/19 01/23/19 History 20 MG] Promethazine TAB* [Phenergan TAB*] 25 mg PO Q6H PRN #20 tab 01/23/19 Rx Negative: Fever Positive: Abdominal Pain, Vomiting, Nausea. Negative: Diarrhea All Other Systems Reviewed And Are Negative: Yes Physical Exam - Summary Physical Exam Summary: General: Thin, mildly ill-appearing male. HEENT: Normocephalic, Atraumatic. Eyes: Conjuctiva normal, PERRL. Ears: TMs within normal limits. Nares: (-) discharge, (-) erythema. Oropharynx: Clear, mucous membranes moist, (-) exudates. Neck: Soft, FROM, (-) lymphadenopathy, (-) thyromegaly, (-) JVD. Cardiovascular: Normal sinus rhythm, (-) murmur. Lungs: Clear to auscultation bilaterally (-) wheezes, (-) rales, (-) rhonchi. Abdomen: Soft, non-tender, non-distended, (-) organomegaly, normal bowel sounds. Back: (-) CVA tenderness Extremities: No edema. Skin: Warm, dry, (-) rash. Neuro: Alert and oriented x3, no focal deficits. Psychiatric: Odd affect. Triage Information Reviewed: Yes Vital Signs On Initial Exam: Initial Vitals Temp Pulse Resp BP Pulse Ox 96.4 F 53 20 153/75 100 03/28/19 02:51 03/28/19 02:51 03/28/19 02:51 03/28/19 02:51 03/28/19 02:51 Vital Signs Reviewed: Yes Procedures - Sedation Patient Received Moderate/Deep Sedation with Procedure: No Diagnostics - Vital Signs Vital Signs Temp Pulse Resp BP Pulse Ox 03/28/19 02:51 96.4 F 53 20 153/75 100 - Laboratory Result Diagrams: 03/28/19 03:08 03/28/19 03:08 Lab Statement: Any lab studies that have been ordered have been reviewed, and results considered in the medical decision making process. Re-Evaluation - Re-Evaluation First Eval Re-Evaluation Time: 05:56 Change: Improved Comment: Patient reports feeling better and would like to go home. I have discussed results with the patient and patient's vomiting is resolved. Discussed symptoms that warrant immediate return to ED. Second Eval Re-Evaluation Time: 06:03 Change: Worse Comment: Upon preparation for discharge, patient began vomiting again. I will give Ativan and hold discharge until patient feels better again. Third Eval Re-Evaluation Time: 06:46 Comment: Patient is still feeling nauseous despite Ativan administration. Will- sign out patient for further monitoring. Abdominal Pain Male Course/Dx - Course Course Of Treatment: 28-year-old male with vomiting. Has admitted cyclical vomiting. Denies frequent marijuana use. Patient did not get significant relief from his vomiting from Protonix, Zofran, fluids. Reglan. Patient received Ativan and was sleeping soundly unable to be aroused for discharge. Signed out at change of shift pending discharge. - Diagnoses Provider Diagnoses: Tobacco use, Cyclical vomiting Discharge ED - Sign-Out/Discharge Documenting (check all that apply): Sign-Out Patient Signing out patient TO: Danny Echeverria - Discharge Plan Condition: Stable Patient Education Materials: Cyclic Vomiting Syndrome (ED) Referrals: Jennifer Lawson DO [Primary Care Provider] - 3 Days Additional Instructions: Please follow up with your primary care physician within three days. Please return to ED for any new or worsening symptoms. - Billing Disposition and Condition Condition: STABLE - Attestation Statements Document Initiated by Francisco: Yes Documenting Scribe: Robb Ramsey Provider For Whom Francisco is Documenting (Include Credential): Tarah Hearn MD Scribe Attestation: IRobb, scribed for Tarah Hearn MD on 03/28/19 at 0648. Scribe Documentation Reviewed: Yes Provider Attestation: The documentation as recorded by the Robb lerner accurately reflects the service I personally performed and the decisions made by me, Tarah Hearn MD Status of Scribe Document: Viewed
[2019-03-28] MEDS ORDERED: Pantoprazole IV* 40 MG IV ONE (03:21)
[2019-03-28 03:34] LABS: ALT 23 U/L (7-52); AST 17 U/L (13-39); Albumin 4.8 g/dL (3.2-5.2); Albumin/Globulin Ratio 1.7 (1-3); Alkaline Phosphatase 69 U/L (34-104); Amylase 42 U/L (29-103); Anion Gap 8 mmol/L (2-11); BUN/Creatinine Ratio 25.6 (8-20); Blood Urea Nitrogen 23 mg/dL (6-24); C Reactive Protein 2.03 mg/L (<8.01); CO2 Carbon Dioxide 25 mmol/L (22-32); Calcium 10.3 mg/dL (8.6-10.3); Chloride 105 mmol/L (101-111); EGFR African American 123.4 (>60); Globulin 2.8 g/dL (2-4); Glucose 161 mg/dL (70-100); Potassium 4.1 mmol/L (3.5-5.0); Sodium 138 mmol/L (135-145); Total Protein 7.6 g/dL (6.4-8.9)
[2019-03-28 03:54] LABS: Alcohol < 10 mg/dL (<10)
[2019-03-28 03:59] LABS: Urine Appearance Clear; Urine Bilirubin Negative (Negative); Urine Blood Negative (Negative); Urine Color Yellow; Urine Glucose Negative (Negative); Urine Ketones 2+ (Negative); Urine Nitrite Negative (Negative); Urine Protein Negative (Negative); Urine Specific Gravity 1.028 (1.010-1.030); Urine Urobilinogen Negative (Negative)
[2019-03-28 04:16] LABS: Urine Benzodiazepine Screen None Detected (None Detect); Urine Opiates Screen None Detected (None Detect)
[2019-03-28] MEDS ORDERED: Metoclopramide IV* 5 MG/ML 2 ML VIAL IV ONE (04:50)
[2019-03-28] MEDS ORDERED: Lorazepam PYXIS KEY PRN (06:02)
[2019-03-28] MEDS ORDERED: LORazepam INJ* 2 MG/ML 1 ML VIAL IM ONE (06:02)
[2019-03-28] MEDS ORDERED: Lorazepam PYXIS KEY ONE (06:05)
--- NOTE | 2019-03-28 07:12 | ED ---
Progress - Progress Note Progress Note: The pt is sign out from Dr. Hearn at the 69903/28/2019 shift change pending relief of symptoms and disposition. The pt will be discharged home with PCP follow up. Re-Evaluation - Re-Evaluation First Eval Re-Evaluation Time: 05:56 Change: Improved Comment: Patient reports feeling better and would like to go home. I have discussed results with the patient and patient's vomiting is resolved. Discussed symptoms that warrant immediate return to ED. Second Eval Re-Evaluation Time: 06:03 Change: Worse Comment: Upon preparation for discharge, patient began vomiting again. I will give Ativan and hold discharge until patient feels better again. Third Eval Re-Evaluation Time: 06:46 Comment: Patient is still feeling nauseous despite Ativan administration. Will- sign out patient for further monitoring. Fourth Eval Re-Evaluation Time: 08:05 Change: Improved Comment: pt has no further episodes of vomiting. AAOx3, ambulated. Course/Dx - Course Course Of Treatment: 28-year-old male with vomiting. Has admitted cyclical vomiting. Denies frequent marijuana use. Patient did not get significant relief from his vomiting from Protonix, Zofran, fluids. Reglan. Patient received Ativan and was sleeping soundly unable to be aroused for discharge. Signed out at change of shift pending discharge. The pt is sign out from Dr. Hearn at the 69903/28/2019 shift change pending relief of symptoms and disposition. The pt will be discharged home with PCP follow up. - Diagnoses Provider Diagnoses: Tobacco use, Cyclical vomiting Discharge ED - Sign-Out/Discharge Documenting (check all that apply): Patient Departure - discharge - Discharge Plan Condition: Stable Disposition: HOME Patient Education Materials: Cyclic Vomiting Syndrome (ED) Referrals: Jennifer Lawson DO [Primary Care Provider] - 3 Days Additional Instructions: You were seen in the emergency department for cyclical vomiting. If any studies were not completed at the time of discharge you will be called with the relevant results. Please follow up with your primary care doctor in the next 2-3 days and return to the emergency department for worsening or concerning symptoms. It was a pleasure taking care of you today. - Billing Disposition and Condition Condition: STABLE Disposition: Home - Attestation Statements Document Initiated by Scribe: Yes Documenting Scribe: Forest Carbone Provider For Whom Scribe is Documenting (Include Credential): Danny Echeverria MD Scribe Attestation: I, Forest Carbone, scribed for Danny Echeverria MD on 03/28/19 at 0832. Scribe Documentation Reviewed: Yes Provider Attestation: The documentation as recorded by the scribe, Forest Carbone accurately reflects the service I personally performed and the decisions made by me, Danny Echeverria MD Status of Scribe Document: Viewed
[2019-03-28 08:49] VITALS: BP 157/88
== END 2019-03-28 08:46 | disposition home or self-care (01) ==
LOC: ED 02:50
DX: R11.15 Cyclical vomiting syndrome unrelated to migraine (principal); F17.210 Nicotine dependence, cigarettes, uncomplicated; F90.9 Attention-deficit hyperactivity disorder, unspecified type; J45.909 Unspecified asthma, uncomplicated; Z79.899 Other long term (current) drug therapy
CPT/HCPCS: 36415; 80053; 80307; 80320; 81003; 82150; 83605; 83690; 85025; 86140; 96361; 96372; 96374; 96375; 99283; G0480; J2060; J2405; J2765

== ENCOUNTER 2019-03-30 03:14 | Emergency (ER) | payer BC, OTHER ==
[2019-03-30] MEDS ORDERED: Lorazepam PYXIS KEY PRN (03:34)
[2019-03-30] MEDS ORDERED: Metoclopramide IV* 5 MG/ML 2 ML VIAL IV ONE (03:34)
[2019-03-30] MEDS ORDERED: LORazepam INJ* 2 MG/ML 1 ML VIAL IV PUSH ONE (03:34)
[2019-03-30] MEDS ORDERED: NS 0.9% 1000 ML** 2,000 ML IV ONE (03:37)
--- NOTE | 2019-03-30 03:41 | ED ---
Abdominal Pain/Male - HPI Summary HPI Summary: Patient is a 28 y/o M presenting to the ED for a chief complaint of nausea and vomiting for the last several days. Patient is present with his mother. Patient also reports diffuse abdominal pain, but denies fever or diarrhea. On triage, patient rates the abdominal pain as 8/10 in severity. On 03/27/19, patient was seen at [facility] for the same symptoms. Patients mother states that Zofran does not relieve that patients symptoms, but Ativan gives the patient some relief. Patient has a PMHx of cyclic vomiting. - History of Current Complaint Chief Complaint: EDNauseaVomitDiarrh Stated Complaint: VOMITTING PER PT Hx Obtained From: Patient, Family/Health Safety Manager - Mother Onset/Duration: Sudden Onset, Lasting Days, Still Present Timing: Intermittent, Lasting Days Severity Initially: Severe Severity Currently: Severe Pain Intensity: 8 Pain Scale Used: 0-10 Numeric Location: Diffuse Radiates: No Aggravating Factor(s): Nothing Alleviating Factor(s): Other: - Some relief with Ativan Associated Signs And Symptoms: Positive: Nausea, Vomiting. Negative: Fever, Diarrhea - Allergies/Home Medications Allergies/Adverse Reactions: Allergies Allergy/AdvReac Type Severity Reaction Status Date / Time No Known Allergies Allergy Verified 03/30/19 03:19 PMH/Surg Hx/FS Hx/Imm Hx Previously Healthy: Yes Endocrine/Hematology History: Denies: Hx Diabetes, Hx Thyroid Disease Cardiovascular History: Denies: Hx Congestive Heart Failure, Hx Hypercholesterolemia, Hx Hypertension Respiratory History: Reports: Hx Asthma Denies: Hx Chronic Obstructive Pulmonary Disease (COPD) GI History: Reports: Other GI Disorders - cyclical vomiting and abdominal migraines Denies: Hx Ulcer History: Denies: Hx Renal Disease Musculoskeletal History: Denies: Hx Arthritis, Hx Osteoporosis Sensory History: Denies: Hx Cataracts, Hx Contacts or Glasses, Hx Glaucoma, Hx Legally Blind, Hx Deafness, Hx Hearing Aid Opthamlomology History: Denies: Hx Cataracts, Hx Contacts or Glasses, Hx Glaucoma, Hx Legally Blind EENT History: Denies: Hx Deafness Psychiatric History: Reports: Hx Attention Deficit Hyperactivity Disorder - Cancer History Cancer Type, Location and Year: None reported - Surgical History Surgical History: None Surgery Procedure, Year, and Place: None reported Infectious Disease History: No Infectious Disease History: Denies: Hx Hepatitis, Hx Human Immunodeficiency Virus (HIV), Traveled Outside the [place] in Last 30 Days - Family History Known Family History: Positive: Unknown - pt is adopted - Social History Occupation: Employed Full-time Lives: With Family Alcohol Use: Occasionally Alcohol Amount: "a few drinks once or twice a month" Hx Substance Use: Yes Substance Use Type: Reports: Marijuana Substance Use Comment - Amount & Last Used: 2 x per week Hx Tobacco Use: Yes Smoking Status (MU): Current Some Day Smoker Type: Cigarettes Amount Used/How Often: a couple per day Review of Systems Negative: Fever Positive: Abdominal Pain - Diffuse, Vomiting, Nausea. Negative: Diarrhea All Other Systems Reviewed And Are Negative: Yes Physical Exam - Summary Physical Exam Summary: Appearance: Well-appearing, Well-nourished, lying in bed comfortable Skin: Warm, dry, no obvious rash Eyes: sclera anicteric, no conjunctival pallor ENT: mucous membranes moist Neck: deferred Respiratory: No signs of respiratory distress Cardiovascular: Appears well perfused, pulses are nml Abdomen: deferred Musculoskeletal: Moving all 4 extremities without obvious discomfort Neurological: Awake and alert, mentation is normal, speech is fluent and appropriate Psychiatric: affect is normal, does not appear anxious or depressed Triage Information Reviewed: Yes Vital Signs On Initial Exam: Initial Vitals Temp Pulse Resp BP Pulse Ox 97.9 F 57 18 123/84 100 03/30/19 03:16 03/30/19 03:16 03/30/19 03:16 03/30/19 03:16 03/30/19 03:16 Vital Signs Reviewed: Yes Procedures - Sedation Patient Received Moderate/Deep Sedation with Procedure: No Diagnostics - Vital Signs Vital Signs Temp Pulse Resp BP Pulse Ox 03/30/19 03:16 97.9 F 57 18 123/84 100 - Laboratory Lab Statement: Any lab studies that have been ordered have been reviewed, and results considered in the medical decision making process. Re-Evaluation - Re-Evaluation First Re-Evaluation Time: 05:35 Change: Improved Comment: At 05:35, patient feels better and is sleepy. Abdominal Pain Male Course/Dx - Course Course Of Treatment: Patient is a 28 y/o M presenting to the ED for a chief complaint of nausea and vomiting for the last several days. Patient is present with his mother. Patient also reports diffuse abdominal pain, but denies fever or diarrhea. On triage, patient rates the abdominal pain as 8/10 in severity. On 03/27/19, patient was seen at [facility] for the same symptoms. Patients mother states that Zofran does not relieve that patients symptoms, but Ativan gives the patient some relief. Patient has a PMHx of cyclic vomiting. On exam, unremarkable findings. In the ED course, patient was given lorazepam 2 mg IV PUSH, metoclopramide 10 mg IV, and fluids. At 05:35, patient feels better and is sleepy. Patient will be discharged with a diagnosis of cyclic vomiting syndrome exacerbation. Follow up with PCP in 2 days. - Diagnoses Provider Diagnoses: Cyclic vomiting syndrome Discharge ED - Sign-Out/Discharge Documenting (check all that apply): Patient Departure - Discharge - Discharge Plan Condition: Improved Disposition: HOME Prescriptions: LORazepam TAB(*) [Ativan 1 MG TAB (*)] 1 mg PO TID PRN #15 tab MDD 3 PRN Reason: Nausea Metoclopramide TAB* [Reglan TAB*] 10 mg PO Q6H PRN #15 tab PRN Reason: Nausea Patient Education Materials: Cyclic Vomiting Syndrome (ED) Referrals: Jennifer Lawson DO [Primary Care Provider] - - Billing Disposition and Condition Condition: IMPROVED Disposition: Home - Attestation Statements Document Initiated by Francisco: Yes Documenting Scribe: Jacki Wayne Provider For Whom Francisco is Documenting (Include Credential): Matteo Muro MD Scribe Attestation: Jacki Marino, scribed for Matteo Muro MD on 04/02/19 at 1834. Scribe Documentation Reviewed: Yes Provider Attestation: The documentation as recorded by the Jacki lerner accurately reflects the service I personally performed and the decisions made by me, Matteo Muro MD Status of Scribe Document: Viewed
[2019-03-30 07:16] VITALS: BP 133/81
== END 2019-03-30 07:15 | disposition home or self-care (01) ==
LOC: ED 03:14
DX: R11.15 Cyclical vomiting syndrome unrelated to migraine (principal); R10.84 Generalized abdominal pain; Z72.0 Tobacco use
CPT/HCPCS: 96361; 96374; 96375; 99282; J2060; J2765

== ENCOUNTER 2019-08-13 10:28 | Emergency (ER) | payer OTHER ==
[2019-08-13] MEDS ORDERED: NS 0.9% 1000 ML** 1,000 ML IV ONE (10:51)
[2019-08-13] MEDS ORDERED: Al Hydrox/Mg Hydrox/Simet LIQ* 30 ML UDC PO ONE (10:51)
[2019-08-13] MEDS ORDERED: Metoclopramide IV* 5 MG/ML 2 ML VIAL IV ONE (10:51)
[2019-08-13] MEDS ORDERED: Lidocaine 2% VISCOUS* 15 ML UDC PO ONE (10:51)
--- NOTE | 2019-08-13 10:56 | ED ---
Abdominal Pain/Male - HPI Summary HPI Summary: Patient is a 28-year-old male who presents emergency department for nausea and vomiting and upper abdominal pain that started yesterday. Patient hasn't seen in the ER numerous times for similar symptoms and has a diagnosis of cyclical vomiting. Patient has seen GI in the past and has had negative Scopes. Patient states he still occasionally smoking marijuana. Drinks alcohol occasionally. Patient states that he tried taking 1 mg of Ativan this morning without improvement of symptoms. Patient states he's vomited about 15 times today and has had mild diarrhea. Otherwise denies past medical history. Denies fever, chills, cough, shortness of breath, urinary symptoms. Symptoms are moderate in severity. No current modifying factors. - History of Current Complaint Chief Complaint: EDNauseaVomitDiarrh Stated Complaint: VOMITING PER PT Time Seen by Provider: 08/13/19 10:33 Hx Obtained From: Patient Pain Intensity: 8 - Allergies/Home Medications Allergies/Adverse Reactions: Allergies Allergy/AdvReac Type Severity Reaction Status Date / Time No Known Allergies Allergy Verified 08/13/19 10:31 Home Medications: Home Medications Albuterol HFA INHALER* [Ventolin HFA Inhaler*] 2 puff INH Q4H PRN 08/13/19 [ History Confirmed 08/13/19] Lorazepam INTENSOL CONC.(NF) [Ativan Intensol (NF)] 0.5 - 1 ml PO .Q6-8H PRN [History Confirmed 08/13/19] PMH/Surg Hx/FS Hx/Imm Hx Previously Healthy: Yes Endocrine/Hematology History: Denies: Hx Diabetes, Hx Thyroid Disease Cardiovascular History: Denies: Hx Congestive Heart Failure, Hx Hypercholesterolemia, Hx Hypertension Respiratory History: Reports: Hx Asthma Denies: Hx Chronic Obstructive Pulmonary Disease (COPD) GI History: Reports: Other GI Disorders - cyclical vomiting and abdominal migraines Denies: Hx Ulcer History: Denies: Hx Renal Disease Musculoskeletal History: Denies: Hx Arthritis, Hx Osteoporosis Sensory History: Denies: Hx Cataracts, Hx Contacts or Glasses, Hx Glaucoma, Hx Legally Blind, Hx Deafness, Hx Hearing Aid Opthamlomology History: Denies: Hx Cataracts, Hx Contacts or Glasses, Hx Glaucoma, Hx Legally Blind Psychiatric History: Reports: Hx Attention Deficit Hyperactivity Disorder - Cancer History Cancer Type, Location and Year: None reported - Surgical History Surgery Procedure, Year, and Place: None reported Infectious Disease History: No Infectious Disease History: Denies: Hx Hepatitis, Hx Human Immunodeficiency Virus (HIV), Traveled Outside the [place] in Last 30 Days - Family History Known Family History: Positive: Unknown - pt is adopted, Non-Contributory - Social History Occupation: Employed Full-time Lives: With Family Alcohol Use: Occasionally Alcohol Amount: "a few drinks once or twice a month" Hx Substance Use: Yes Substance Use Type: Reports: Marijuana Substance Use Comment - Amount & Last Used: 2 x per week Hx Tobacco Use: Yes Smoking Status (MU): Light Every Day Tobacco Smoker Type: Cigarettes Amount Used/How Often: a couple per day Review of Systems Constitutional: Negative Negative: Fever, Chills ENT: Negative Cardiovascular: Negative Respiratory: Negative Positive: Abdominal Pain, Vomiting, Diarrhea, Nausea Genitourinary: Negative Neurological/Mental Status: Negative All Other Systems Reviewed And Are Negative: Yes Physical Exam Triage Information Reviewed: Yes Vital Signs On Initial Exam: Initial Vitals Temp Pulse Resp BP Pulse Ox 98.2 F 82 15 152/98 98 08/13/19 10:29 08/13/19 10:29 08/13/19 10:29 08/13/19 10:29 08/13/19 10:29 Vital Signs Reviewed: Yes Appearance: Positive: Well-Appearing - Patient lying in bed in no acute distress. Lips are chapped mouth is dry. Thin. Skin: Positive: Warm, Dry Head/Face: Positive: Normal Head/Face Inspection Eyes: Positive: Normal, EOMI Neck: Positive: Supple Respiratory/Lung Sounds: Positive: Clear to Auscultation, Breath Sounds Present Cardiovascular: Positive: Normal, RRR Abdomen Description: Positive: Other: - Abdomen is soft with mild epigastric pain on palpation. No rebound tenderness or guarding. Neurological: Positive: Normal, CN Intact II-III Psychiatric: Positive: Affect/Mood Appropriate Procedures - Sedation Patient Received Moderate/Deep Sedation with Procedure: No Diagnostics - Vital Signs Vital Signs Temp Pulse Resp BP Pulse Ox 08/13/19 10:29 98.2 F 82 15 152/98 98 - Laboratory Result Diagrams: 08/13/19 10:59 08/13/19 10:59 Lab Statement: Any lab studies that have been ordered have been reviewed, and results considered in the medical decision making process. Abdominal Pain Male Course/Dx - Course Course Of Treatment: Pt. with NV and epigastric pain. Numerous visits with similar sxs. Pt. notes he is unable to tolerate any PO fluids. Tried PO ativan at home. Benign abd. exam. Will give IV fluids, compazine and GI cocktail. Shortly after medications were given pt. started requesting to be discharged so he can go home and sleep. Labs unremarkable. Pt. will be dc per request. Advised to avoid drug and ETOH use. Will f.u with pcp and return to er if sxs change or worsen. - Diagnoses Differential Diagnosis/HQI/PQRI: Appendicitis, Bowel Obstruction, Gall Bladder Disease, Hepatitis Provider Diagnoses: Abdominal pain, Nausea & vomiting Discharge ED - Sign-Out/Discharge Documenting (check all that apply): Patient Departure - Discharge Plan Condition: Improved Disposition: HOME Patient Education Materials: Acute Nausea and Vomiting (ED), Acute Abdominal Pain (ED) Referrals: Jennifer Lawson DO [Primary Care Provider] - Additional Instructions: Follow up with your PCP in 2-3 days Increase fluids and rest Avoid drug and alcohol use Return to ER if symptoms change or worsen - Billing Disposition and Condition Condition: IMPROVED Disposition: Home - Attestation Statements Provider Attestation: I was available for consult. This patient was seen by the [facility]. The patient was not presented to, seen by, or examined by me. Patrick Pruitt MD
[2019-08-13 11:10] LABS: ABS Lymphocytes 1.1 10^3/ul (1.0-4.8); ABS Monocytes 0.7 10^3/ul (0-0.8); ABS Neutrophils 4.5 10^3/ul (1.5-7.7); Eosinophil % 0.2 %; Hematocrit 47 % (42-52); Hemoglobin 16.4 g/dL (14.0-18.0); Mean Corpuscular HGB Conc 35 g/dL (31-36); Mean Corpuscular Hemoglobin 31 pg (27-31); Mean Corpuscular Volume 88 fL (80-94); Nucleated Red Blood Cells % 0.1; Platelet Count 219 10^3/uL (150-450); Red Blood Count 5.31 10^6 /uL (4.18-5.48); Red Cell Distribution Width 14 % (10-15); White Blood Count 6.4 10^3/uL (3.5-10.8)
[2019-08-13 11:44] LABS: ALT 47 U/L (7-52); AST 20 U/L (13-39); Albumin 4.8 g/dL (3.2-5.2); Albumin/Globulin Ratio 1.6 (1-3); Alkaline Phosphatase 73 U/L (34-104); Anion Gap 10 mmol/L (2-11); BUN/Creatinine Ratio 22.4 (8-20); Blood Urea Nitrogen 24 mg/dL (6-24); CO2 Carbon Dioxide 26 mmol/L (22-32); Calcium 10.1 mg/dL (8.6-10.3); Chloride 99 mmol/L (101-111); EGFR African American 101.1 (>60); EGFR Non-African American 83.5 (>60); Glucose 130 mg/dL (70-100); Potassium 3.8 mmol/L (3.5-5.0); Sodium 135 mmol/L (135-145); Total Protein 7.8 g/dL (6.4-8.9)
[2019-08-13 12:10] VITALS: BP 125/85
== END 2019-08-13 12:08 | disposition home or self-care (01) ==
LOC: ED 10:28
DX: R10.9 Unspecified abdominal pain (principal); R11.2 Nausea with vomiting, unspecified; R19.7 Diarrhea, unspecified; Z79.899 Other long term (current) drug therapy; F17.210 Nicotine dependence, cigarettes, uncomplicated
CPT/HCPCS: 36415; 80053; 83690; 85025; 96361; 96374; 99283; A9270-GY; J2765

== ENCOUNTER 2019-08-14 15:02 | Emergency (ER) | payer BC, OTHER ==
[2019-08-14 15:25] VITALS: BP 141/90
[2019-08-14] MEDS ORDERED: LORazepam INJ* 2 MG/ML 1 ML VIAL IV PUSH ONE (15:36)
[2019-08-14] MEDS ORDERED: diPHENhydraMINE IV* 50 MG/ML 1 ml VIAL (BENADRYL) SLOW PUSH ONE (15:36)
[2019-08-14] MEDS ORDERED: Metoclopramide IV* 5 MG/ML 2 ML VIAL IV SLOW PU ONE (15:36)
[2019-08-14] MEDS ORDERED: Lorazepam PYXIS KEY PRN (15:36)
[2019-08-14] MEDS ORDERED: NS 0.9% 1000 ML** 1,000 ML IV ONE ×2 (15:37→17:14)
--- NOTE | 2019-08-14 15:43 | UC ---
Nausea/Vomiting/Diarrhea HPI - HPI Summary HPI Summary: 28-year-old male comes in with chief complaint of cyclic vomiting episode. Patient does have a history of cyclic vomiting and this feels like a typical episode that he has not been able to control himself. This started 2 days ago. No fevers or chills. He has a lot of dry heaving and is having epigastric pain which is typical with these episodes. Does feel dehydrated mouth feels slightly dry. - History of Current Complaint Chief Complaint: UCAbdominalPain Stated Complaint: VOMITING Time Seen by Provider: 08/14/19 15:16 Pain Intensity: 8 - Allergies/Home Medications Allergies/Adverse Reactions: Allergies Allergy/AdvReac Type Severity Reaction Status Date / Time No Known Allergies Allergy Verified 08/13/19 10:31 Home Medications: Home Medications Albuterol HFA INHALER* [Ventolin HFA Inhaler*] 2 puff INH Q4H PRN 08/13/19 [ History Confirmed 08/14/19] Lorazepam INTENSOL CONC.(NF) [Ativan Intensol (NF)] 0.5 - 1 ml PO .Q6-8H PRN [History Confirmed 08/14/19] PMH/Surg Hx/FS Hx/Imm Hx Previously Healthy: Yes - cyclic vomiting - Surgical History Surgical History: None Surgery Procedure, Year, and Place: None reported - Family History Known Family History: Positive: Unknown - pt is adopted, Non-Contributory - Social History Alcohol Use: Occasionally Alcohol Amount: "a few drinks once or twice a month" Substance Use Type: Marijuana Substance Use Comment - Amount & Last Used: 2 x per week Smoking Status (MU): Light Every Day Tobacco Smoker Type: Cigarettes Amount Used/How Often: a couple per day Household Exposure Type: Cigarettes - Immunization History Most Recent Influenza Vaccination: 2013 Most Recent Tetanus Shot: unknown Most Recent Pneumonia Vaccination: never Review of Systems All Other Systems Reviewed And Are Negative: Yes Constitutional: Positive: Other - see hpi Skin: Positive: Negative Eyes: Positive: Negative ENT: Positive: Other - see hpi Respiratory: Positive: Negative Cardiovascular: Positive: Negative Gastrointestinal: Positive: Abdominal Pain, Vomiting, Nausea Motor: Positive: Negative Neurovascular: Positive: Negative Musculoskeletal: Positive: Negative Neurological/Mental Status: Positive: Negative Psychological: Positive: Negative Is Patient Immunocompromised?: No Physical Exam Triage Information Reviewed: Yes Appearance: Well-Nourished, Ill-Appearing - mild, Pain Distress - mild Vital Signs: Initial Vital Signs Temp 98.6 F 08/14/19 15:21 Pulse 86 08/14/19 15:21 Resp 16 08/14/19 15:21 BP 141/90 08/14/19 15:21 Pulse Ox 98 08/14/19 15:21 Vital Signs Reviewed: Yes Eye Exam: Normal Eyes: Positive: Conjunctiva Clear ENT: Positive: Other - Oral mucosa slightly dry. Neck: Positive: Supple Respiratory: Positive: Lungs clear, Normal breath sounds, No respiratory distress Cardiovascular: Positive: RRR Abdomen Description: Positive: Other: - Tenderness to palpation in the epigastrium. Bowel Sounds: Positive: Hypoactive Musculoskeletal: Positive: Strength Intact, ROM Intact Neurological: Positive: Alert, Muscle Tone Normal Psychological: Positive: Age Appropriate Behavior Skin Exam: Normal Naus/Vom/Diarrhea Course/Dx - Differential Dx/Diagnosis Provider Diagnosis: Nausea & vomiting, Dehydration, Epigastric abdominal pain Discharge ED - Sign-Out/Discharge Documenting (check all that apply): Patient Departure All imaging exams completed and their final reports reviewed: No Studies - Discharge Plan Condition: Stable Disposition: HOME Patient Education Materials: Acute Nausea and Vomiting (ED), Dehydration (ED), Epigastric Pain (ED) Referrals: Jennifer Lawson DO [Primary Care Provider] - Additional Instructions: FOLLOW UP WITH YOUR DOCTOR. GO TO THE EMERGENCY DEPARTMENT IF NOT IMPROVED OR WORSE; PAIN, FEVER, DEHYDRATION OR ANY QUESTIONS OR CONCERNS. - Billing Disposition and Condition Condition: STABLE Disposition: Home
[2019-08-14] MEDS ORDERED: Lorazepam PYXIS KEY ONE (15:53)
== END 2019-08-14 18:19 | disposition home or self-care (01) ==
LOC: UCEAST 15:02
DX: E86.0 Dehydration (principal); R11.2 Nausea with vomiting, unspecified; R10.13 Epigastric pain; F17.210 Nicotine dependence, cigarettes, uncomplicated
CPT/HCPCS: 96360; 96361; 96374; 96375; 99212; G0463; J1200; J2060; J2765

== ENCOUNTER 2023-06-01 09:14 | Inpatient (IN) ==
[2023-06-01] MEDS ORDERED: Lactated Ringers 1000 ml BAG 1,000 ML IV ONE (09:34)
[2023-06-01 09:54] LABS: ABS Basophils 0.1 10^3/uL (0.0-0.1); ABS Monocytes 0.8 10^3/uL (0.0-1.1); ABS Neutrophils 3.9 10^3/uL (1.5-7.6); ABS Nucleated RBC 0.03 10^3/ul; Eosinophil % 0.2 %; Lymphocyte % 29.2 %; Mean Corpuscular Hemoglobin 30.4 pg (27-33); Mean Corpuscular Hgb Conc 34.7 g/dL (31-36); Mean Corpuscular Volume 87.5 fL (80-97); Mean Platelet Volume 8.1 fL (7.5-11.2); Nucleated Red Blood Cells % 0.5 %/100WBC (0.0-0.8); Platelet Count 283 10^3/uL (150-450); Red Cell Distribution Width 13.4 % (12-17); White Blood Count 6.7 10^3/uL (3.6-10.2)
[2023-06-01 10:11] LABS: Albumin 4.9 g/dL (3.2-5.2); Albumin/Globulin Ratio 1.7 (1-3); Calcium 9.6 mg/dL (8.6-10.3); Creatinine, Serum 1.19 mg/dL (0.67-1.17); Globulin 2.9 g/dL (2-4); Potassium 3.6 mmol/L (3.5-5.0); Total Bilirubin 2.1 mg/dL (0.2-1.0); Total Protein 7.8 g/dL (6.4-8.9); eGFR CKD-EPI 84.3 (>60)
[2023-06-01 11:58] LABS: Urine Benzodiazepine Screen Presumptive Positive (None Detect); Urine Cannabinoids Screen Presumptive Positive (None Detect); Urine Opiates Screen None Detected (None Detect)
[2023-06-01 12:02] LABS: Urine Appearance Cloudy; Urine Bilirubin Negative (Negative); Urine Blood Negative (Negative); Urine Color Amber; Urine Glucose Negative (Negative); Urine Ketones 1+ (Negative); Urine Nitrite Negative (Negative); Urine Protein 1+(30 mg/dL) (Negative); Urine Specific Gravity 1.028 (1.002-1.030); Urine Urobilinogen Negative (Negative)
[2023-06-01 12:30] LABS: Urine Bacteria Absent (Absent); Urine Red Blood Cell Trace(0-2/hpf) (Absent); Urine Squamous Epithelial Cell Present (Absent); Urine White Blood Cell Trace(0-5/hpf) (Absent)
[2023-06-01] MEDS ORDERED: Al Hydrox/Mg Hydrox/Simet LIQ 30 ML UDC PO PRN (14:19)
[2023-06-01] MEDS: Nicotine GUM 2MG FRUIT FLAVOR PO PRN (14:36)
[2023-06-01 15:54] VITALS: BP 137/75
[2023-06-01] MEDS: Vitamin THERAPEUTIC TAB PO SCH (16:34)
[2023-06-01] MEDS: Nicotine PATCH 14 MG/24 HR PATCH TRANSDERM SCH (16:34)
[2023-06-02] MEDS: Nicotine GUM 2MG FRUIT FLAVOR PO PRN (07:41)
[2023-06-02] MEDS: Nicotine PATCH 14 MG/24 HR PATCH TRANSDERM SCH (07:41)
[2023-06-02] MEDS: Vitamin THERAPEUTIC TAB PO SCH (07:41)
[2023-06-02] MEDS ORDERED: OLANZapine 10 mg TAB*ODT PO PRN (12:05)
[2023-06-02] MEDS ORDERED: OLANZapine 10 mg TAB*ODT PO ONE (12:06)
== END 2023-06-02 15:27 | disposition home or self-care (01) | DRG 812 ==
LOC: ED 09:14 → BSU 13:07 → EDHOLD 14:12 → BSU 14:18
PROVIDERS: ADMIT Psychiatry & Neurology Addiction Psychiatry; ATTEND Psychiatry & Neurology Addiction Psychiatry